=== PATIENT | female | born 1945 | race Caucasian/White ===

== ENCOUNTER → 2017-09-18 15:53 | Outpatient (REF) | payer MEDICARE, OTHER, SELFPAY ==
[2017-09-18 17:33] LABS: Basophils % 0.5 % (0.1-2.0); Eosinophils # 0.1 K/mm3 (0.0-0.4); Eosinophils % 1.6 % (0.1-12.0); Hemoglobin 15.5 g/dL (12.2-16.2); Lymphocytes # 2.8 K/mm3 (0.7-4.5); Mean Corpuscular HGB Conc 31.7 g/dL (31.8-35.4); Monocytes # 0.4 K/mm3 (0.1-1.0); Neutrophils # 4.9 K/mm3 (1.8-7.8); Neutrophils % 58.9 % (37.0-80.0); Platelet Count 177 K/mm3 (142-424); Red Cell Distribution Width 13.3 % (11.5-17.5); White Blood Count 8.2 K/mm3 (4.8-10.8)
[2017-09-18 19:52] LABS: Alanine Aminotransferase 49 U/L (12-78); Albumin Level 3.9 gm/dL (3.4-5.0); Alkaline Phosphatase 137 U/L (46-116); Aspartate Amino Transferase 52 U/L (15-37); Bilirubin,Total 0.4 mg/dL (0.2-1.0); Blood Urea Nitrogen 8 mg/dL (7-18); Calcium 10.1 mg/dL (8.5-10.1); Carbon Dioxide 30 mmol/L (21.0-32.0); Chloride 100 mmol/L (98-107); Chol/HDL Ratio 5.7 (1-3.5); Cholesterol 200 mg/dL (140-200); Creatinine,Serum 0.68 mg/dL (0.55-1.02); Estimated Glomerular Filt Rate 86 ml/min (>60); GFR (African American) 104 ML/MIN (>60); Globulin 3.8 gm/dl (1.3-3.2); Glucose 92 mg/dL (74-106); HDL Cholesterol 35 mg/dL (29-89); LDL Cholesterol 119 mg/dL (0-130); Magnesium 1.8 mg/dL (1.4-2.2); Sodium 139 mmol/L (136-145); T4 (Thyroxine) 11.5 ug/dl (4.7-13.3); Thyroid Stimulating Hormone 2.66 uIU/ml (0.358-3.740); Total Protein,Serum 7.7 gm/dL (6.4-8.2); Triglycerides 232 mg/dL (30-200); VLDL Cholesterol 46 mg/dL (0-40)
== END ==
LOC: LAB 15:53
PROVIDERS: Visit Provider Physician Assistant
DX: R53.83 Other fatigue (principal); I10 Essential (primary) hypertension; I49.8 Other specified cardiac arrhythmias
CPT/HCPCS: 80053; 80061; 83735; 84436; 84443; 85025

== ENCOUNTER → 2018-04-02 10:27 | Outpatient (POV) | payer MEDICARE, OTHER, SELFPAY | PROVIDERS: Visit Provider Dermatology | DX: Z00.00 Encounter for general adult medical examination without abnormal findings (principal) ==

== ENCOUNTER → 2019-02-19 18:10 | Outpatient (CLI) | payer MEDICARE, OTHER, SELFPAY ==
[2019-02-19 20:13] LABS: Amphetamine/Metha Screen,Urine Negative ng/mL (<1000); Barbiturates Screen,Urine Negative ng/mL (<200); Benzodiazepines Screen,Urine Positive ng/mL (<200); Cannabinoid Screen,Urine Negative ng/mL (<50); Cocaine Screen,Urine Negative ng/mL (<300); Methadone Screen,Urine Negative ng/mL (<300); Opiate Screen,Urine Negative ng/mL (<300); Phencyclidine Screen,Urine Negative ng/mL (<25)
== END ==
PROVIDERS: Visit Provider Nurse Practitioner Family
DX: Z79.899 Other long term (current) drug therapy (principal)
CPT/HCPCS: 80305

== ENCOUNTER → 2019-02-25 17:14 | Outpatient (CLI) | payer MEDICARE, OTHER, SELFPAY ==
[2019-02-25 17:30] LABS: Basophils # 0.1 K/mm3 (0-0.2); Basophils % 0.7 % (0.1-2.0); Eosinophils # 0.1 K/mm3 (0.0-0.4); Eosinophils % 1.3 % (0.1-12.0); Hematocrit 44.6 % (37.0-47.0); Hemoglobin 14.6 g/dL (12.2-16.2); Lymphocytes # 2.9 K/mm3 (0.7-4.5); Lymphocytes % 34.2 % (10-50); Mean Corpuscular HGB Conc 32.8 g/dL (31.8-35.4); Mean Corpuscular Hemoglobin 32.9 pg (27.0-31.2); Mean Corpuscular Volume 100.3 fl (81-99); Mean Platelet Volume 10.1 fl (7.4-10.4); Monocytes # 0.4 K/mm3 (0.1-1.0); Monocytes % 4.5 % (1.7-9.3); Neutrophils % 59.3 % (37.0-80.0); Platelet Count 168 K/mm3 (142-424); Red Blood Count 4.44 M/mm3 (4.20-5.40); Red Cell Distribution Width 13.4 % (11.5-17.5); White Blood Count 8.4 K/mm3 (4.8-10.8)
[2019-02-25 18:16] LABS: Anion Gap 15.5 mEq/L (5-15); Blood Urea Nitrogen 10 mg/dL (7-18); Calcium 9.8 mg/dL (8.5-10.1); Carbon Dioxide 26 mmol/L (21.0-32.0); Chloride 100 mmol/L (98-107); Creatinine,Serum 0.63 mg/dL (0.55-1.02); Estimated Glomerular Filt Rate 93 ml/min (>60); GFR (African American) 112 ML/MIN (>60); Glucose 94 mg/dL (74-106); Potassium 4.5 mmoL/L (3.5-5.1); Sodium 137 mmol/L (136-145)
[2019-02-27 13:20] LABS: Vitamin B12 662 pg/mL (232-1245)
[2019-02-27 13:21] LABS: Folate >20.0 ng/mL (>3.0)
== END ==
PROVIDERS: Visit Provider Physician Assistant
DX: H35.342 Macular cyst, hole, or pseudohole, left eye (principal); M10.9 Gout, unspecified; D64.9 Anemia, unspecified
CPT/HCPCS: 80048; 82607; 82746; 85025

== ENCOUNTER → 2019-06-13 10:53 | Outpatient (CLI) | payer MEDICARE, OTHER, SELFPAY ==
--- NOTE | 2019-06-13 10:55 | XR_ITS ---
PROCEDURE: XR CHEST 2V CLINICAL HISTORY: Cough COMPARISON: CXR CHEST(2 VIEWS-NOT PORTABLE) from 01/16/2014 FINDINGS: The cardiomediastinal silhouette and pulmonary vascularity are within normal limits. Patchy infiltrate is present in the right lower lung zone. There is COPD changes No acute bony abnormalities. IMPRESSION: COPD with patchy right lower lobe infiltrate Dictated by: Gibson Yang MD 06/13/2019 11:19 Electronically signed by Gibson Yang MD in [facility] 06/13/2019 11:19
== END ==
PROVIDERS: PCP Physician Assistant; Visit Provider Physician Assistant
DX: R05 Cough (principal)
CPT/HCPCS: 71046

== ENCOUNTER → 2019-06-18 07:48 | Outpatient (CLI) | payer MEDICARE, OTHER, SELFPAY ==
--- NOTE | 2019-06-18 07:48 | MR_ITS ---
PROCEDURE: MR HEAD/BRAIN WO CON CLINICAL INDICATION: TIAs Severe headache with dizziness, TIAs the COMPARISON: No exams were available for comparison TECHNIQUE: Routine multiplanar multi echo sequences are performed without gadolinium enhancement. FINDINGS: No midline shift, mass effect, intracranial hemorrhage, or hydrocephalus. There are scattered periventricular and subcortical T2 white matter hyperintensities which do not demonstrate restricted diffusion consistent with ischemic gliotic change from microvascular disease. A small T2 hyperintensity is present in the left posterior basal ganglia and could be due to an old small lacunar infarction. No acute infarction is evident. The cerebellopontine angles, cerebellum, and brainstem are unremarkable. There is partial empty sella as a normal variant. No pituitary mass. The optic chiasm corpus callosum and craniocervical junction have an unremarkable appearance. No mastoid effusion or sinus air-fluid level. IMPRESSION: 1. No acute intracranial findings. 2. Scattered periventricular and subcortical T2 white matter hyperintensities which may be due to ischemic gliotic change from microvascular disease. Differential diagnosis includes migraine headache and demyelinating process. There appears to be an old small lacunar infarction in the left basal ganglia posteriorly Dictated by: Gibson Yang MD 06/19/2019 09:59 Electronically signed by Gibson Yang MD in [facility] 06/19/2019 09:59
--- NOTE | 2019-06-18 07:48 | US_ITS ---
PROCEDURE: US ABDOMEN COMPLETE CLINICAL INDICATION: AAA noted on CT of ABD 12/2018 COMPARISON: ABD US ABD(COMPLETE-MULTI ORGANS from 12/29/2015 CT ABDOMEN PELVIS WO CON from 01/03/2019 FINDINGS: PANCREAS: Unremarkable. No obvious mass or abnormal fluid collection. No ductal dilatation LIVER: No focal liver lesions demonstrated. Homogeneous echogenicity. No intrahepatic biliary ductal dilatation evident. There is appropriate direction of blood flow within a non dilated portal vein RIGHT KIDNEY: Unremarkable. Normal size and echogenicity. No hydronephrosis LEFT KIDNEY: There are 2 small cyst along the lower pole the left kidney at 2 and 1 cm GALLBLADDER: Status post cholecystectomy. Normal common bile duct at 3 mm. AORTA: There is a lower abdominal aortic aneurysm lobular in contour with the superior aspect measuring 3 cm in AP tapering to 2 cm and then again dilating to 3 cm. Maximum transverse dimension is 3.6 cm. SPLEEN: Unremarkable. Normal size and echogenicity ASCITES: None demonstrated. IMPRESSION: 1. Status post cholecystectomy. 2. 3.6 cm infrarenal abdominal aortic aneurysm Dictated by: Gibson Yang MD 06/18/2019 19:32 Electronically signed by Gibson Yang MD in [facility] 06/18/2019 19:32
== END ==
PROVIDERS: PCP Internal Medicine; Visit Provider Internal Medicine Cardiovascular Disease
DX: Q21.1 Atrial septal defect (principal); R00.2 Palpitations; R06.00 Dyspnea, unspecified; I71.4 Abdominal aortic aneurysm, without rupture; G45.9 Transient cerebral ischemic attack, unspecified
CPT/HCPCS: 70551; 76700; 93306

== ENCOUNTER → 2019-08-05 14:23 | Outpatient (CLI) | payer MEDICARE, OTHER, SELFPAY ==
--- NOTE | 2019-08-05 14:26 | XR_ITS ---
PROCEDURE: XR CHEST 2V CLINICAL HISTORY: PNEUMONIA FU Smoker COMPARISON: CXR CHEST(2 VIEWS-NOT PORTABLE) from 01/16/2014 XR CHEST 2V from 06/13/2019 FINDINGS: The cardiomediastinal silhouette and pulmonary vascularity are within normal limits. Coronary artery calcifications Changes of COPD. There are persistent increased markings in the right lower lobe. This is not significantly changed and could represent residual infiltrate or atelectatic or fibrotic changes. There is evidence of old granulomatous disease. Left lung is clear. No acute bony anomalies.. There are is also some increased density in the right middle lobe IMPRESSION: Persistent patchy density in the right lower lobe and also some increased markings in the right middle lobe which may be due to underlying residual infiltrate, atelectatic change, or fibrotic change. Chest CT may provide further evaluation in this patient with history of smoking Dictated by: Gibson Yang MD 08/05/2019 14:51 Electronically signed by Gibson Yang MD in [facility] 08/05/2019 14:51
== END ==
PROVIDERS: PCP Internal Medicine; Visit Provider Internal Medicine
DX: J18.9 Pneumonia, unspecified organism (principal)
CPT/HCPCS: 71046

== ENCOUNTER → 2019-08-13 14:45 | Outpatient (CLI) | payer MEDICARE, OTHER, SELFPAY ==
--- NOTE | 2019-08-13 14:51 | CT_ITS ---
PROCEDURE: CT CHEST WO CON CLINICAL INDICATION: PERSISTENT RT LL INFILTRATE Follow-up persistent pneumonia, cough, abnormal chest x-ray, smoker COMPARISON: CT ABDOMEN PELVIS WO CON from 01/03/2019 XR CHEST 2V from 08/05/2019 TECHNIQUE: Axial images obtained with sagittal and coronal reformats. All CT scans at the facility use one or more dose reduction, viz: automated exposure control, ma/kV adjustment per patient size (including targeted exams where dose is matched to indication, i.e. head), or iterative reconstruction technique. FINDINGS: HEART AND MEDIASTINAL STRUCTURES: Scattered small nodes are present in the mediastinum measuring up to 1.6 x 1.3 cm in the pretracheal region. A precarinal node is present measuring up to 1.4 by 0.9 cm. That no does contain some calcium. There are calcified hilar lymph nodes on the right. Coronary artery calcifications are present. There is normal heart size. LUNGS AND PLEURAL SPACES: There is faint mosaic mostly peripheral ground-glass attenuation in both upper lobes and in the lower lobes posteriorly with some mild interlobular septal thickening in the lung bases posteriorly. There is a calcified granuloma in the superior segment of the right lower lobe. A noncalcified 4 mm nodules present in the left upper lobe posteriorly the BONY STRUCTURES: No acute bony abnormalities apparent. UPPER ABDOMEN: There are scattered small nodes in the celiac and portal region which are nonspecific. ADDITIONAL FINDINGS: No other significant abnormalities. IMPRESSION: 1. Mosaic mostly peripheral ground-glass attenuation in both upper lobes and lower lobes associated with some interlobular septal thickening. This is nonspecific but may be seen with interstitial lung disease. Resolving edema or pneumonitis is also considered. 2. 4 mm noncalcified nodule left upper lobe posteriorly. Consider six-month follow-up. 3. Mild mediastinal adenopathy Dictated by: Gibson Yang MD 08/14/2019 08:33 Electronically signed by Gibson Yang MD in [facility] 08/14/2019 08:33
== END ==
PROVIDERS: PCP Internal Medicine; Visit Provider Internal Medicine
DX: R91.8 Other nonspecific abnormal finding of lung field (principal)
CPT/HCPCS: 71250

== ENCOUNTER → 2019-08-25 08:35 | Outpatient (CLI) | payer MEDICARE, OTHER, SELFPAY ==
--- NOTE | 2019-08-25 08:40 | CA_ITS ---
APPROVED REPORT Post Form Remover: CT Laterality: Bilateral Study Quality: Adequate Indications: HTN, AAA, HLD, CAD, PAD Doppler Spectral Velocity Analysis ECA (R) 106.20/12.00 cm/s ECA (L) 299.40/19.20 cm/s dICA (R) 102.00/35.10 cm/s dICA (L) 99.40/38.50 cm/s Ivy (R) 123.40/40.30 cm/s Ivy (L) 102.70/31.00 cm/s pICA (R) 90.80/29.10 cm/s pICA (L) 105.80/22.30 cm/s dCCA (R) 60.40/19.90 cm/s dCCA (L) 51.30/17.10 cm/s pCCA (R) 56.50/12.80 cm/s pCCA (L) 61.00/17.30 cm/s Vert (R) 45.60/15.40 cm/s Vert (L) 49.20/11.80 cm/s ICA/CCA 2.00 ICA/CCA 2.10 Conclusion Duplex evaluation demonstrates stenosis of the right proximal internal carotid artery <20%. Duplex evaluation demonstrates stenosis of the left proximal internal carotid artery <20%, plaque noted in the bulb. Duplex evaluation demonstrates antegrade flow of the bilateral Vertebral Arteries. Electronically signed by : Gibson Yang MD 08/25/2019 18:20:47
== END ==
PROVIDERS: PCP Internal Medicine; Visit Provider Internal Medicine
DX: R09.89 Other specified symptoms and signs involving the circulatory and respiratory systems (principal); Z86.73 Personal history of transient ischemic attack (TIA), and cerebral infarction without residual deficits
CPT/HCPCS: 93880

== ENCOUNTER → 2019-11-26 07:57 | Outpatient (CLI) | payer MEDICARE, OTHER, SELFPAY ==
--- NOTE | 2019-11-26 08:09 | US_ITS ---
PROCEDURE: US ABDOMEN COMPLETE CLINICAL INDICATION: KIDNEY CYST,ABD PAIN COMPARISON: US US ABDOMEN COMPLETE from 06/18/2019 FINDINGS: PANCREAS: Unremarkable. No obvious mass or abnormal fluid collection. No ductal dilatation LIVER: No focal liver lesions demonstrated. Homogeneous echogenicity. No intrahepatic biliary ductal dilatation evident. There is appropriate direction of blood flow within a non dilated portal vein RIGHT KIDNEY: Unremarkable. Normal size and echogenicity. No hydronephrosis LEFT KIDNEY: There is a small septated cyst along the lower pole of the left kidney at 2.3 x 1.9 cm not significantly changed GALLBLADDER: Status post cholecystectomy. Common bile duct is normal at 4 mm. AORTA: There is an abdominal aortic aneurysm fusiform in nature measuring 3.1 x 3.4 cm AP and transverse. The abdominal aorta has a somewhat our glass shape at 3.3 cm AP them be coming 2.3 cm AP then becoming 3.2 cm AP. SPLEEN: Unremarkable. Normal size and echogenicity ASCITES: None demonstrated. IMPRESSION: 1. No change 3 cm abdominal aortic aneurysm 2. No change septated left renal cyst Dictated b Gibson Yang MD 11/26/2019 16:02 Gibson Yang MD in [facility] 11/26/2019 16:02
== END ==
PROVIDERS: PCP Internal Medicine; Visit Provider Internal Medicine
DX: N28.1 Cyst of kidney, acquired (principal); R10.84 Generalized abdominal pain
CPT/HCPCS: 76700

== ENCOUNTER → 2020-03-16 08:28 | Outpatient (CLI) | payer MEDICARE, OTHER, SELFPAY ==
--- NOTE | 2020-03-16 08:31 | CT_ITS ---
PROCEDURE: CT CHEST WO CON CLINICAL INDICATION: F/U LUNG NODULE Follow-up lung nodule COMPARISON: CT CT CHEST WO CON from 08/13/2019 TECHNIQUE: Axial images obtained with sagittal and coronal reformats. All CT scans at the facility use one or more dose reduction, viz: automated exposure control, ma/kV adjustment per patient size (including targeted exams where dose is matched to indication, i.e. head), or iterative reconstruction technique. FINDINGS: HEART AND MEDIASTINAL STRUCTURES: There is mild mediastinal adenopathy. Pretracheal node measures up to 1.5 by 1.2 cm not significantly changed. Calcified node is present in the right hilum. Coronary artery calcifications are present. There is mild dilatation of the descending thoracic aorta at 2.6 cm. LUNGS AND PLEURAL SPACES: Changes of COPD the there is mild diffuse ground-glass attenuation of the lungs similar to the previous exam. Calcified nodule is present in the superior segment of the right lower lobe. There are mild atelectatic changes in the lower lobes. There is a 4 mm noncalcified nodule in the left upper lobe posteriorly not significantly changed. No new nodules are evident. BONY STRUCTURES: No acute bony abnormalities apparent. UPPER ABDOMEN: Unremarkable. ADDITIONAL FINDINGS: No other significant abnormalities. IMPRESSION: Overall stable CT appearance of the chest. No change in the 4 mm left upper lobe pulmonary nodule. Annual follow-up suggested. No change mild mediastinal adenopathy. Persistent mosaic ground-glass attenuation in both upper and lower lobes associated with some mild interlobular septal thickening consistent with interstitial lung disease. Dictated by: Gibson Yang MD 03/17/2020 11:23 Gibson Yang MD in [facility] 03/17/2020 11:23
== END ==
PROVIDERS: PCP Internal Medicine; Visit Provider Internal Medicine
DX: R91.8 Other nonspecific abnormal finding of lung field (principal)
CPT/HCPCS: 71250

== ENCOUNTER → 2020-03-16 08:32 | Outpatient (CLI) | payer SELFPAY ==
--- NOTE | 2020-03-16 08:39 | CT_ITS ---
PROCEDURE: CT HEART W CALCIUM SCORE CLINICAL HISTORY: SCREENING COMPARISON: No exams were available for comparison TECHNIQUE: Axial images obtained with sagittal and coronal reformats. All CT scans at the facility use one or more dose reduction, viz: automated exposure control, ma/kV adjustment per patient size (including targeted exams where dose is matched to indication, i.e. head), or iterative reconstruction technique. FINDINGS: Coronary artery calcium score is 200 indicating moderate plaque burden with high cardiovascular disease risk. Incidental note is made old granulomatous disease with partially calcified mediastinal lymph nodes. COPD with interstitial thickening also noted with some mild peripheral pulmonary fibrosis with crazy paving peripherally as seen with interstitial lung disease. IMPRESSION: Moderate calcific plaque burden with high cardiovascular disease risk Interstitial lung disease Dictated by: Gibson Yang MD 03/16/2020 09:33 Gibson Yang MD in [facility] 03/16/2020 09:33
== END ==
PROVIDERS: PCP Internal Medicine; Visit Provider Internal Medicine
DX: Z13.6 Encounter for screening for cardiovascular disorders (principal)
CPT/HCPCS: 75571

== ENCOUNTER → 2020-06-16 08:27 | Outpatient (CLI) | payer MEDICARE, OTHER, SELFPAY ==
--- NOTE | 2020-06-16 08:32 | US_ITS ---
PROCEDURE: US AORTA CLINICAL INDICATION: AAA Follow-up aortic aneurysm COMPARISON: US US ABDOMEN COMPLETE from 11/26/2019 FINDINGS: There is fusiform dilatation of the abdominal aorta. Along the superior aspect of the aneurysm the AP dimension is 3.5 cm then becoming 2.4 cm and in the timing 3 cm. Previously the largest AP dimension was 3.4 cm. Common iliacs are not dilated. IMPRESSION: Fusiform abdominal aortic aneurysm overall not significantly changed Dictated by: Gibson Yang MD 06/16/2020 17:16 Gibson Yang MD in [facility] 06/16/2020 17:16
== END ==
PROVIDERS: PCP Internal Medicine; Visit Provider Internal Medicine Cardiovascular Disease
DX: I71.4 Abdominal aortic aneurysm, without rupture (principal)
CPT/HCPCS: 76770

== ENCOUNTER → 2020-07-07 11:09 | Outpatient (CLI) | payer MEDICARE, OTHER, SELFPAY ==
--- NOTE | 2020-07-07 11:10 | NM_ITS ---
APPROVED REPORT Exam: Nuclear Stress Test Indication: H/O VT, DYSRHYTNMIA, HTN, TOB USE, FM HX, PALPITATIONS, FATIGUE Patient Location: Outpatient Ht: 5 ft 1 in Wt: 151 lbs Bra Size: 34B BSA: 1.68 m2 BMI: 28.5 History: H/O VT, DYSRHYTNMIA, HTN, TOB USE, FM HX, PALPITATIONS, FATIGUE PT REFUSED TO STAY AND FINISH THE STRESS PORTION OF THE TEST, BECAUSE OF TIME SCHEDULE.incomplete stress test due to pts refusal. Cardiac Stress and Resting SPECT Images: Cardiac Stress and Resting SPECT images were obtained using technetium 99m Myoview mCi stress and 10.52 mCi at rest. Conclusion: 1.incomplete stres test as described above. Electronically signed by : Renny Gutierrez, 07/30/2020 13:25:21
== END ==
PROVIDERS: PCP Internal Medicine; Visit Provider Internal Medicine Cardiovascular Disease
DX: R06.00 Dyspnea, unspecified (principal); I25.10 Atherosclerotic heart disease of native coronary artery without angina pectoris; I25.84 Coronary atherosclerosis due to calcified coronary lesion; I48.91 Unspecified atrial fibrillation
CPT/HCPCS: 78451; A9502

== ENCOUNTER → 2020-10-08 14:21 | Outpatient (CLI) | payer MEDICARE, OTHER, SELFPAY ==
--- NOTE | 2020-10-08 14:32 | CT_ITS ---
PROCEDURE: CT HEAD/BRAIN WO CON CLINICAL INDICATION: CONFUSION, LT ARM NUMBNESS COMPARISON: CT CT HEAD/BRAIN WO CON from 01/03/2019 TECHNIQUE: Axial images obtained. All CT scans at the facility use one or more dose reduction, viz: automated exposure control, ma/kV adjustment per patient size (including targeted exams where dose is matched to indication, i.e. head), or iterative reconstruction technique. FINDINGS: No midline shift, mass effect, intracranial hemorrhage, hydrocephalus, or extra-axial fluid collection is evident. The calvarium has an unremarkable appearance. No mastoid effusion. No sinus air-fluid level. IMPRESSION: No acute intracranial finding Dictated by: Gibson Yang MD 10/08/2020 15:44 Gibson Yang MD in [facility] 10/08/2020 15:44
[2020-10-08 14:48] LABS: Blood Urea Nitrogen 8 mg/dl (7-17); Estimated Glomerular Filt Rate 98 ml/min (>60); GFR (African American) 119 ML/MIN (>60)
== END ==
PROVIDERS: Visit Provider Internal Medicine
DX: R41.0 Disorientation, unspecified (principal); R20.0 Anesthesia of skin
CPT/HCPCS: 36415; 70450; 82565; 84520

== ENCOUNTER → 2020-11-18 11:29 | Outpatient (CLI) | payer MEDICARE, OTHER, SELFPAY ==
--- NOTE | 2020-11-18 11:32 | CA_ITS ---
APPROVED REPORT Bartender Helper: Tiny Weaver RVT Laterality: Bilateral Study Quality: Good Indications: LT BRUIT,TIA Risk Factors Hypertension: TIA/CVA History Smoking Doppler Spectral Velocity Analysis ECA (R) 106.90/8.60 cm/s ECA (L) 66.30/11.80 cm/s dICA (R) 93.00/28.90 cm/s dICA (L) 78.10/28.90 cm/s Ivy (R) 103.70/40.60 cm/s Ivy (L) 95.20/26.70 cm/s pICA (R) 77.00/24.60 cm/s pICA (L) 113.30/25.70 cm/s dCCA (R) 39.60/15.00 cm/s dCCA (L) 39.60/15.00 cm/s pCCA (R) 46.00/11.80 cm/s pCCA (L) 38.50/13.90 cm/s Vert (R) 58.80/12.80 cm/s Vert (L) 48.80/8.60 cm/s ICA/CCA 2.62 ICA/CCA 2.86 Findings Study suggests less than 20% stenosis of the right internal cartoid artery. Study suggests 20-49% stenosis (lower end of scale) of the left internal cartoid artery. Antegrade flow seen bilateral vertebral arteries. Conclusion Study suggests less than 20% stenosis of the right internal cartoid artery. Study suggests 20-49% stenosis (lower end of scale) of the left internal cartoid artery. Antegrade flow seen bilateral vertebral arteries. Electronically signed by : Gibson Yang MD 11/18/2020 16:18:18
== END ==
PROVIDERS: PCP Internal Medicine; Visit Provider Internal Medicine
DX: I65.22 Occlusion and stenosis of left carotid artery (principal)
CPT/HCPCS: 93880

== ENCOUNTER → 2021-03-01 09:41 | Outpatient (CLI) | payer MEDICARE, OTHER, SELFPAY ==
--- NOTE | 2021-03-01 09:44 | US_ITS ---
PROCEDURE: US AORTA CLINICAL INDICATION: AORTIC ANEURYSM FU COMPARISON: CT CT ABDOMEN PELVIS WO CON from 01/03/2019 US US AORTA from 06/16/2020 FINDINGS: There is mild fusiform dilatation the mid abdominal aorta at 3.6 cm proximally narrowing to 2.7 cm and then becoming dilated again at 3.6 cm. The aortic bifurcation measures 2 cm. Proximal common iliacs are unremarkable. IMPRESSION: No change abdominal aortic aneurysm measuring up to 3.6 cm Dictated by: Gibson Yang MD 03/02/2021 08:53 Gibson Yang MD in [facility] 03/02/2021 08:53
== END ==
PROVIDERS: PCP Internal Medicine; Visit Provider Internal Medicine
DX: I71.4 Abdominal aortic aneurysm, without rupture (principal)
CPT/HCPCS: 76770

== ENCOUNTER → 2021-04-11 11:36 | Outpatient (CLI) | payer MEDICARE, OTHER, SELFPAY ==
--- NOTE | 2021-04-11 11:49 | XR_ITS ---
PROCEDURE: XR ACUTE ABDOMEN SERIES CLINICAL INDICATION: EPIGASTRIC PAIN, NAUSEA COMPARISON: CR CXR CHEST(2 VIEWS-NOT PORTABLE) from 01/16/[address] ABDOMEN PELVIS WO CON from 01/03/[address] CHEST WO CON from 03/16/2020 FINDINGS: Frontal view of the chest shows COPD changes with some prominence of the interstitium in the lung bases. Increased markings are present in the lower lobes right greater than left and may be due to chronic interstitial changes. Cannot exclude patchy infiltrate in the right lung base. Upright and supine views of the abdomen show nonspecific bowel gas pattern. No intestinal obstruction or free air. Diffuse vascular calcifications. The numerous calcifications overlie the mid aspect of the left kidney medially suggesting nephrolithiasis. Some of these could be vascular as well. Other findings:None. IMPRESSION: COPD with chronic changes of the chest with possible right basilar infiltrate Calcifications overlie the left renal hilum and mid aspect of the left kidney and may be vascular or due to nephrolithiasis. Dictated by: Gibson Yang MD 04/11/2021 13:35 Gibson Yang MD in [facility] 04/11/2021 13:35
[2021-04-11 12:03] LABS: Basophils # 0.2 K/mm3 (0-0.2); Basophils % 1.8 % (0.1-2.0); Eosinophils # 0.2 K/mm3 (0.0-0.4); Eosinophils % 2.2 % (0.1-12.0); Hematocrit 44.8 % (37.0-47.0); Hemoglobin 14.5 g/dL (12.2-16.2); Lymphocytes # 2.6 K/mm3 (0.7-4.5); Lymphocytes % 27.2 % (10-50); Mean Corpuscular HGB Conc 32.4 g/dL (31.8-35.4); Mean Corpuscular Hemoglobin 32.7 pg (27.0-31.2); Mean Corpuscular Volume 100.7 fl (81-99); Mean Platelet Volume 9.2 fl (7.4-10.4); Monocytes # 0.4 K/mm3 (0.1-1.0); Monocytes % 4.6 % (1.7-9.3); Neutrophils # 6.1 K/mm3 (1.8-7.8); Neutrophils % 64.1 % (37.0-80.0); Platelet Count 194 K/mm3 (142-424); Red Blood Count 4.45 M/mm3 (4.20-5.40); Red Cell Distribution Width 13.6 % (11.5-17.5); White Blood Count 9.5 K/mm3 (4.8-10.8)
[2021-04-11 12:12] LABS: Alanine Aminotransferase 37 U/L (12-78); Albumin Level 4.4 g/dl (3.5-5.0); Albumin/Globulin Ratio 1.3 (1.1-1.8); Alkaline Phosphatase 124 U/L (38-126); Amylase 64 U/L (30-110); Anion Gap 11.7 mEq/L (5-15); Aspartate Amino Transferase 67 U/L (14-36); Bilirubin,Total 0.7 mg/dl (0.2-1.3); Blood Urea Nitrogen 7 mg/dl (7-17); Calcium 10.3 mg/dl (8.4-10.2); Carbon Dioxide 29 mmol/L (22.0-30.0); Chloride 100 mmol/L (98-107); Estimated Glomerular Filt Rate 98 ml/min (>60); GFR (African American) 118 ML/MIN (>60); Globulin 3.4 g/dL (1.3-3.2); Glucose 115 mg/dl (74-100); Potassium 4.7 mmoL/L (3.5-5.1); Sodium 136 mmol/L (136-145); Total Protein,Serum 7.8 g/dl (6.3-8.2)
== END ==
PROVIDERS: Visit Provider Internal Medicine
DX: R10.13 Epigastric pain (principal); R11.0 Nausea
CPT/HCPCS: 36415; 74021; 80053; 82150; 85025

== ENCOUNTER → 2021-04-20 12:32 | Outpatient (CLI) | payer MEDICARE, OTHER, SELFPAY ==
--- NOTE | 2021-04-20 12:38 | US_ITS ---
FINAL REPORT CLINICAL HISTORY: poss upper abd mass FINDINGS: ABDOMINAL ULTRASOUND COMPLETE: TECHNIQUE: Ultrasound images of the abdomen were obtained. FINDINGS: The liver is fatty infiltrated. The gallbladder is surgically absent. The common duct is normal. The right kidney measures 8.8 cm in length and is normal in echogenicity without hydronephrosis. The left kidney measures 9.5 cm in length and is normal in echogenicity without hydronephrosis. There is a 2.4 cm septated cyst in the left kidney. The spleen is unremarkable. There is a bilobed abdominal aortic aneurysm measuring up to 3.4 cm. The vena cava is unremarkable. IMPRESSION: Bilobed abdominal aortic aneurysm up to 3.4 cm. Fatty infiltration of the liver. Septated left renal cyst. Reviewed, Interpreted and Dictated by Tanvir Gasca MD Transcribed by Yoni Gaspar Authenticated by Tanvir Gasca MD on 04/20/2021 03:14:[address] [facility]
== END ==
PROVIDERS: PCP Family Medicine; Visit Provider Family Medicine
DX: R19.09 Other intra-abdominal and pelvic swelling, mass and lump (principal)
CPT/HCPCS: 76700

== ENCOUNTER → 2021-05-02 09:25 | Outpatient (CLI) | payer MEDICARE, OTHER, SELFPAY ==
--- NOTE | 2021-05-02 09:30 | FL_ITS ---
FINAL REPORT CLINICAL HISTORY: . abd pain, bloating, questionable mass fluoro time-1.50 FINDINGS: On the band splicer image, a normal bowel gas pattern is identified. Postoperative changes are seen in the right upper quadrant. The patient ingested barium without difficulty. The esophagus has an unremarkable appearance. Mild gastroesophageal reflux was demonstrated. The stomach has an unremarkable appearance. The duodenum is normal. The contrast is seen to the colon by 60 minutes. No focal abnormality is seen of the small bowel. A total of 1.5 minutes of fluoroscopy time was utilized. IMPRESSION: Mild gastroesophageal reflux. Unremarkable small bowel. Authenticated by Jed Khoury III, MD on 05/02/2021 03:29:10 PM [facility]
== END ==
PROVIDERS: PCP Family Medicine; Visit Provider Family Medicine
DX: R10.10 Upper abdominal pain, unspecified (principal); R19.09 Other intra-abdominal and pelvic swelling, mass and lump
CPT/HCPCS: 74246; 74248

== ENCOUNTER → 2021-07-13 12:50 | Outpatient (CLI) | payer MEDICARE, OTHER, SELFPAY ==
[2021-07-13 13:49] LABS: Alanine Aminotransferase 26 U/L (12-78); Albumin Level 4.4 g/dl (3.5-5.0); Albumin/Globulin Ratio 1.4 (1.1-1.8); Alkaline Phosphatase 99 U/L (38-126); Anion Gap 12.3 mEq/L (5-15); Aspartate Amino Transferase 44 U/L (14-36); Bilirubin,Total 0.8 mg/dl (0.2-1.3); Blood Urea Nitrogen 8 mg/dl (7-17); Calcium 9.5 mg/dl (8.4-10.2); Carbon Dioxide 27 mmol/L (22.0-30.0); Chloride 104 mmol/L (98-107); Estimated Glomerular Filt Rate 98 ml/min (>60); GFR (African American) 118 ML/MIN (>60); Globulin 3.1 g/dL (1.3-3.2); Glucose 114 mg/dl (74-100); Potassium 4.3 mmoL/L (3.5-5.1); Sodium 139 mmol/L (136-145); Total Protein,Serum 7.5 g/dl (6.3-8.2)
== END ==
PROVIDERS: PCP Family Medicine; Visit Provider Family Medicine
DX: R10.10 Upper abdominal pain, unspecified (principal)
CPT/HCPCS: 36415; 80053

== ENCOUNTER → 2021-07-14 08:40 | Outpatient (CLI) | payer MEDICARE, OTHER, SELFPAY ==
--- NOTE | 2021-07-14 08:46 | CT_ITS ---
FINAL REPORT TECHNIQUE: Pre- and postcontrast images of the abdomen were performed by computed tomography. This study was performed with techniques to keep radiation doses as low as reasonably achievable (ALARA). Individualized dose reduction techniques using automated exposure control or adjustment of mA and/or kV according to the patient's size were employed. CLINICAL HISTORY: UPPER ABD. PAIN COMPARISON: January 08, 2019 FINDINGS: There is mild to moderate scarring/fibrosis in the lung bases. The liver has a mildly irregular contour of uncertain significance but could represent cirrhosis. There are postoperative changes from cholecystectomy. Splenomegaly is again noted measuring 13.3 cm in length. The adrenals are normal. The pancreas is unremarkable. There is infrarenal abdominal aneurysm measuring up to 3.9 cm in previously measured up to 3.5 cm. There is a small amount of mural thrombosis. There are several left renal cysts measuring up to 1.9 cm. IMPRESSION: Mildly irregular liver contour of uncertain significance, could represent cirrhosis. Splenomegaly again noted. Infrarenal abdominal aneurysm measuring up to 3.9 cm. Several left renal cysts measuring up to 1.9 cm. Reviewed, Interpreted and Dictated by Jed Khoury III, MD Transcribed by Sheri Mcguire Authenticated by Jed Khoury III, MD on 07/14/2021 10:59:04 AM [facility]
== END ==
PROVIDERS: PCP Family Medicine; Visit Provider Family Medicine
DX: R10.10 Upper abdominal pain, unspecified (principal)
CPT/HCPCS: 74170; Q9967

== ENCOUNTER 2022-01-28 23:10 | Emergency (ER) | payer MEDICARE, OTHER, SELFPAY ==
[2022-01-28 23:11] VITALS: BP 145/64; PULSE 72; RESP 18; TEMP 36.7; O2SAT 95; BMI 24.1
[2022-01-28 23:57] LABS: Basophils # 0.1 K/mm3 (0-0.2); Basophils % 0.9 % (0.1-2.0); Eosinophils # 0.2 K/mm3 (0.0-0.4); Eosinophils % 2.1 % (0.1-12.0); Hematocrit 44.6 % (37.0-47.0); Hemoglobin 14.4 g/dL (12.2-16.2); Lymphocytes # 3.1 K/mm3 (0.7-4.5); Mean Corpuscular HGB Conc 32.2 g/dL (31.8-35.4); Mean Corpuscular Volume 99.5 fl (81-99); Mean Platelet Volume 9.1 fl (7.4-10.4); Monocytes # 0.4 K/mm3 (0.1-1.0); Monocytes % 4.2 % (1.7-9.3); Neutrophils # 5.2 K/mm3 (1.8-7.8); Neutrophils % 57.8 % (37.0-80.0); Platelet Count 176 K/mm3 (142-424); Red Blood Count 4.48 M/mm3 (4.20-5.40); Red Cell Distribution Width 12.9 % (11.5-17.5)
--- NOTE | 2022-01-29 | CT_ITS ---
PROCEDURE INFORMATION: Exam: CT Abdomen And Pelvis With Contrast Exam date and time: 01/29/2022 12:25 AM Age: 76 years old Clinical indication: Abdominal pain; Acute TECHNIQUE: Imaging protocol: Computed tomography of the abdomen and pelvis with contrast. Radiation optimization: All CT scans at this facility use at least one of these dose optimization techniques: automated exposure control; mA and/or kV adjustment per patient size (includes targeted exams where dose is matched to clinical indication); or iterative reconstruction. Contrast material: ISOVUE; Contrast volume: 75 ml; Contrast route: IV; COMPARISON: CT ABDOMEN WO/W CON 07/14/2021 8:58 AM FINDINGS: Lungs: Subpleural reticular opacities are noted at both lung bases suggesting interstitial lung disease. No superimposed airspace disease. Heart: Normal heart size. Liver: Large fatty liver. Prominent left lobe compared to the right. Liver measures 18.3 cm in length. Gallbladder and bile ducts: Prior cholecystectomy. No biliary tree dilation. Pancreas: Mild pancreatic atrophy without inflammation or mass. Spleen: Spleen measures 13.0 cm in length. Adrenal glands: Normal configuration. Kidneys and ureters: Kidneys are symmetric without evidence of obstruction. Tiny low-attenuation foci are too small to fully characterize but likely cysts. Stomach and bowel: Cecum is in the low midline pelvis. Surgical clips at the base of the cecum suggest prior appendectomy. Decompressed distal colon. Patent rectosigmoid suture line. Nonspecific prominence the gastric folds appears similar to prior. Appendix: See Stomach and bowel finding. Intraperitoneal space: No free air. No significant fluid collection. Vasculature: Infrarenal abdominal aortic aneurysm measures 4.1 x 3.7 cm maximal dimension. No perianeurysmal fibrosis or hemorrhage. Lymph nodes: No enlarged lymph nodes. Urinary bladder: Unremarkable as visualized. Reproductive: Features of prior hysterectomy noted. No evidence of vaginal cuff or adnexal mass. Bones/joints: No fracture or destructive lesion. Soft tissues: Unremarkable. IMPRESSION: 1. Decompressed distal colon is nonspecific but can be seen in early colitis. Otherwise, no acute abnormality to explain patient's abdomen pain. No evidence of urolithiasis. New line unchanged bilobed infrarenal abdominal aortic aneurysm. No features of fibrosis or leak. 2. Fatty liver with configuration concerning for early cirrhosis. 3. Lung bases demonstrate features of interstitial lung disease.
--- NOTE | 2022-01-29 | XR_ITS ---
PROCEDURE INFORMATION: Exam: XR Chest Exam date and time: 01/29/2022 12:17 AM Age: 76 years old Clinical indication: Pain; Right-sided; Additional info: Right scapular pain TECHNIQUE: Imaging protocol: Radiologic exam of the chest. Views: 2 views. COMPARISON: 1. CT CHEST WO CON 03/16/2020 8:[address] CHEST WO CON 08/13/2019 3:05 PM FINDINGS: Lungs: Lungs are hyperinflated. Fine reticular opacities appear similar to prior exam. Pleural spaces: Unremarkable. No pleural effusion. No pneumothorax. Heart/Mediastinum: Unremarkable. No cardiomegaly. Bones/joints: Unremarkable. IMPRESSION: Hyperinflated with stable reticular opacities compatible with previously demonstrated interstitial lung disease. No superimposed acute cardiopulmonary abnormality.
[2022-01-29 00:10] LABS: Alanine Aminotransferase 22 U/L (12-78); Albumin Level 4.4 g/dl (3.5-5.0); Albumin/Globulin Ratio 1.2 (1.1-1.8); Alkaline Phosphatase 165 U/L (38-126); Anion Gap 16.2 mEq/L (5-15); Aspartate Amino Transferase 43 U/L (14-36); Bilirubin,Total 0.6 mg/dl (0.2-1.3); Blood Urea Nitrogen 13 mg/dl (7-17); Calcium 9.4 mg/dl (8.4-10.2); Carbon Dioxide 27 mmol/L (22.0-30.0); Chloride 97 mmol/L (98-107); Creatinine Clearance Estimated 45 mL/min (50-200); Estimated Glomerular Filt Rate 97 ml/min (>60); GFR (African American) 118 ML/MIN (>60); Globulin 3.8 g/dL (1.3-3.2); Glucose 99 mg/dl (74-100); Potassium 4.2 mmoL/L (3.5-5.1); Sodium 136 mmol/L (136-145); Total Protein,Serum 8.2 g/dl (6.3-8.2)
[2022-01-29 00:25] LABS: Troponin I < 0.01 ng/ml (0.00-0.034)
--- NOTE | 2022-01-29 01:41 | HMH.EDGENADL ---
Discharge Plan Disposition Patient Disposition: Home, Self-Care Chief Complaint: PAIN Prescriptions Prescriptions: No Action Ubrelvy 50 mg tablet PO ONCE PRN famotidine [Pepcid] 20 mg tablet 20 mg PO BID fexofenadine [Kyung Allergy] 180 mg tablet 180 mg PO DAILY cetirizine [Zyrtec] 10 mg tablet 10 mg PO DAILY PRN metoprolol succinate 100 mg tablet extended release 24 hr 50 mg PO BID folic acid 800 mcg tablet 0.8 mg PO DAILY cholecalciferol (vitamin D3) 50 mcg (2,000 unit) capsule 2,000 unit PO DAILY omega-3 fatty acids [Fish Oil Concentrate] 1,000 mg capsule 1,000 mg PO BID clopidogrel [Plavix] 75 mg tablet 75 mg PO DAILY Qty: 90 1RF Referrals Follow up/Referrals: Santosh Villalta MD [Primary Care Provider] - See instructions Clinical Impressions Clinical Impression: Thoracic back pain, AAA (abdominal aortic aneurysm) without rupture, Acute shoulder pain Instructions Patient Instructions: DI for Acute Pain -- Adult Discharge ED Provider: Tyler Escobar General Adult HPI General Chief complaint: PAIN Stated complaint: Right arm pain, upper back pain Time Seen by Provider: 01/29/22 01:41 Mode of Arrival: Ambulatory Source of Information: Patient, Relative and Medical Record Limitations: No Limitations Description of Symptoms (Recalled from ER Triage Doc. by RN): Pt reports pain thats started this AM under her right shoulder blade that radiates down to her mid back now. She denies injury. Pain is reproducable. No visable rash present. History of Present Illness HPI narrative: atraumatic pain rt shoulder area and thoracic area this am - no fever/cough or rash Onset (ago): hour(s) Location: back and upper extremity Severity: moderate Quality: sharp Consistency: intermittent Associated symptoms: denies other symptoms Treatments prior to arrival: none Related Data Home Medications Medication Instructions Recorded Confirmed cholecalciferol (vitamin D3) 50 2,000 unit PO DAILY 06/06/19 06/06/19 mcg (2,000 unit) capsule folic acid 800 mcg tablet 0.8 mg PO DAILY 06/06/19 06/06/19 metoprolol succinate 100 mg 50 mg PO BID AFIB 06/06/19 06/06/19 tablet,extended release 24 hr omega-3 fatty acids 1,000 mg 1,000 mg PO BID 09/11/19 capsule (Fish Oil Concentrate) cetirizine 10 mg tablet (Zyrtec) 10 mg PO DAILY PRN 06/10/20 06/10/20 famotidine 20 mg tablet (Pepcid) 20 mg PO BID 06/10/20 06/10/20 fexofenadine 180 mg tablet 180 mg PO DAILY 06/10/20 06/10/20 (Kyung Allergy) ubrogepant 50 mg tablet (Ubrelvy) mg PO ONCE PRN 06/10/20 Previous Rx's Medication Instructions Recorded Plavix 75 mg tablet (clopidogrel) 75 mg PO DAILY #90 tabs 05/10/21 Allergies Allergy/AdvReac Type Severity Reaction Status Date / Time amoxicillin [AMOXICILLIN] Allergy Unknown NA-NAUSEA/V Verified 06/10/20 13:26 OMITING aspirin [ASPIRIN] Allergy Unknown HEART Verified 06/10/20 13:26 PAL/HEADACHES varenicline [From CHANTIX] Allergy Unknown NA-NAUSEA/V Verified 06/10/20 13:26 OMITING/HEA DACHES rosuvastatin [From Crestor] AdvReac Intermediate headache, Verified 06/10/20 13:26 all over body feeling bad RED DYE IN FLUID PILLS Allergy Intermediate I-HIVES Uncoded 06/10/20 13:26 GENERIC DRUGS AdvReac Unknown NA-NAUSEA/VOMITING, Uncoded 01/29/22 01:16 HEADACHE. HAS TO TAKE NAME BRAND DRUGS [facility] Medical History (Updated 01/29/22 @ 01:55 by Tyler Escobar MD) Anxiety Arrhythmia GERD (gastroesophageal reflux disease) Hypertension Knee pain Migraine Nausea & vomiting Social History Smoking Status: Current every day smoker tobacco type: cigarettes packs per day: 1 second hand exposure: Yes alcohol intake: never substance use type: denies use current occupational status: retired Travel in the last 8 weeks: Inside the [place] caffeine: No ROS Obtained: Yes All syste
[2022-01-29 02:01] VITALS: BP 117/75; PULSE 70; RESP 16; TEMP 36.7; O2SAT 98
== END 2022-01-29 02:03 | disposition home or self-care (01) ==
PROVIDERS: Emergency Provider Emergency Medicine; PCP Family Medicine
DX: I71.40 Abdominal aortic aneurysm, without rupture, unspecified (principal); M25.511 Pain in right shoulder; M54.6 Pain in thoracic spine; E78.5 Hyperlipidemia, unspecified; I25.10 Atherosclerotic heart disease of native coronary artery without angina pectoris; I65.29 Occlusion and stenosis of unspecified carotid artery; M10.9 Gout, unspecified; I48.91 Unspecified atrial fibrillation; G43.909 Migraine, unspecified, not intractable, without status migrainosus; K21.9 Gastro-esophageal reflux disease without esophagitis; I49.9 Cardiac arrhythmia, unspecified; I10 Essential (primary) hypertension
CPT/HCPCS: 71046; 74177; 80053; 84484; 85025; 96374; 99284; Q9967

== ENCOUNTER 2022-02-01 19:25 | Emergency (ER) | payer MEDICARE, OTHER, SELFPAY ==
[2022-02-01 19:37] VITALS: BP 117/75; PULSE 73; RESP 19; TEMP 36.6; O2SAT 98; BMI 22.6
--- NOTE | 2022-02-01 19:43 | EXP.UTC ---
Discharge Plan Disposition Patient Disposition: Home, Self-Care Condition: Good Prescriptions Prescriptions: No Action Ubrelvy 50 mg tablet PO ONCE PRN famotidine [Pepcid] 20 mg tablet 20 mg PO BID fexofenadine [Kyung Allergy] 180 mg tablet 180 mg PO DAILY cetirizine [Zyrtec] 10 mg tablet 10 mg PO DAILY PRN metoprolol succinate 100 mg tablet extended release 24 hr 50 mg PO BID folic acid 800 mcg tablet 0.8 mg PO DAILY cholecalciferol (vitamin D3) 50 mcg (2,000 unit) capsule 2,000 unit PO DAILY omega-3 fatty acids [Fish Oil Concentrate] 1,000 mg capsule 1,000 mg PO BID clopidogrel [Plavix] 75 mg tablet 75 mg PO DAILY Qty: 90 1RF Referrals Follow up/Referrals: Santosh Villalta MD [Primary Care Provider] - See instructions Activity Restrictions/Add. Instructions Additional Instructions/Restrictions: Follow up with Dr Villalta to discuss your pain medication Return if needed Heating pads may help There is over the counter patches like tiger balm that may help with pain Straight to ER if any life threatening symptoms Clinical Impressions Clinical Impression: Thoracic back pain Instructions Patient Instructions: DI for Chronic Pain -- Adult Discharge ED Provider: Rowena Gonzalez [facility] General Stated complaint: back pain Mode of Arrival: Ambulatory Time Seen by Provider: 02/01/22 19:43 Description of Symptoms (Recalled from Triage Doc. by RN): NECK, BACK AND SHOULDER PAIN HEENT Symptoms (Recalled from RN notes): No Resp Symptoms (Recalled from RN notes): No Skin Symptoms (Recalled from RN notes): No MS Symptoms (Recalled from RN notes): Yes Functional Status (Recalled from RN notes): NA History of Present Illness Provider Complaint: Patient states that she has been having neck, back and right shoulder pain States that she was seen in the ED a couple days ago States that they wanted to give her a steriod shot and she refused it States that she went to see her PCP today and they give her Loratab and was going to give her a steriod shot and they dc'd her and forgot to give it to her States that tonight she wanted to come in and get the shot to see if it would help her with her pain Related Data Home Medications Medication Instructions Recorded Confirmed cholecalciferol (vitamin D3) 50 2,000 unit PO DAILY 06/06/19 06/06/19 mcg (2,000 unit) capsule folic acid 800 mcg tablet 0.8 mg PO DAILY 06/06/19 06/06/19 metoprolol succinate 100 mg 50 mg PO BID AFIB 06/06/19 06/06/19 tablet,extended release 24 hr omega-3 fatty acids 1,000 mg 1,000 mg PO BID 09/11/19 capsule (Fish Oil Concentrate) cetirizine 10 mg tablet (Zyrtec) 10 mg PO DAILY PRN 06/10/20 06/10/20 famotidine 20 mg tablet (Pepcid) 20 mg PO BID 06/10/20 06/10/20 fexofenadine 180 mg tablet 180 mg PO DAILY 06/10/20 06/10/20 (Kyung Allergy) ubrogepant 50 mg tablet (Ubrelvy) mg PO ONCE PRN 06/10/20 Previous Rx's Medication Instructions Recorded Plavix 75 mg tablet (clopidogrel) 75 mg PO DAILY #90 tabs 05/10/21 Allergies Allergy/AdvReac Type Severity Reaction Status Date / Time amoxicillin [AMOXICILLIN] Allergy Unknown NA-NAUSEA/V Verified 06/10/20 13:26 OMITING aspirin [ASPIRIN] Allergy Unknown HEART Verified 06/10/20 13:26 PAL/HEADACHES varenicline [From CHANTIX] Allergy Unknown NA-NAUSEA/V Verified 06/10/20 13:26 OMITING/HEA DACHES rosuvastatin [From Crestor] AdvReac Intermediate headache, Verified 06/10/20 13:26 all over body feeling bad RED DYE IN FLUID PILLS Allergy Intermediate I-HIVES Uncoded 06/10/20 13:26 GENERIC DRUGS AdvReac Unknown NA-NAUSEA/VOMITING, Uncoded 01/29/22 01:16 HEADACHE. HAS TO TAKE NAME BRAND DRUGS Worker's Comp Is this a Worker's Comp case?: No [facility] Medical History (Updated 02/01/22 @ 20:04 by Rowena Gonzalez APRN) Anxiety Arrhythmia GERD (gastroesophageal reflux disease) Hypert
[2022-02-01 20:33] VITALS: BP 117/75; PULSE 73; RESP 19; TEMP 36.6; O2SAT 98
== END 2022-02-01 20:35 | disposition home or self-care (01) ==
PROVIDERS: Emergency Provider Nurse Practitioner; PCP Family Medicine
DX: M54.6 Pain in thoracic spine (principal)
CPT/HCPCS: 96372; 99212; G0463

== ENCOUNTER → 2022-04-11 10:44 | Outpatient (CLI) | payer MEDICARE, OTHER, SELFPAY ==
--- NOTE | 2022-04-11 11:11 | US_ITS ---
FINAL REPORT CLINICAL HISTORY: RUQ ABD PAIN,ABDOMINAL AORTIC ANEURYSM WITHOUT RUPTURE FINDINGS: Limited sonographic images were obtained of the abdomen to evaluate the abdominal aorta and iliac arteries. The abdominal aorta measures up to 4.0 cm in greatest dimension. The iliac arteries are within normal limits. IMPRESSION: 4 cm abdominal aortic aneurysm. This could be further evaluated with a CTA abdomen. Reviewed, Interpreted and Dictated by Jed Khoury III, MD Transcribed by Sheri Mcguire Authenticated and [facility]
== END ==
PROVIDERS: PCP Family Medicine; Visit Provider Nurse Practitioner Family
DX: R10.10 Upper abdominal pain, unspecified (principal); I71.40 Abdominal aortic aneurysm, without rupture, unspecified
CPT/HCPCS: 76770

== ENCOUNTER 2022-06-28 16:07 | Observation (INO) | payer MEDICARE, OTHER, SELFPAY ==
--- NOTE | 2022-06-28 | CA_ITS ---
APPROVED REPORT EXAM: Comprehensive 2D, Doppler, and color-flow Echocardiogram Coping Machine Assembler: Yudy Carlin RT(R) Ht: 5 ft 1 in Wt: 120lbs BSA: 1.52 BP: 117/75 mmHg Indications: unstable angina, CP, COPD, smoker, HTN, SOB, GERD, hx of TIA. 2D Dimensions Aortic Root 1.79 cm F: 2.7 - 3.3 LVEF (Martinez's) 60.00 % F: 54 - 74 LV Volume 49.70 mL F: 46 - 106 LV Volume Index 32.70 mL/m2 F: 29 - 61 LA Volume 14.20 mL LA Volume Index 9.34 mL/m2 (M/F) 16-34 M-Mode Dimensions RVDd 3.01 cm (0.9-2.6) LA Diam 3.03 cm (1.9-4.0) LVDd 4.02 cm (3.5-5.7) Ao Diam 2.39 cm (2.0-3.7) LVDs 3.15 cm (3.5-5.7) IVSd 1.07 cm (0.6-1.1) PWd 0.67 cm (0.6-1.1) EF (Teich) 44.40% FS 21.60% EDV (Teich) 70.80 mL ESV (Teich) 39.40 mL LV Diastology E Decel Time 197.00 (160-240 msec) E/A Ratio 1.0 MED E' 6.20 (< 7 cm/sec) E'/MED E' Ratio 13.92 (>14) LAT E' 11.00 (<10 cm/sec) E/LAT E' Ratio 7.85 (>14) Mitral Valve MV E Max Jeffeyr. 86.00 (40-130 cm/s) MV A Velocity 83.00 (40-130 cm/s) E/A Ratio 1.04 MV Decel. Time 197.00 (160-240 ms) MV PHT 58.00 ms Tricuspid Valve TR P. Velocity 247.00 cm/s RAP Estimate 10.00 mmHg RVSP 34.40 mmHg Left Ventricle Left atrium is mildly enlarged, left ventricle is normal size mild concentric left ventricular hypertrophy, estimated ejection fraction 55% with no regional wall motion abnormality, grade 2 diastolic dysfunction seen without tissue Doppler evidence of late left atrial pressure. Right Ventricle Right atrium and right ventricle are mildly enlarged with normal contractility. Aortic Valve Aortic valve is thickened and calcified without aortic stenosis or aortic insufficiency. Mitral Valve Mitral valve leaflets are minimally thickened, there is trace mitral regurgitation. Tricuspid Valve Tricuspid grossly normal, there is trace tricuspid regurgitation, tricuspid regurgitation jet velocity is inadequate for calculation of the right ventricular systolic pressure. Pulmonic Valve Pulmonic valve is poorly visualized. Great Vessels Aortic root is normal size. Inferior vena cava is normal size with normal inspiratory collapse. Pericardium No significant pericardial effusion noted. Conclusion 1. Mild biatrial enlargement, normal left ventricular size, mild concentric left ventricular hypertrophy, estimated ejection fraction 55% with no regional wall motion abnormality, grade 2 diastolic dysfunction seen without tissue Doppler evidence of late left atrial pressure. 2. Mildly enlarged right ventricle with normal contractility. 3. Trace mitral and tricuspid regurgitation. 4. No significant pericardial effusion noted. 5. Inferior vena cava is normal size with normal inspiratory collapse. Electronically signed by : Renny Gutierrez MD 06/29/2022 06:22:50
--- NOTE | 2022-06-28 | CA_ITS ---
FINAL REPORT TECHNIQUE: Color Doppler, duplex Doppler and eagle scale sonography of the bilateral neck arterial vasculature was performed. Velocities were measured in the carotid arteries. Stenosis evaluation based on the validated velocity criteria. CLINICAL HISTORY: angina, left carotid bruit, history of TIA's, smoker, HTN, hyperlipidemia. COMPARISON: none FINDINGS: The peak systolic velocity of the right common carotid artery is 46 cm/s. The peak systolic velocity of the right internal carotid artery is 109 cm/s and end diastolic velocity 25 cm/s. The ICA/CCA ratio is 2.35. A mild amount of plaque is present. The right external carotid artery is patent. The right vertebral artery is patent with antegrade flow. The peak systolic velocity of the left common carotid artery is 58 cm/s. The peak systolic velocity of the left internal carotid artery is 148 cm/s and end diastolic velocity 33 cm/s. The ICA/CCA ratio is 3.68. A mild amount of plaque is present. The left external carotid artery is patent.The left vertebral artery is patent with antegrade flow. IMPRESSION: Less than 50% bilateral carotid stenoses. Bilateral patent vertebral arteries with antegrade flow. If indicated, CTA or MRA could further evaluate. Reviewed, Interpreted and Dictated by Jed Khoury III, MD Transcribed by Naa Hernandez Authenticated and [facility]
--- NOTE | 2022-06-28 16:20 | PC.NURSE ---
arrived to floor by w/c from ED admissions
[2022-06-28 16:24] VITALS: BP 136/55; PULSE 67; RESP 18; TEMP 36.7; O2SAT 94; BMI 22.7
--- NOTE | 2022-06-28 16:48 | PC.NURSE ---
per angela, order 12 lead ekg stat. pt refused covid/flu swab
--- NOTE | 2022-06-28 16:51 | ECG_ITS ---
APPROVED REPORT Exam: Resting ECG HR:60 bpm ECG Measurements Heart Rate 60 AXES [place] 142 P 49 QRSd 89 QRS 26 QT 415 T 44 QTc 416 Conclusion SINUS RHYTHM SEPTAL MYOCARDIAL INFARCTION , OF INDETERMINATE AGE [40+ ms Q WAVE IN V1/V2] ABNORMAL ECG UNCONFIRMED REPORT Electronically signed by : Wilton Ramirez MD 06/28/2022 20:23:40
[2022-06-28 17:30] LABS: Basophils # 0.1 K/mm3 (0-0.2); Basophils % 0.8 % (0.1-2.0); Eosinophils # 0.1 K/mm3 (0.0-0.4); Eosinophils % 1.3 % (0.1-12.0); Hematocrit 40.2 % (37.0-47.0); Hemoglobin 13.1 g/dL (12.2-16.2); Lymphocytes # 2.7 K/mm3 (0.7-4.5); Lymphocytes % 30.4 % (10-50); Mean Corpuscular HGB Conc 32.5 g/dL (31.8-35.4); Mean Corpuscular Hemoglobin 31.3 pg (27.0-31.2); Mean Corpuscular Volume 96.2 fl (81-99); Mean Platelet Volume 9.2 fl (7.4-10.4); Monocytes # 0.4 K/mm3 (0.1-1.0); Monocytes % 5.1 % (1.7-9.3); Neutrophils # 5.4 K/mm3 (1.8-7.8); Neutrophils % 62.5 % (37.0-80.0); Platelet Count 156 K/mm3 (142-424); Red Blood Count 4.18 M/mm3 (4.20-5.40); Red Cell Distribution Width 12.9 % (11.5-17.5); White Blood Count 8.7 K/mm3 (4.8-10.8)
[2022-06-28 17:31] LABS: Chloride 102 mmol/L (98-107); Sodium 136 mmol/L (136-145)
[2022-06-28 17:32] LABS: Potassium 4.1 mmoL/L (3.5-5.1)
[2022-06-28 17:34] LABS: Alanine Aminotransferase 20 U/L (12-78); Albumin Level 4.3 g/dl (3.5-5.0); Albumin/Globulin Ratio 1.3 (1.1-1.8); Alkaline Phosphatase 99 U/L (38-126); Anion Gap 9.1 mEq/L (5-15); Aspartate Amino Transferase 41 U/L (14-36); Bilirubin,Total 0.8 mg/dl (0.2-1.3); Blood Urea Nitrogen 9 mg/dl (7-17); Carbon Dioxide 29 mmol/L (22.0-30.0); Creatinine Clearance Estimated 42 mL/min (50-200); Estimated Glomerular Filt Rate 97 ml/min (>60); GFR (African American) 118 ML/MIN (>60); Globulin 3.3 g/dL (1.3-3.2); Glucose 76 mg/dl (74-100); Total Protein,Serum 7.6 g/dl (6.3-8.2)
[2022-06-28 17:44] LABS: NT Pro Brain Natriuretic Pep. 111 pg/mL (0-450)
[2022-06-28 17:48] LABS: Troponin I < 0.01 ng/ml (0.00-0.034)
--- NOTE | 2022-06-28 18:23 | PC.NURSE ---
pt does not know any of home meds, she only knows shes on plavix, stomach pill, heart pill pt does not have a list, pharm will verify in the am. pt alert x4, no skin issues noted. pt has been c/o lt chest pain that radiates down her arm, pt has no pain or discomfort at this time. pt is a 1ppd smoker for 60 years. pt states she has home o2 that she uses as need, 2l nc. states she does not use it too often . per antonina, order metoprolol 50mg BID, pepcid 20mg daily, apply SCUDS. lungs coa, NSR on tele. pt has a lt carotid bruit. dr miller rounded on pt, npo after midnight, ice chips only, for heart cath 06/29.
[2022-06-28 18:31] VITALS: PULSE 65
[2022-06-28 19:44] VITALS: BP 107/60; PULSE 68; RESP 17; TEMP 36.9; O2SAT 91
--- NOTE | 2022-06-28 20:18 | EXP.HP ---
History of Present Illness *Admission Date: 06/28/22 *Reason for visit:: Weakness and chest pressure *History of present illness: 76-year-old female with history of atrial dysrhythmias, coronary atherosclerosis and cerebrovascular disease. I have a record deficit and patient is not a quality historian but presented to the office today with a chief complaint of weakness when my pulse rate goes up and I have palpitations. On further questioning she noted that when she feels bad she thinks her heart rate is going up and it makes her weak, but also reported that over the past couple of days she had increasing chest pressure along with shortness of air and she points to an area underneath her left breast that she feels pressure in. She also notes the pressure radiates down the left arm into her elbow. It resolves after heart rate slows down. In the office she was found to have sinus rhythm on EKG but did have poor R wave progression and some J-point elevation in the septal leads and was admitted to hospital for cardiac consultation given her clinical picture of accelerating angina. [facility] Disclaimer: The information contained in this section may have been updated after the patient was seen, as this information can be updated by other users. Medical History (Updated 06/28/22 @ 20:20 by Wilton Ramirez MD) Anxiety Arrhythmia GERD (gastroesophageal reflux disease) Hypertension Knee pain Migraine Nausea & vomiting Family History (Updated 06/28/22 @ 17:34 by Susu Montes RN) Family history of cancer Family history of myocardial infarction Social History Smoking Status: Current every day smoker tobacco type: cigarettes packs per day: 1 second hand exposure: Yes alcohol intake: never substance use type: denies use current occupational status: retired Travel in the last 8 weeks: Inside the [place] caffeine: No Review of Systems Review of Systems Review of systems:: pertinent systems reviewed and negative unless documented below Meds Home Medications and Allergies Home Medications Medication Instructions Recorded Confirmed Type cholecalciferol (vitamin D3) 50 2,000 unit PO DAILY 06/06/19 06/06/19 History mcg (2,000 unit) capsule folic acid 800 mcg tablet 0.8 mg PO DAILY 06/06/19 06/06/19 History metoprolol succinate 100 mg 50 mg PO BID AFIB 06/06/19 06/06/19 History tablet,extended release 24 hr omega-3 fatty acids 1,000 mg 1,000 mg PO BID 09/11/19 History capsule (Fish Oil Concentrate) cetirizine 10 mg tablet (Zyrtec) 10 mg PO DAILY PRN 06/10/20 06/10/20 History famotidine 20 mg tablet (Pepcid) 20 mg PO BID 06/10/20 06/10/20 History fexofenadine 180 mg tablet 180 mg PO DAILY 06/10/20 06/10/20 History (Kyung Allergy) ubrogepant 50 mg tablet (Ubrelvy) mg PO ONCE PRN 06/10/20 History Plavix 75 mg tablet (clopidogrel) 75 mg PO DAILY #90 tabs 05/10/21 Rx New Prescriptions to Start Prescriptions: Allergies Allergy/AdvReac Type Severity Reaction Status Date / Time amoxicillin [AMOXICILLIN] Allergy Unknown NA-NAUSEA/V Verified 06/10/20 13:26 OMITING aspirin [ASPIRIN] Allergy Unknown HEART Verified 06/10/20 13:26 PAL/HEADACHES varenicline [From CHANTIX] Allergy Unknown NA-NAUSEA/V Verified 06/10/20 13:26 OMITING/HEA DACHES rosuvastatin [From Crestor] AdvReac Intermediate headache, Verified 06/10/20 13:26 all over body feeling bad RED DYE IN FLUID PILLS Allergy Intermediate I-HIVES Uncoded 06/10/20 13:26 GENERIC DRUGS AdvReac Unknown NA-NAUSEA/VOMITING, Uncoded 01/29/22 01:16 HEADACHE. HAS TO TAKE NAME BRAND DRUGS Exam Data for Last 24 hours Vital signs and Labs for Last 24 Hours: Temp Pulse Resp BP Pulse Ox 98.4 F 68 17 107/60 L 91 L 06/28/22 19:44 06/28/22 19:44 06/28/22 19:44 06/28/22 19:44 06/28/22 19:44 Laboratory Results - last 24 hr 06/28/22 17:06: WBC 8.7, RBC 4.18 L, Hgb 13.1, Hct
--- NOTE | 2022-06-28 22:23 | PC.NURSE ---
1999 PATIENT STATES SHE IS LEAVING TO GO HOME. DOES NOT WANT CARDIAC CATH. SAYS SHE HAS HER SETTLEMENT AGENT IN [place] AND WILL FOLLOW UP WITH HIM. AT 2004 DR PATEL NOTIFIED OF PATIENT WANTING TO SIGN OUT AMA. REVIEWED WITH PATIENT THE POSSIBLE OUTCOMES OF HER REFUSING TREATMENT INCLUDING , MS ETC... AMA SIGNED AT 2029, AT 2141 IV DISCONTINUED AND PATIENT DISCHARGED HOME AMA VIA W/C ACCOMPANIED BY DAUGHTER AND 3 OTHER FAMILY MEMBERS TO PERSONAL VEHICLE WITH ALL PERSONAL BELONGINGS.
--- NOTE | 2022-06-30 08:42 | EXP.DC.SUM ---
General Admission date:: 06/28/22 Discharge date: 06/28/22 HPI HPI HPI: 76-year-old female with history of atrial dysrhythmias, coronary atherosclerosis and cerebrovascular disease. I have a record deficit and patient is not a quality historian but presented to the office today with a chief complaint of weakness when my pulse rate goes up and I have palpitations. On further questioning she noted that when she feels bad she thinks her heart rate is going up and it makes her weak, but also reported that over the past couple of days she had increasing chest pressure along with shortness of air and she points to an area underneath her left breast that she feels pressure in. She also notes the pressure radiates down the left arm into her elbow. It resolves after heart rate slows down. In the office she was found to have sinus rhythm on EKG but did have poor R wave progression and some J-point elevation in the septal leads and was admitted to hospital for cardiac consultation given her clinical picture of accelerating angina. Hospital Course Hospital Course Hospital Course: Patient was admitted with unstable angina, placed on telemetry. Cardiology was consulted, appreciate input, they saw patient immediately after admission, recommended monitoring throughout the night given high likelihood of unstable angina and recommended left heart cath the following morning. About 3 hours after admission patient told nursing staff that she did not want to stay because I have my own cardiology people she was advised of the risk of leaving but decided to do so anyway and left AGAINST MEDICAL ADVICE. As a result no prescriptions or follow-up appointments were able to be made. Exam Data for Last 24 hours Vital signs and Labs for Last 24 Hours: Temp Pulse Resp BP Pulse Ox 98.4 F 68 17 107/60 L 91 L 06/28/22 19:44 06/28/22 19:44 06/28/22 19:44 06/28/22 19:44 06/28/22 19:44 I & O for Last 24 hours: Intake & Output 06/27/22 06/28/22 06/29/22 06/30/22 11:59 11:59 11:59 11:59 Intake Total 0 / 0 Balance 0 / 0 Weight 120 lb 6 oz Constitutional Constitutional: no acute distress *Routine HEENT Exam Head: Present normocephalic Eye: Present EOMI and PERRL ENT: Present mucous membranes moist *Routine Neck Exam Neck: Present supple; Absent lymphadenopathy *Routine Respiratory Exam Respiratory: Present CTA bilaterally *Routine Cardiovascular Exam Cardiovascular: Present RRR *Routine Abdominal Exam Abdominal: Present soft and normoactive bowel sounds; Absent tenderness *Routine Extremities Exam Extremities: Absent cyanosis, clubbing or edema *Routine Skin Exam Skin: Present warm; Absent rash *Routine Neurological Exam Neurological: Present alert and oriented X3 DS: Diagnosis Discharge Diagnosis (1) Angina of effort: Status: Acute Meds Home Medications and Allergies Home Medications Medication Instructions Recorded Confirmed Type cholecalciferol (vitamin D3) 50 2,000 unit PO DAILY 06/06/19 06/06/19 History mcg (2,000 unit) capsule folic acid 800 mcg tablet 0.8 mg PO DAILY 06/06/19 06/06/19 History metoprolol succinate 100 mg 50 mg PO BID AFIB 06/06/19 06/06/19 History tablet,extended release 24 hr omega-3 fatty acids 1,000 mg 1,000 mg PO BID 09/11/19 History capsule (Fish Oil Concentrate) cetirizine 10 mg tablet (Zyrtec) 10 mg PO DAILY PRN 06/10/20 06/10/20 History famotidine 20 mg tablet (Pepcid) 20 mg PO BID 06/10/20 06/10/20 History fexofenadine 180 mg tablet 180 mg PO DAILY 06/10/20 06/10/20 History (Kyung Allergy) ubrogepant 50 mg tablet (Ubrelvy) mg PO ONCE PRN 06/10/20 History Plavix 75 mg tablet (clopidogrel) 75 mg PO DAILY #90 tabs 05/10/21 Rx New Prescriptions to Start Prescriptions: Allergies Allergy/AdvReac Type Severity Reaction Status Date / Time amoxicillin [AMOXICILLIN] Allergy Unknown NA-NAUSEA/V Verified 06/10/20 13:26 OMITING aspirin [ASPIRIN] A
== END 2022-06-28 21:36 | disposition left against medical advice (07) ==
PROVIDERS: Admitting Provider Internal Medicine Adolescent Medicine; PCP Internal Medicine Adolescent Medicine; Visit Provider Internal Medicine Adolescent Medicine
DX: I25.110 Atherosclerotic heart disease of native coronary artery with unstable angina pectoris (principal); I65.23 Occlusion and stenosis of bilateral carotid arteries; Z79.899 Other long term (current) drug therapy; F17.210 Nicotine dependence, cigarettes, uncomplicated; I10 Essential (primary) hypertension
CPT/HCPCS: G0378; G0379; 80053; 83880; 84484; 85025; 93005; 93306; 93880

== ENCOUNTER → 2022-09-19 16:59 | Outpatient (CLI) | payer MEDICARE, OTHER, SELFPAY ==
[2022-09-19 17:28] LABS: Basophils # 0.1 K/mm3 (0-0.2); Basophils % 0.6 % (0.1-2.0); Eosinophils # 0.2 K/mm3 (0.0-0.4); Eosinophils % 1.8 % (0.1-12.0); Hematocrit 42.7 % (37.0-47.0); Hemoglobin 13.8 g/dL (12.2-16.2); Lymphocytes # 3.1 K/mm3 (0.7-4.5); Lymphocytes % 34.6 % (10-50); Mean Corpuscular HGB Conc 32.3 g/dL (31.8-35.4); Mean Corpuscular Hemoglobin 31.4 pg (27.0-31.2); Mean Corpuscular Volume 97.2 fl (81-99); Mean Platelet Volume 7.6 fl (7.4-10.4); Monocytes # 0.5 K/mm3 (0.1-1.0); Monocytes % 5.2 % (1.7-9.3); Neutrophils # 5.2 K/mm3 (1.8-7.8); Neutrophils % 57.8 % (37.0-80.0); Platelet Count 182 K/mm3 (142-424); Red Blood Count 4.39 M/mm3 (4.20-5.40); Red Cell Distribution Width 12.6 % (11.5-17.5)
[2022-09-19 18:49] LABS: Alanine Aminotransferase 27 U/L (12-78); Albumin Level 4.5 g/dl (3.5-5.0); Albumin/Globulin Ratio 1.4 (1.1-1.8); Alkaline Phosphatase 135 U/L (38-126); Anion Gap 14.6 mEq/L (5-15); Aspartate Amino Transferase 46 U/L (14-36); Bilirubin,Total 0.6 mg/dl (0.2-1.3); Blood Urea Nitrogen 12 mg/dl (7-17); Calcium 9.8 mg/dl (8.4-10.2); Carbon Dioxide 31 mmol/L (22.0-30.0); Chloride 99 mmol/L (98-107); Chol/HDL Ratio 3.2 (1-3.5); Cholesterol 181 mg/dl (140-200); Estimated Glomerular Filt Rate 97 ml/min (>60); GFR (African American) 118 ML/MIN (>60); Globulin 3.3 g/dL (1.3-3.2); Glucose 92 mg/dl (74-100); HDL Cholesterol 57 mg/dl (40-60); Potassium 4.6 mmoL/L (3.5-5.1); Sodium 140 mmol/L (136-145); Total Protein,Serum 7.8 g/dl (6.3-8.2); Triglycerides 253 mg/dl (30-150); VLDL Cholesterol 51 mg/dL (0-40)
[2022-09-19 18:59] LABS: Direct LDL Cholesterol 74.64 mg/dL (100-129)
[2022-09-19 19:20] LABS: Thyroid Stimulating Hormone 2.21 uIU/mL (0.465-4.68)
[2022-09-19 20:03] LABS: Hemoglobin A1C 5.4 % (4.0-6.0)
== END ==
PROVIDERS: PCP Internal Medicine Adolescent Medicine; Visit Provider Internal Medicine Adolescent Medicine
DX: I67.9 Cerebrovascular disease, unspecified (principal); R73.9 Hyperglycemia, unspecified; I10 Essential (primary) hypertension; Z79.899 Other long term (current) drug therapy
CPT/HCPCS: 36415; 80053; 80061; 83036; 84443; 85025

== ENCOUNTER 2023-06-15 14:21 | Emergency (ER) | payer MEDICARE, OTHER, SELFPAY ==
[2023-06-15 14:22] VITALS: BP 137/74; PULSE 94; RESP 18; TEMP 36.5; O2SAT 96; BMI 23.0
[2023-06-15 14:30] VITALS: BP 131/66; BP 152/64; PULSE 84; PULSE 98; RESP 21; O2SAT 22; O2SAT 95
--- NOTE | 2023-06-15 14:33 | ECG_ITS ---
APPROVED REPORT Exam: Resting ECG HR:89 bpm ECG Measurements Heart Rate 89 AXES [place] 122 P 69 QRSd 75 QRS 46 QT 329 T 70 QTc 376 Conclusion SINUS RHYTHM NORMAL ECG UNCONFIRMED REPORT Electronically signed by : KELSEA GALLARDO, 06/15/2023 17:08:44
--- NOTE | 2023-06-15 14:48 | XR_ITS ---
FINAL REPORT CLINICAL HISTORY: hyponatremia, weakness COMPARISON: 06/13/2019 FINDINGS: PA and lateral views of the chest were obtained. The cardiac and mediastinal silhouettes are within normal limits. There are new bilateral mixed interstitial and alveolar opacities which are slightly worse at the lung bases, could represent mild edema versus pneumonia. There is no pleural effusion or pneumothorax. No acute osseous abnormality is identified. IMPRESSION: Mild edema versus pneumonia. Recommend continued follow-up. Reviewed, Interpreted and Dictated by Claire Messina MD Transcribed by Luda Oglesby Authenticated and [facility]
--- NOTE | 2023-06-15 14:51 | PC.NURSE ---
DR DENSON AT BEDSIDE
[2023-06-15 14:57] LABS: Basophils # 0.1 K/mm3 (0-0.2); Basophils % 0.8 % (0.1-2.0); Eosinophils # 0.1 K/mm3 (0.0-0.4); Eosinophils % 0.5 % (0.1-12.0); Hematocrit 44.4 % (37.0-47.0); Hemoglobin 14.6 g/dL (12.2-16.2); Lymphocytes # 1.3 K/mm3 (0.7-4.5); Lymphocytes % 14.4 % (10-50); Mean Corpuscular HGB Conc 32.9 g/dL (31.8-35.4); Mean Corpuscular Hemoglobin 32.7 pg (27.0-31.2); Mean Corpuscular Volume 99.5 fl (81-99); Mean Platelet Volume 8.5 fl (7.4-10.4); Monocytes # 0.4 K/mm3 (0.1-1.0); Monocytes % 4.2 % (1.7-9.3); Neutrophils # 7.2 K/mm3 (1.8-7.8); Neutrophils % 80.2 % (37.0-80.0); Platelet Count 197 K/mm3 (142-424); Red Blood Count 4.46 M/mm3 (4.20-5.40); Red Cell Distribution Width 12.8 % (11.5-17.5); White Blood Count 8.9 K/mm3 (4.8-10.8)
--- NOTE | 2023-06-15 15:00 | PC.NURSE ---
PT TO XR
[2023-06-15 15:02] LABS: Alanine Aminotransferase 28 U/L (12-78); Albumin Level 4.4 g/dl (3.5-5.0); Albumin/Globulin Ratio 1.2 (1.1-1.8); Alkaline Phosphatase 125 U/L (38-126); Anion Gap 11.2 mEq/L (5-15); Aspartate Amino Transferase 42 U/L (14-36); Bilirubin,Total 0.8 mg/dl (0.2-1.3); Blood Urea Nitrogen 9 mg/dl (7-17); Calcium 9.6 mg/dl (8.4-10.2); Carbon Dioxide 26 mmol/L (22.0-30.0); Chloride 102 mmol/L (98-107); Creatinine Clearance Estimated 42 mL/min (50-200); Estimated Glomerular Filt Rate 97 ml/min (>60); GFR (African American) 118 ML/MIN (>60); Globulin 3.6 g/dL (1.3-3.2); Glucose 123 mg/dl (74-100); Potassium 4.2 mmoL/L (3.5-5.1); Sodium 135 mmol/L (136-145)
[2023-06-15 15:15] LABS: NT Pro Brain Natriuretic Pep. 24.6 pg/mL (0-450)
[2023-06-15 15:16] LABS: Troponin I < 0.01 ng/ml (0.00-0.034)
[2023-06-15 15:19] LABS: T4 (Thyroxine) 11.7 ug/dl (5.53-11.0)
--- NOTE | 2023-06-15 15:21 | ED_ITS ---
Discharge Plan Disposition Patient Disposition: Home, Self-Care Prescriptions Prescriptions: New cefdinir 300 mg capsule 300 mg PO BID 7 Days Qty: 14 0RF No Action Ubrelvy 50 mg tablet PO ONCE PRN fexofenadine [Kyung Allergy] 180 mg tablet 180 mg PO DAILY cetirizine [Zyrtec] 10 mg tablet 10 mg PO DAILY PRN folic acid 800 mcg tablet 0.8 mg PO DAILY cholecalciferol (vitamin D3) 50 mcg (2,000 unit) capsule 2,000 unit PO DAILY omega-3 fatty acids [Fish Oil Concentrate] 1,000 mg capsule 1,000 mg PO BID diazepam 5 mg tablet 5 mg PO HS PRN esomeprazole magnesium 40 mg capsule,delayed release(DR/EC) 40 mg PO DAILY clopidogrel [Plavix] 75 mg tablet 75 mg PO DAILY Qty: 90 1RF Referrals Follow up/Referrals: Santosh Villalta MD [Primary Care Provider] - See instructions Activity Restrictions/Add. Instructions Additional Instructions/Restrictions: Call your family doctor to establish care for this visit to the emergency department and schedule follow-up within 48 hours to ensure improvement. If you have any worsening of your condition or any other concerning signs or symptoms, return to the emergency department or your primary care doctor for further evaluation. Clinical Impressions Clinical Impression: Pneumonia, Acute dehydration Discharge ED Provider: Jerome Light General Adult HPI General Chief complaint: Recheck/Abnormal Lab/Rx Stated complaint: sodium levels low Time Seen by Provider: 06/15/23 14:47 Mode of Arrival: Ambulatory Source of Information: Patient Limitations: No Limitations Description of Symptoms (Recalled from ER Triage Doc. by RN): Patient ambulatory to ED. She was sent to the ED per Dr. Silver office for abnormal lab work. Patient was seen at Dr. Silver office yesterday for lightheadedness, nausea, and confusion. Labwork was drawn, and patient was noted to have Na+ of 115. She was contacter by PCP office and instructed to come to ED to be seen History of Present Illness HPI narrative: 77-year-old female history of hypertension, hyperlipidemia, paroxysmal A-fib on Plavix, AAA 4 cm, COPD with current smoking 1 pack/day presenting intermittent confusion, fatigue, reported sodium of 115 at patient's primary care physician's office. Patient states that these been going on for couple of weeks. She saw her doctor and stretcher leveler operator helper within the last week. States that she had labs drawn and her sodium was low at 113 or 115. States that she has not had s eizures, vomiting, hallucinations, syncopal episodes, diarrhea or constipation, or any other abnormal findings. Denies unilateral weakness, chest pain, shortness of breath. She states that intermittently she feels lightheaded, has nausea without vomiting. She states that she had 1 episode about a week ago where she was driving, felt confused and had to cable puller. She states that she cried until she realized what she was doing and was able to drive home without issue. Has not had any episodes of confusion since. Related Data Home Medications Medication Instructions Recorded Confirmed cholecalciferol (vitamin D3) 50 2,000 unit PO DAILY 06/06/19 06/05/23 mcg (2,000 unit) capsule folic acid 800 mcg tablet 0.8 mg PO DAILY 06/06/19 06/05/23 omega-3 fatty acids 1,000 mg 1,000 mg PO BID 09/11/19 06/05/23 capsule (Fish Oil Concentrate) cetirizine 10 mg tablet (Zyrtec) 10 mg PO DAILY PRN 06/10/20 06/05/23 fexofenadine 180 mg tablet 180 mg PO DAILY 06/10/20 06/05/23 (Kyung Allergy) ubrogepant 50 mg tablet (Ubrelvy) mg PO ONCE PRN 06/10/20 06/05/23 diazepam 5 mg tablet 5 mg PO HS PRN 06/05/23 06/05/23 esomeprazole magnesium 40 mg 40 mg PO DAILY 06/05/23 06/05/23 capsule,delayed release Previous Rx's Medication Instructions Recorded Plavix 75 mg tablet (clopidogrel) 75 mg PO DAILY #90 tabs 05/10/21 cefdinir 300 mg capsule 300 mg PO BID 7 days #14 caps 06/15/23 Allergies Allergy/AdvReac Type Severity Reaction Status Date / Time amoxicillin [AMOXICILLIN] Allergy Unknown NA-NAUSEA/V Verified 06/10/20 13:26 OMITING aspirin [ASPIRIN] Allergy Unknown HEART Verified 06/10/20 13:26 PAL/HEADACHES varenicline [From CHANTIX] Allergy Unknown NA-NAUSEA/V Verified 06/10/20 13:26 OMITING/HEA DACHES red dye Allergy Unknown Verified 09/27/22 14:21 allergy reaction rosuvastatin [From Crestor] AdvReac Intermediate headache, Verified 06/10/20 13:26 all over body feeling bad [facility] Disclaimer: The information contained in this section may have been updated after the patient was seen, as this information can be updated by other users. Medical History Anxiety Arrhythmia GERD (gastroesophageal reflux disease) Hypertension Knee pain Migraine Nausea & vomiting Family History Other Family history of cancer Family history of myocardial infarction Social History Smoking Status: Current every day smoker tobacco type: cigarettes packs per day: 1 second hand exposure: Yes alcohol intake: never substance use type: denies use current occupational status: retired Travel in the last 8 weeks: Inside the [place] caffeine: No ROS Obtained: Yes All systems reviewed & no additional complaints except as documented Physical Exam General General appearance: alert and in no apparent distress Head Head exam: atraumatic and normocephalic Eye Eye exam: Present normal appearance, PERRL and EOMI ENT ENT exam: Present mucous membranes moist Neck Neck exam: Present normal inspection, full ROM and trachea midline Respiratory Respiratory exam: Present normal lung sounds bilaterally; Absent respiratory distress, wheezes, stridor, accessory muscle use or prolonged expiratory phase Cardiovascular Cardiovascular exam: Present regular rate, normal rhythm and normal heart sounds Abdominal Exam Abdominal exam: Present soft; Absent distention, tenderness, guarding, rebound or rigidity Extremities Exam Extremities exam: Absent edema Neurological Exam Neurological exam: Present alert, oriented X3, CN II-XII intact and normal gait; Absent motor sensory deficit Skin Skin exam: Present warm and dry; Absent diaphoresis or erythema Medical Decision Making Medical Records Medical records reviewed: Yes I reviewed the patient's medical records. Lai Inquiry Pt receiving controlled substance: No Lai was queried for this patient: No Vital Signs: 06/15/23 14:22 06/15/23 14:30 06/15/23 15:33 Temperature 97.7 F Temperature Source Oral Pulse Rate 98 H 88 Pulse Rate [Right] 94 H Respiratory Rate 18 18 Blood Pressure 152/64 H 118/99 H Blood Pressure [Right Arm] 137/74 Blood Pressure Mean [Right Arm] 95 Blood Pressure Source [Right Arm] Automatic Cuff 02 Sat by Pulse Oximetry 96 95 94 L Oxygen Delivery Method Room Air Room Air Room Air 06/15/23 16:00 Temperature Temperature Source Pulse Rate 86 Pulse Rate [Right] Respiratory Rate 20 Blood Pressure 131/66 Blood Pressure [Right Arm] Blood Pressure Mean [Right Arm] Blood Pressure Source [Right Arm] 02 Sat by Pulse Oximetry 94 L Oxygen Delivery Method Room Air Lab Data Lab Results 06/15/23 14:40: WBC 8.9, RBC 4.46, Hgb 14.6, Hct 44.4, MCV 99.5 H, MCH 32.7 H, MCHC 32.9, RDW 12.8, Plt Count 197, MPV 8.5, Neut % (Auto) 80.2 H, Lymph % (Auto) 14.4, [place] % (Auto) 4.2, Eos % (Auto) 0.5, Baso % (Auto) 0.8, Neut # (Auto) 7.2, Lymph # (Auto) 1.3, [place] # (Auto) 0.4, Eos # (Auto) 0.1, Baso # (Auto) 0.1, Sodium 135 L, Potassium 4.2, Chloride 102, Carbon Dioxide 26, Anion Gap 11.2, BUN 9, Creatinine 0.60, Estimated Creat Clear 42, Estimated GFR 97, Est GFR ( Amer) 118, Glucose 123 H, Calcium 9.6, Total Bilirubin 0.8, AST 42 H, ALT 28, Alkaline Phosphatase 125, Troponin I < 0.01, NT-Pro-B Natriuret Pep 24.6, Total Protein 8.0, Albumin 4.4, Globulin 3.6 H, Albumin/Globulin Ratio 1.2, Thyroxine (T4) 11.7 H 06/15/23 15:20: Urine Color Yellow, Urine Appearance Clear, Urine pH 7.0, Ur Specific [place] 1.010, Urine Protein Negative, Urine Glucose (UA) Negative, Urine Ketones Negative, Urine Blood Negative, Urine Nitrate Negative, Urine Bilirubin Negative, Urine Urobilinogen 1.0, Ur Leukocyte Esterase Negative, Urine RBC None, Urine WBC None, Ur Squamous Epith Cells 3-5, Urine Bacteria None 06/15/23 15:32: VBG pH 7.42 H, VBG pCO2 37.7, VBG pO2 81.3 H, VBG HCO3 24.1, VBG Total CO2 25.3, VBG O2 Saturation 96.5 H, VBG Base Excess -0.3, VBG Lactic Acid 2.6 H 06/15/23 14:40 06/15/23 14:40 Orders (Tests/Meds): ORDERS Category Date Time Status CXR 2 view (NOT portable) [XR chest 2V] Stat Exams 06/15/23 14:48 Completed Brain Natriuretic Peptide Stat Lab 06/15/23 14:40 Results Complete Blood Count Auto Diff Stat Lab 06/15/23 14:40 Completed Comprehensive Metabolic Panel Stat Lab 06/15/23 14:40 Results Lactate Venous Stat Lab 06/15/23 15:32 Completed Osmolality Stat Lab 06/15/23 14:40 Received T4 (Thyroxine) Stat Lab 06/15/23 14:40 Results TSH [Thyroid Stimulating Hormone] Stat Lab 06/15/23 14:40 Results Troponin I Q3H Lab 06/15/23 18:00 Ordered Troponin I Q3H Lab 06/15/23 21:00 Ordered Troponin I Stat Lab 06/15/23 14:40 Results Urinalysis and Microscopic Stat Lab 06/15/23 15:20 Completed VBG [Venous Blood Gas] Stat RT 06/15/23 15:32 Completed Medical Decision Narrative: 77-year-old female history of hypertension, hyperlipidemia, paroxysmal A-fib on Plavix, AAA 4 cm, COPD with current smoking 1 pack/day presenting intermittent confusion, fatigue, reported sodium of 115 at patient's primary care physician's office. Patient states that these been going on for couple of weeks. She saw her doctor and stretcher leveler operator helper within the last week. States that she had labs drawn and her sodium was low at 113 or 115. States that she has not had seizures, vomiting, hallucinations, syncopal episodes, diarrhea or constipation, or any other abnormal findings. Denies unilateral weakness, chest pain, shortness of breath. She states that intermittently she feels lightheaded, has nausea without vomiting. She states that she had 1 episode about a week ago wh ere she was driving, felt confused and had to cable puller. She states that she cried until she realized what she was doing and was able to drive home without issue. Has not had any episodes of confusion since. istory was obtained via conversation with patient. On arrival, patient hemodynamically stable, alert, oriented x4, appropriate, GCS 15, moving all extremities spontaneously, pupils equal and reactive to light. Full physical exam performed and significant for well-appearing woman in no a cute distress. Neurologically intact and NIHSS 0. Cardiac exam within normal limits, lungs clear to auscultation bilaterally without focal findings. Overall very well-appearing woman. Differential includes metabolic abnormality, lab draw error, arrhythmia, dehydration, malignancy, pneumothorax, ACS, IL, medication side effect, among others Patient was given fluid bolus for symptomatic management and correction of underlying abnormalities. Workup independently interpreted and significant for Normal white count. Nonactionable CBC overall. VBG with mild alkalosis, VBG lactate mildly elevated at 2.6. Kidney function normal, sodium 135, LFTs normal, troponin normal, BNP negative. T4 mildly elevated at 11.7, but nonactionable overall. Urinalysis negative. Chest x-ray with haziness in right lower lobe concerning for developing pneumonia. See radiology read for full review of final results. Independent interpretation of EKG shows sinus rhythm 89 beats a minute with no ST or T wave changes concerning for acute ischemia. MN, QRS, QT intervals within normal limits. [place] normal. On reevaluation, Patient resting comfortably in bed opting to leave, I feel this is appropriate. Given patient presentation, workup, history, this most likely represents mild dehydration in the setting of early pneumonia. Because patient at baseline without signs or symptoms of clinical decompensation, deemed appropriate for discharge. Results were relayed to patient who voiced understanding and were agreeable to outpatient management and follow up. At the time of discharge the patient was hemodynamically stable, tolerating PO, and mobilizing appropriately. Critical Care Critical Care Time Critical Care Time: No
[2023-06-15 15:30] LABS: Microscopic, Urine URINE MICROSCOPIC (MICROSCOPIC)
[2023-06-15 15:33] VITALS: BP 118/99; PULSE 88; RESP 18; O2SAT 94
[2023-06-15 15:33] LABS: Thyroid Stimulating Hormone 0.96 uIU/mL (0.465-4.68)
[2023-06-15 15:36] LABS: VBG Base Excess -0.3 mmol/L (-2.4-2.3); VBG HCO3 24.1 mmol/L (23-30); VBG Oxygen Saturation 96.5 % (50-70); VBG PCO2 37.7 mmol/L (35-51); VBG PH 7.42 mmol/L (7.31-7.41); VBG PO2 81.3 mmol/L (28-40); VBG Total CO2 25.3 mmol/L (23-27)
[2023-06-15 15:39] LABS: Lactate Venous 2.6 mmol/L (0.4-2.0)
[2023-06-15 15:48] LABS: Appearance,Urine CLEAR (Clear); Bilirubin,Urine Negative (Negative); Blood, Urine Negative (Negative); Color,Urine YELLOW (Yellow); Glucose,Urine (UA) Negative (Negative); Ketones,Urine Negative (Negative); Leukocyte Esterase,Urine Negative (Negative); Nitrate,Urine Negative (Negative); Protein,Urine Negative (Negative)
[2023-06-15 16:00] VITALS: BP 131/66; PULSE 86; RESP 20; O2SAT 94
--- NOTE | 2023-06-15 16:09 | PC.NURSE ---
PT AMBULATING IN [place]
--- NOTE | 2023-06-15 16:20 | PC.NURSE ---
Dr Light at BS
[2023-06-15 16:38] VITALS: BP 132/61; PULSE 80; RESP 18; TEMP 36.7; O2SAT 92
== END 2023-06-15 16:39 | disposition home or self-care (01) ==
PROVIDERS: Emergency Provider Emergency Medicine; PCP Family Medicine
DX: J18.9 Pneumonia, unspecified organism (principal); E86.0 Dehydration; I10 Essential (primary) hypertension; E78.5 Hyperlipidemia, unspecified; I48.0 Paroxysmal atrial fibrillation; I71.40 Abdominal aortic aneurysm, without rupture, unspecified; J44.9 Chronic obstructive pulmonary disease, unspecified; F17.210 Nicotine dependence, cigarettes, uncomplicated
CPT/HCPCS: 71046; 80053; 81001; 82803; 83605; 83880; 83930; 84436; 84443; 84484; 85025; 93005; 99285

== ENCOUNTER 2023-06-21 11:42 | Outpatient (CLI) | payer MEDICARE, OTHER, SELFPAY ==
--- NOTE | 2023-06-21 11:48 | XR_ITS ---
FINAL REPORT CLINICAL HISTORY: neck pain, head tremor, N/T COMPARISON: None FINDINGS: CERVICAL SPINE 5 views of the cervical spine were obtained including flexion and extension. There is no acute fracture. There is moderate degenerative change with multilevel osteophytes and facet arthropathy. There is 3 mm of anterolisthesis of C5 on C6. There is mild anterolisthesis of C4 on C5. There is no significant abnormal movement with flexion or extension. IMPRESSION: Moderate degenerative changes without acute bony abnormality. No evidence of instability on flexion or extension. Reviewed, Interpreted and Dictated by Jed Khoury III, MD Transcribed by Naa Hernandez Authenticated and . [facility]
--- NOTE | 2023-06-21 11:48 | XR_ITS ---
FINAL REPORT CLINICAL HISTORY: tobacco use (smoker x 60+ yrs) , cough, shortness of breath FINDINGS: Two views of the chest were obtained. The heart size and pulmonary vascularity are within normal limits. The mediastinum is normal. No acute pulmonary abnormality is identified. There is no pneumothorax. The bony thorax is intact. IMPRESSION: No active cardiopulmonary disease. Reviewed, Interpreted and Dictated by Jed Khoury III, MD Transcribed by Luda Oglesby Authenticated and [facility]
[2023-06-21 12:06] LABS: MANUAL DIFFERENTIAL MANUAL DIFFERENTIAL (MANUAL DIFF)
[2023-06-21 13:03] LABS: Basophils # 0.1 K/mm3 (0-0.2); Basophils % 0.9 % (0.1-2.0); Eosinophils # 0.1 K/mm3 (0.0-0.4); Eosinophils % 0.9 % (0.1-12.0); Hematocrit 44.8 % (37.0-47.0); Hemoglobin 14.5 g/dL (12.2-16.2); Lymphocytes # 1.8 K/mm3 (0.7-4.5); Lymphocytes % 24.9 % (10-50); Mean Corpuscular HGB Conc 32.5 g/dL (31.8-35.4); Mean Corpuscular Hemoglobin 32.7 pg (27.0-31.2); Mean Corpuscular Volume 100.5 fl (81-99); Mean Platelet Volume 8.7 fl (7.4-10.4); Monocytes # 0.3 K/mm3 (0.1-1.0); Monocytes % 4.8 % (1.7-9.3); Neutrophils % 68.4 % (37.0-80.0); Platelet Count 155 K/mm3 (142-424); Red Blood Count 4.45 M/mm3 (4.20-5.40); Red Cell Distribution Width 12.7 % (11.5-17.5); White Blood Count 7.2 K/mm3 (4.8-10.8)
[2023-06-21 13:35] LABS: Alanine Aminotransferase 25 U/L (12-78); Albumin Level 4.4 g/dl (3.5-5.0); Albumin/Globulin Ratio 1.5 (1.1-1.8); Alkaline Phosphatase 112 U/L (38-126); Anion Gap 10.1 mEq/L (5-15); Aspartate Amino Transferase 37 U/L (14-36); Bilirubin,Direct 0.2 mg/dl (0.0-0.4); Bilirubin,Indirect 0.6 mg/dL (0.0-0.9); Bilirubin,Total 0.8 mg/dl (0.2-1.3); Bilirubin,Unconjugated 0.6 mg/dL (0.0-1.1); Blood Urea Nitrogen 10 mg/dl (7-17); Calcium 9.7 mg/dl (8.4-10.2); Carbon Dioxide 28 mmol/L (22.0-30.0); Chloride 103 mmol/L (98-107); Estimated Glomerular Filt Rate 81 ml/min (>60); GFR (African American) 98 ML/MIN (>60); Glucose 93 mg/dl (74-100); Potassium 4.1 mmoL/L (3.5-5.1); Sodium 137 mmol/L (136-145); Total Protein,Serum 7.4 g/dl (6.3-8.2)
[2023-06-21 14:06] LABS: Thyroid Stimulating Hormone 1.99 uIU/mL (0.465-4.68)
[2023-06-21 14:22] LABS: Eosinophils % 1 % (0-3); Lymphocytes % 21 % (10-50); Monocytes % 7 % (2-9); Neutrophils % 71 % (42-76); Platelet Estimate Slight Decrease; RBC Morphology Normal; Total Cells Counted 100
[2023-06-21 14:42] LABS: Vitamin B12 958 pg/mL (239-931)
== END 2023-06-21 23:59 ==
LOC: LAB 11:45
PROVIDERS: PCP Family Medicine; Visit Provider Nurse Practitioner Family
DX: M54.2 Cervicalgia; R20.0 Anesthesia of skin; R20.2 Paresthesia of skin; R47.89 Other speech disturbances; G89.29 Other chronic pain; R26.89 Other abnormalities of gait and mobility; G25.9 Extrapyramidal and movement disorder, unspecified; G47.34 Idiopathic sleep related nonobstructive alveolar hypoventilation; Z72.0 Tobacco use; Z86.73 Personal history of transient ischemic attack (TIA), and cerebral infarction without residual deficits; Z99.81 Dependence on supplemental oxygen
CPT/HCPCS: 36415; 71046; 72052; 80053; 80076; 82607; 82746; 84443; 85007; 85014; 85018; 85048; 85049

== ENCOUNTER 2023-06-26 15:36 | Outpatient (CLI) | payer MEDICARE, OTHER, SELFPAY ==
--- NOTE | 2023-06-26 15:36 | MR_ITS ---
FINAL REPORT CLINICAL HISTORY: imbalance, word finding diff, hx cva FINDINGS: Multiplanar MR imaging of the brain was performed without and with contrast. There is mild age-appropriate atrophy. Scattered foci of increased T2 signal are seen in the cerebral white matter that have a nonspecific appearance but likely represent mild chronic ischemic/gliotic changes. There is no evidence of intracranial hemorrhage or mass. No abnormal ventricular dilatation is identified. There is no evidence of shift of the midline structures. No abnormal extra-axial fluid collection is seen. No area of abnormal restricted diffusion is identified. The posterior fossa and brainstem have an unremarkable appearance. No abnormal contrast enhancement is seen. Normal major vessel vascular flow voids are seen. IMPRESSION: Mild atrophy and chronic ischemic/gliotic changes. No acute intracranial abnormality. Reviewed, Interpreted and Dictated by Jed Khoury III, MD Transcribed by Kalee Hoyos Authenticated and [facility]
[2023-06-26] MEDS: GADOTERIDOL INJ 17ML SYRINGE 10 ML IV (16:48)
[2023-06-26] MEDS: SODIUM CHLORIDE 0.9% 10ML SYR (RAD ONLY) 10 ML IV (16:48)
== END 2023-06-26 23:59 ==
LOC: RAD 15:36
PROVIDERS: PCP Family Medicine; Visit Provider Nurse Practitioner Family
DX: G25.9 Extrapyramidal and movement disorder, unspecified (principal); Z86.73 Personal history of transient ischemic attack (TIA), and cerebral infarction without residual deficits; R20.0 Anesthesia of skin; R20.2 Paresthesia of skin; M54.2 Cervicalgia; G89.29 Other chronic pain; G47.9 Sleep disorder, unspecified; G47.34 Idiopathic sleep related nonobstructive alveolar hypoventilation; R13.10 Dysphagia, unspecified; R47.89 Other speech disturbances; R26.89 Other abnormalities of gait and mobility; F17.210 Nicotine dependence, cigarettes, uncomplicated; Z99.81 Dependence on supplemental oxygen
CPT/HCPCS: 70553; A9576

== ENCOUNTER 2023-09-26 10:59 | Outpatient (CLI) | payer MEDICARE, OTHER, SELFPAY ==
--- NOTE | 2023-09-26 11:09 | US_ITS ---
FINAL REPORT CLINICAL HISTORY: AAA W/O RUPTURE COMPARISON: 03/01/2021 FINDINGS: Limited images of the abdominal aorta were obtained. The abdominal aorta measures 3.9 cm, previously measured 3.6 cm. IMPRESSION: Abdominal aorta measures 3.9 cm. If indicated, CT could further evaluate. Reviewed, Interpreted and Dictated by Jed Khoury III, MD Transcribed by Luda Oglesby Authenticated and . [facility]
== END 2023-09-26 23:59 | disposition home or self-care (01) ==
LOC: RAD 11:00
PROVIDERS: PCP Family Medicine; Visit Provider Thoracic Surgery (Cardiothoracic Vascular Surgery)
DX: I71.40 Abdominal aortic aneurysm, without rupture, unspecified (principal)
CPT/HCPCS: 76770

== ENCOUNTER 2024-07-24 13:27 | Outpatient (CLI) | payer MEDICARE, OTHER, SELFPAY ==
--- NOTE | 2024-07-24 13:30 | CT_ITS ---
FINAL REPORT CLINICAL HISTORY: lung cancer screening SMOKER 1 PPD X 63 YEARS COMPARISON: CT chest 03/16/2020 FINDINGS: CT CHEST LOW DOSE SCREENING 76-year-old female, 13-vdil-cqlb history, current smoker HISTORY: Screening exam for lung cancer. DOSE: CTDI vol: 2.90 mGy, DLP: 96.38 mGy*cm TECHNIQUE: Axial CT without IV contrast administration using low dose protocol. This study was performed with techniques to keep radiation doses as low as reasonably achievable, (ALARA). Individualized dose reduction techniques using automated exposure control or adjustment of mA and/or kV according to the patient's size were employed. No acute lung disease is present. There is a 4 mm left upper lobe nodule seen on image #32 of series 3, stable. There are extensive chronic interstitial changes, slightly worse than seen on the prior CT of 2019. No new nodules or masses are identified. No pleural or pericardial effusion is seen. There is right paratracheal and AP window adenopathy, stable, likely reactive. IMPRESSION: No suspicious nodules are identified. Extensive chronic interstitial changes, slightly worse when compared to the prior exam. Stable benign appearing mediastinal adenopathy. LUNG RADS CATEGORY 2 RECOMMENDATION: 12 month LDCT follow up Reviewed, Interpreted and Dictated by Guilherme Sun MD Transcribed by Kelley Bethea Authenticated and [facility]
--- OUTSIDE RECORDS SUMMARY | 2024-07-24 23:27 | XMS_ITS ---
Author Organization Unknown TREATMENT PLAN [facility] Start Date Provider Encounter for Check-up [id number] STAR Villalta
--- OUTSIDE RECORDS SUMMARY | 2024-07-24 23:28 | XMS_ITS | Data Portability ---
Author Organization [place] - [facility] & HERNAN Li ADMIN Address [address] [place] [phone] Assessment No assessment recorded. Plan of Treatment Reminders Order Date Submit Date Provider Last Modified By Organization Details Last Modified Time Details Appointments None record ed. Lab None record ed. Referral None record ed. Procedures None record ed. Surgeries None record ed. Imaging None record ed. Medication Orders None record ed. Patient TargetsNo targets recorded. Patient Instructions Encounter Date Encounter Id Patient Instructions Last Modified By Organization Details Last Modified Time 01/10/2022 [id number] 1-Fit with Unitron Moxi B1 RODRICK hearnig aids bilaterally. 2-F/u prn. Not available 01/10/2022 16:37:57 Reason for Referral None Reported. Medical Equipment None Reported. Medications Name Sig Start Date Stop Date Status Note LastModified by Organization Details LastModified Time metoprolol succinate ER 100 mg tablet,exten ded release 24 hr active Not Available Not Available Not Available Nexium 40 mg capsule,arturo yed release active Not Available Not Available Not Available amlodipine 5 mg tablet active Not Available Not Available No t Available Plavix 75 mg tablet active Not Available Not Available Not Available lisinopril 5 mg tablet active Not Available Not Available No t Available Ubrelvy 100 mg tablet active Not Available Not Available No t Available Ubrelvy 50 mg tablet TAKE ONE TABLET BY MOUTH AT ONSET OF MIGRAINE.. REPEAT IN 2 HOURS IF NEEDED DIRECTED active Not Available Not Available No t Available Vitals None Recorded Social History None recorded. Functional Status None recorded. Mental Status None recorded. Family History Nothing Reported. Medical History No medical history recorded. Gynecological HistoryNo gynecological history recorded. Obstetrics History GPAL:G 0 P 0 0 0 0 Past Encounters Encounter ID Performer Location Encounter Start Date Encounter Closed Date Diagnosis/Indication Diagnosis SNOMED-CT Code Diagnosis ICD10 Code Diagnosis Note [id number] [facility] - [id number], [place] [address] 01/10/2022 16:14:49 01/10/2022 16:38:54 Sensorineural hearing loss 43689369 H90.3 Health Concerns Section Related Observation LastModified by Organization Detai ls LastModified Time None Recorded Concern Status LastModified by Organization Details LastModified Time None Recorded Advance Directives Directive None Recorded Payers Encounter Date Sequence Insurance Name Policy Number Policy Juarez Covered Member ID Juarez Member ID Guarantor Name 01/10/2022 1 [place] OF [facility] MEDIBLUE PLUS (MEDICARE REPLACEMENT HMO) [id number] Melvina Rangel [id number] Melvina Rangel Notes Date Note Type Note Provider Name and Address Organization Details Recorded Time 01/10/2022 text/html Ms. Rangel was seen today for a hearing aid fitting via [facility]. ANIBAL MARIE, PAU [address] [facility], [place], [address], [facility] & [place] 01/10/2022 16:38:07 OBGyn Episode No OBEpisode recorded.
== END 2024-07-24 23:59 | disposition home or self-care (01) ==
LOC: RAD 13:27
PROVIDERS: PCP Internal Medicine; Visit Provider Internal Medicine
DX: F17.210 Nicotine dependence, cigarettes, uncomplicated (principal)
CPT/HCPCS: 71271

== ENCOUNTER 2024-07-30 11:04 | Outpatient (CLI) | payer MEDICARE, OTHER, SELFPAY ==
[2024-07-30 14:19] LABS: Blood Urea Nitrogen 9 mg/dl (7-17); Calcium 9.5 mg/dl (8.4-10.2); Carbon Dioxide 28 mmol/L (22.0-30.0); Chloride 100 mmol/L (98-107); Estimated Glomerular Filt Rate 97 ml/min (>60); GFR (African American) 117 ML/MIN (>60); Glucose 82 mg/dl (74-100); Sodium 136 mmol/L (136-145)
== END 2024-07-30 23:59 | disposition home or self-care (01) ==
LOC: LAB.DROPOF 07-31 09:11
PROVIDERS: PCP Internal Medicine; Visit Provider Internal Medicine
DX: E87.1 Hypo-osmolality and hyponatremia (principal)
CPT/HCPCS: 80048

== ENCOUNTER 2024-08-06 18:10 | Emergency (ER) | payer MEDICARE, OTHER, SELFPAY ==
[2024-08-06 18:21] VITALS: BP 110/60; PULSE 70; RESP 18; TEMP 36.8; O2SAT 98; BMI 22.6
--- OUTSIDE RECORDS SUMMARY | 2024-08-06 18:33 | XMS_ITS | Data Portability ---
Author Organization [place] - [facility] & HERNAN Li ADMIN Address [address] [place] [phone] Assessment No assessment recorded. Plan of Treatment [...] By Organization Details Last Modified Time 01/10/2022 [id number] 1-Fit with Unitron Moxi B1 RODRICK hearnig aids bilaterally. 2-F/u prn. [email or web address] Not available 01/10/2022 16:37:57 Reason for Referral [...] SNOMED-CT Code Diagnosis ICD10 Code Diagnosis Note [id number] [facility] - [id number] [facility], [place] [address] 01/10/2022 16:14:49 01/10/2022 16:38:54 Sensorineural hearing loss [id number] H90.3 Health Concerns Section Related Observation LastModified by Organization Detai ls LastModified Time None Recorded Concern Status LastModified by Organization Details LastModified Time None Recorded Advance Directives Directive None Recorded Payers Encounter Date Sequence Insurance Name Policy Number Policy Juarez Covered Member ID Juarez Member ID Guarantor Name 01/10/2022 1 [place] OF [facility] MEDIBLUE PLUS (MEDICARE REPLACEMENT HMO) [id number] Melvina Rangel [id number] Melvina Rangel Notes Date Note Type Note Provider Name and Address Organization Details Recorded Time 01/10/2022 text/html Ms. Rangel was seen today for a hearing aid fitting via [facility]. ANIBAL MARIE, PAU [address] [facility], [place], [address], [facility] & [place] 01/10/2022 16:38:07 OBGyn Episode No OBEpisode recorded.
--- NOTE | 2024-08-06 18:41 | XR_ITS ---
PROCEDURE INFORMATION: Exam: XR Right Knee Exam date and time: 08/06/2024 6:43 PM Age: 78 years old Clinical indication: Pain; Knee; Right; Additional info: Fall, knee and elbow pain TECHNIQUE: Imaging protocol: Radiologic exam of the right knee. Views: 3 views. COMPARISON: CR ANKCMRT XR ankle RT min 3V 01/21/2018 3:28 PM FINDINGS: Bones/joints: No acute fracture or malalignment. Soft tissues: Anterior knee soft tissue swelling. Vasculature: Vascular calcifications. IMPRESSION: Anterior knee soft tissue swelling. No acute osseous findings.
--- NOTE | 2024-08-06 18:41 | XR_ITS ---
PROCEDURE INFORMATION: Exam: XR Left Elbow Exam date and time: 08/06/2024 6:43 PM Age: 78 years old Clinical indication: Pain; Elbow; Left; Additional info: Fall, L elbow pain TECHNIQUE: Imaging protocol: Radiologic exam of the left elbow. Views: 3 or more views. COMPARISON: No relevant prior studies available. FINDINGS: Bones/joints: No acute fracture or malalignment. No joint effusion. Soft tissues: Unremarkable. IMPRESSION: No acute osseous findings.
--- NOTE | 2024-08-06 18:49 | ED_ITS ---
Discharge Plan Disposition Patient Disposition: Home, Self-Care Prescriptions Prescriptions: No Action Ubrelvy 50 mg tablet PO ONCE PRN cetirizine [Zyrtec] 10 mg tablet 10 mg PO DAILY vitamin E (dl, acetate) 45 mg (100 unit) capsule 45 mg PO DAILY folic acid 800 mcg tablet 0.8 mg PO DAILY cholecalciferol (vitamin D3) 50 mcg (2,000 unit) capsule 2,000 unit PO DAILY omega-3 fatty acids [Fish Oil Concentrate] 1,000 mg capsule 1,000 mg PO BID metoprolol tartrate 25 mg tablet 25 mg PO DAILY PRN Patient Comments: TAKE 1 TABLET BY MOUTH ONCE DAILY NEEDED metoprolol succinate 25 mg tablet extended release 24 hr 25 mg PO DAILY Patient Comments: TAKE 1 TABLET BY MOUTH ONCE DAILY nitroglycerin 0.4 mg tablet, sublingual 0.4 mg sublingual Q5-15M PRN Rx Instructions: do not exceed 3 doses per episode hydroxyzine HCl 25 mg tablet 25 mg PO TID PRN (Reason: Anxiety/sleep) Qty: 30 0RF clopidogrel [Plavix] 75 mg tablet 75 mg PO DAILY Qty: 90 1RF Referrals Follow up/Referrals: Mandeep Barajas DO [Primary Care Provider] - See instructions Activity Restrictions/Add. Instructions Additional Instructions/Restrictions: Follow-up with your primary care doctor. Please return the emerged part with any new, concerning, worsening symptoms. Clinical Impressions Clinical Impression: Fall Qualifiers: Encounter type: initial encounter Qualified Code(s): W19.XXXA - Unspecified fall, initial encounter Acute knee pain Qualifiers: Laterality: right Qualified Code(s): M25.561 - Pain in right knee Elbow pain Qualifiers: Laterality: left Qualified Code(s): M25.522 - Pain in left elbow Print Language Print Language: Lao Discharge ED Provider: Boyd Sage General Adult [facility] General Chief complaint: PAIN Stated complaint: AO 08-06 fell and hurt right knee Time Seen by Provider: 08/06/24 18:13 Mode of Arrival: Ambulatory Source of Information: Patient Limitations: No Limitations Description of Symptoms (Recalled from ER Triage Doc. by RN): Pt presents for evaluation of left elbow pain and right knee pain. Pt states she missed a step while walking and fell. Pt did not hit her head and did not have LOC. Pt is on plavix. Pt has a skin tear to her left elbow and abrasion to right knee History of Present Illness HPI narrative: This is a 78-year-old female with a history of carotid artery stenosis on Plavix, atrial fibrillation, hypertension, hyperlipidemia, fatty liver disease presenting after a fall. States that she fell from standing after tripping and landed with all of her weight on her right knee. States that she also scraped her left elbow. Denies hitting her head or loss of consciousness. Denies any other injuries Related Data Home Medications ?Medication ?Instructions ?Recorded ?Confirmed cholecalciferol (vitamin D3) 50 2,000 unit PO DAILY 06/06/19 07/30/24 mcg (2,000 unit) capsule folic acid 800 mcg tablet 0.8 mg PO DAILY 06/06/19 07/30/24 omega-3 fatty acids 1,000 mg 1,000 mg PO BID 09/11/19 07/30/24 capsule (Fish Oil Concentrate) ubrogepant 50 mg tablet (Ubrelvy) mg PO ONCE PRN 06/10/20 07/30/24 vitamin E (dl, acetate) 45 mg (100 45 mg PO DAILY 07/30/23 07/30/24 unit) capsule cetirizine 10 mg tablet (Zyrtec) 10 mg PO DAILY 07/04/24 07/30/24 metoprolol succinate 25 mg 25 mg PO DAILY 07/04/24 07/30/24 tablet,extended release 24 hr metoprolol tartrate 25 mg tablet 25 mg PO DAILY PRN 07/04/24 07/30/24 nitroglycerin 0.4 mg sublingual 0.4 mg sublingual Q5-15M PRN 07/04/24 07/30/24 tablet Previous Rx's ?Medication ?Instructions ?Recorded Plavix 75 mg tablet (clopidogrel) 75 mg PO DAILY #90 tabs 05/10/21 hydroxyzine HCl 25 mg tablet 25 mg PO TID PRN Anxiety/sleep #30 07/04/24 tabs Allergies Allergy/AdvReac Type Severity Reaction Status Date / Time amoxicillin (AMOXICILLIN) Allergy Unknown NA-NAUSEA/V Verified 07/30/24 11:10 OMITING aspirin (ASPIRIN) Allergy Unknown HEART Verified 07/30/24 11:10 PAL/HEADACHES varenicline (From CHANTIX) Allergy Unknown NA-NAUSEA/V Verified 07/30/24 11:10 OMITING/HEA DACHES Iodinated Contrast Media Allergy Verified 07/30/24 11:10 red dye Allergy Unknown Verified 07/30/24 11:10 allergy reaction rosuvastatin (From Crestor) AdvReac Intermediate headache, Verified 07/30/24 11:10 all over body feeling bad fluoxetine (From Prozac) AdvReac suicidal Verified 07/30/24 11:10 thoughts PFSH [facility] Disclaimer: The information contained in this section may have been updated after the patient was seen, as this information can be updated by other users. Medical History (Updated 08/06/24 @ 18:56 by Boyd Sage MD) COPD (chronic obstructive pulmonary disease) Low sodium levels Osteoarthritis Rheumatoid arthritis Anesthesia of skin Knee pain Migraine Arrhythmia GERD (gastroesophageal reflux disease) Nausea & vomiting Anxiety Hypertension Surgical History (Updated 07/04/24 @ 11:41 by Joyce Lewis CMA) History of appendectomy H/O dilation and curettage H/O eye surgery History of hysterectomy Hx of cholecystectomy Family History Other Family history of cancer Family history of myocardial infarction Social History (Updated 07/04/24 @ 11:41 by Joyce Lewis CMA) Smoking Status: Current every day smoker tobacco type: cigarettes packs per day: 1 second hand exposure: Yes alcohol intake: never substance use type: denies use current occupational status: disabled Travel in the last 8 weeks: None caffeine: No Have you lived/traveled outside [place] in past 30 days?: No Contact w/someone who lives/traveled outside US past 30 days?: No Exposure to someone with infectious disease in past 14 days?: No Do you have a fever (greater than 100.4 F or 38 C)?: No Have you tested positive for COVID-19: No Exposed to someone with COVID-19 in past 14 days?: No Do you have a sore throat?: No Do you have a cough?: No Do you have any weakness?: No Do you have any diarrhea?: No Are you experiencing any unusual bleeding?: No Do you have any muscle aches/pain?: No Do you have any abdominal pain?: No Are you experiencing loss of taste or smell?: No Other Medical History Have you received the Flu Vaccine for this season: No Have you received the Pneumonia Vaccine: No ROS Obtained: Yes All systems reviewed & no additional complaints except as documented Physical Exam General General appearance: alert and in no apparent distress Head Head exam: atraumatic Eye Eye exam: Present normal appearance, PERRL and EOMI Neck Neck exam: Present normal inspection and full ROM Chest Chest inspection: Present symmetric chest wall rise Respiratory Respiratory exam: Present normal lung sounds bilaterally; Absent respiratory distress Cardiovascular Cardiovascular exam: Present regular rate and normal rhythm Abdominal Exam Abdominal exam: Present soft; Absent distention Extremities Exam Extremities exam: Present other (RLE: Abrasion and tenderness overlying the patella. No deformity. No effusion. Range of motion intact. LUE: Abrasion o verlying olecranon. No deformity. No significant tenderness.) Neurological Exam Neurological exam: Present alert and oriented X3 Psychiatric Psychiatric exam: Present normal affect and normal mood Skin Skin exam: Present warm and dry Medical Decision Making Medical Records Medical records reviewed: Yes I reviewed the patient's medical records. Screening: Per USPSTF and CDC recommendations, given the prevalence of disease in our region, it is our hospital?s policy to screen for HIV and viral Hepatitis for all patients aged 18 and over and those with ongoing risk factors. MR Comment: Family practice clinic visit note from 07/04/2024 notable for patient's past medical history as noted above. Lai Inquiry Pt receiving controlled substance: No Vital Signs: 08/06/24 18:21 Temperature 98.3 F Temperature Source Oral Pulse Rate [Right] 70 Respiratory Rate 18 Blood Pressure [Right Arm] 110/60 Blood Pressure Mean [Right Arm] 76 Blood Pressure Source [Right Arm] Automatic Cuff Blood Pressure Position [Right Arm] Sitting 02 Sat by Pulse Oximetry 98 Oxygen Delivery Method Room Air Orders (Tests/Meds): ORDERS Category Date Time Status Elbow XR left mininum 3 views [XR elbow LT min 3V] Stat Exams 08/06/24 18:41 Taken Knee XR right 3 views [XR knee RT 3V] Stat Exams 08/06/24 18:41 Taken Medical Decision Narrative: In summary, this 78-year-old female with a history of carotid artery stenosis on Plavix, atrial fibrillation, hypertension, hyperlipidemia, fatty liver presents to the emergency department today with knee and elbow pain after a fall. On initial evaluation patient is afebrile, hemodynamically stable, nontoxic-a ppearing. Differential diagnosis includes but is not limited to fracture, dislocation, soft tissue injury. Based on these concerns, I ordered x-ray imaging of the left elbow and the right knee. XR personally interpreted demonstrates no acute osseous pathology. Patient was ambulatory and in no acute distress. Appropriate for discharge with outpatient follow-up at this time. Discharged in stable condition. Critical Care Critical Care Time Critical Care Time: No
[2024-08-06 19:18] VITALS: BP 117/57; PULSE 73; RESP 20; TEMP 36.7; O2SAT 98
== END 2024-08-06 19:26 | disposition home or self-care (01) ==
PROVIDERS: Emergency Provider Student in an Organized Health Care Education/Training Program; PCP Internal Medicine
DX: M25.561 Pain in right knee (principal); M25.522 Pain in left elbow; W01.10XA Fall on same level from slipping, tripping and stumbling with subsequent striking against unspecified object, initial encounter
CPT/HCPCS: 73080; 73562; 99284

== ENCOUNTER 2024-08-08 07:31 | Outpatient (CLI) | payer MEDICARE, OTHER, SELFPAY ==
[2024-08-08 13:40] LABS: Alanine Aminotransferase 13 U/L (12-78); Albumin Level 4.2 g/dl (3.5-5.0); Albumin/Globulin Ratio 1.3 (1.1-1.8); Alkaline Phosphatase 83 U/L (38-126); Anion Gap 10.5 mEq/L (5-15); Aspartate Amino Transferase 29 U/L (14-36); Bilirubin,Total 0.7 mg/dl (0.2-1.3); Blood Urea Nitrogen 12 mg/dl (7-17); Calcium 9.5 mg/dl (8.4-10.2); Carbon Dioxide 26 mmol/L (22.0-30.0); Chloride 106 mmol/L (98-107); Estimated Glomerular Filt Rate 120 ml/min (>60); GFR (African American) 145 ML/MIN (>60); Globulin 3.2 g/dL (1.3-3.2); Glucose 93 mg/dl (74-100); Potassium 4.5 mmoL/L (3.5-5.1); Sodium 138 mmol/L (136-145); Total Protein,Serum 7.4 g/dl (6.3-8.2)
[2024-08-08 14:18] LABS: HIV Combo NEGATIVE (Negative)
[2024-08-08 14:27] LABS: Hepatitis C Ab Qual. W/ RFX NEGATIVE (Negative)
== END 2024-08-08 23:59 | disposition home or self-care (01) ==
LOC: LAB.DROPOF 08-09 07:31
PROVIDERS: PCP Internal Medicine; Visit Provider Internal Medicine
DX: Z00.00 Encounter for general adult medical examination without abnormal findings (principal); Z11.4 Encounter for screening for human immunodeficiency virus [HIV]; Z11.59 Encounter for screening for other viral diseases
CPT/HCPCS: 80053; 86803; 87389

== ENCOUNTER 2024-10-09 16:11 | Outpatient (CLI) | payer MEDICARE, OTHER, SELFPAY ==
[2024-10-09 16:51] LABS: Coronavirus 19, PCR Not Detected (NotDetected); Human Rhinovirus Not Detected (NotDetected); Influenza A, PCR Not Detected (NotDetected); Influenza B, PCR Not Detected (NotDetected); Respiratory Syncytial Virus Not Detected (NotDetected)
--- OUTSIDE RECORDS SUMMARY | 2024-10-10 10:16 | XMS_ITS | Encounter Summary ---
Author Organization [place] [address] Care Team Providers Care Airplane Fueler Name Role Phone Moshe Yuan MD Primary Care Provider [phone] Reason for Visit * Reason Onset Date Comments Medication Management 10/03/2024 Entry Level Chemist Template Reproduction Technician: [facility] [phone] Encounter Details Date Type Department Care Team (Late st Contact Info) Description 10/03/2024 Patient Outreach [facility] [address] [place] [address] Guillermina Yuan CPhT Medication Management (Entry Level Chemist Template Reproduction Technician: [facility] [phone]/) Social History Tobacco Use Types Packs/Day Years Used Date Smoking Tobacco: Every Day Cigarettes 1 64.5 Started: [birth year]/16/1959 Passive Smoke Exposure: Never Smokeless Tobacco: Never Alcohol Use Standard Drinks/Week Comments Not Currently 0 (1 standard drink = 0.6 oz pur e alcohol) PHQ-2 Answer Date Recorded PHQ-2 Total Score 0 09/04/2023 Comments No Sex and Gender Information Value Date Recorded Sex Assigned at Not on file Legal Sex Female 6:48 AM EDT Gender Identity Not on file Sexual Orientation Not on file documented as of this encounter Functional Status * Is the person deaf or does he/she have serious difficulty hearing? Answer Date of Assessment Author No 08/17/2023 2:25 PM EDT Santosh Nelson MA * Is the person blind or does he/she have serious difficulty seeing even when wearing glasses? Answer Date of Assessment Author No 08/17/2023 2:25 PM EDT Santosh Nelson MA * Does this person have serious difficulty walking or climbing stairs? Answer Date of Assessment Author No 08/17/2023 2:25 PM EDT Santosh Nelson MA * Does this person have difficulty dressing or bathing? Answer Date of Assessment Author No 08/17/2023 2:25 PM EDT Santosh Nelson MA * Because of a physical, mental or emotional condition, does this person have difficulty doing errands alone such as visiting a doctor's office or shopping? Answer Date of Assessment Author No 08/17/2023 2:25 PM EDT Santosh Nelson MA documented as of this encounter Mental Status * Because of a physical, mental or emotional condition, does this person have serious difficulty concentrating, remembering or making decisions? Answer Entry Date Author No 08/17/2023 2:25 PM EDT Santosh Nelson MA documented in this encounter Progress Notes * Guillermina Yuan CPhT - 10/03/2024 2:45 PM EDT Ambulatory Pharmacy Outreach 10/03/2024 by Guillermina Yuan CPhT Patient Melvina Rangel was contacted by Clinical Template Reproduction Technician for Care of Older Adult (COA) Comprehensive Medication Review (CMR) and/or Pain/Function question(s). Clinical Ironworker Apprentice Shop outreaching to patient to attempt to schedule pharmacist appointment for medication review (CMR) ONLY No TIPS at this time This is the FIRST attempt to reach patient. bridge saw operator unable to reach patient. bridge saw operator left voice mail with call back number of [phone]. Next outreach by Clinical bridge saw operator on or around 11/02/24 if applicable. Sent MyChart letter to inform patient that they are eligible to schedule an appointment with the Clinical Pharmacist. Guillermina Yuan CPhT documented in this encounter Plan of Treatment Upcoming Encounters Date Type Department Care Team (Late st Contact Info) Description 10/27/2024 12:00 PM EDT Office Visit [facility] [address] [place] [address] Jaiden Dominique MD [address] [facility] [address] [place] [address] documented as of this encounter Goals Goal Patient Goal Type Associated Problems Recent Progress Patient-Stated? Author Blood Pressure < 140/90 Blood Pressure 120/70(2024 9:48 AM EDT) No Moshe Yuan MD Maintain a healthy diet, exercise regularly and maintain an ideal body weight General No Moshe Yuan MD Stay Tobacco Free Lifestyle No Thang Nelson MA documented as of this encounter Visit Diagnoses Not on filedocumented in this encounter Additional Health Concerns Assessment Noted Time A fall risk assessment has been complete d for the patient 08/17/2023 2:26 PM EDT documented as of this encounter Care Teams Airplane Fueler Relationship Specialty Start Date End Date Moshe Yuan MD [address] [place] [address] PCP - General Family Medicine 08/17/23 documented as of this encounter
--- OUTSIDE RECORDS SUMMARY | 2024-10-10 10:16 | XMS_ITS | Clinical Summary ---
Author Organization Healthcare Address [address] [id number] Care Team Providers Care Senior Storage Engineer Name Role Phone Jayla Bowie Primary Care Provider [phone] Social History Tobacco Use Types Packs/Day Years Used Date Smoking Tobacco: Every Day Alcohol Use Standard Drinks/Week Comments No 0 (1 standard drink = 0.6 oz pur e alcohol) Comments Unknown Sex and Gender Information Value Date Recorded Sex Assigned at Not on file Legal Sex Female 8:31 PM EDT Gender Identity Not on file Sexual Orientation Not on file Last Filed Vital Signs Vital Sign Reading Time Taken Comments Blood Pressure - - Pulse - - Temperature - - Respiratory Rate - - Oxygen Saturation - - Inhaled Oxygen Concentration - - Weight 58.8 kg (129 lb 11.9 oz) 02/11/2016 9:58 AM EDT Height 154.9 cm (5' 1 ) 02/11/2016 9:58 AM EDT Body Mass Index 24.51 02/11/2016 9:58 AM EDT Plan of Treatment Not on file Care Teams Senior Storage Engineer Relationship Specialty Start Date End Date Jayla Bowie PA [address] [place] [address] PCP - General 08/27/20
--- OUTSIDE RECORDS SUMMARY | 2024-10-10 10:16 | XMS_ITS | Clinical Summary ---
Author Organization [facility] Address [address] [place] [address] Phone Care Team Providers Care Managing Editor Name Role Phone Moshe Yuan MD Primary Care Provider [phone] Allergies Active Allergy Reactions Criticality Noted Date Comments Aspirin Palpitations Low 01/27/2016 Headache and insomnia Codeine Nausea Only Low 06/26/2019 Iodinated Contrast Media Other (See Comments) Medium 01/27/2016 Hypotension Peanut Photosensitivity Low 09/19/2021 Fluoxetine Other (See Comments) 07/01/2024 Suicidal thoughts due to prozac Tomato Shortness Of Breath High 08/17/2023 Medications cholecalciferol, vitamin D3, 25 mcg (1,000 unit) Oral Tablet Take 2,000 Units by mouth 2 times daily. Active cyanocobalamin 1,000 mcg Oral Tablet Take 1,000 mcg by mouth daily. Active folic acid (FOLVITE) 1 mg Oral Tablet Take 1 mg by mouth daily. Active VITAMIN E ACETATE ORAL Take 1 Each by mouth daily. Active nitroGLYCERIN (NITROSTAT) 0.4 mg SL Tablet, Sublingual DISSOLVE 1 TABLET UNDER THE TONGUE EVERY 5 MINUTES NEEDED FOR CHEST PAIN. 25 Tablet 2 10/19/19 24 Active clopidogreL (PLAVIX) 75 mg Oral TabletIndications: Carotid stenosis, bilateral,Hx of arterial ischemic stroke Take 1 Tablet by mouth daily. 90 Tablet 1 02/25/20 24 Active diclofenac (VOLTAREN) 1 % Top GelIndications:Mignon odessa osteoarthritis of shoulders, bilateral,DDD (degenerative disc disease), cervical,Degenerat ion of intervertebral disc of lumbar region with discogenic back pain and lower extremity pain Apply 4 g topically 4 times daily. 450 g 3 02/25/20 24 Active metoprolol (LOPRESSOR) 25 mg Oral TabletIndications: Paroxysmal A-fib (HCC) Take 1 Tablet by mouth daily as needed. 90 Tablet 1 02/25/20 24 Active metoprolol succinate (TOPROL-XL) 25 mg Oral Tablet Sustained Release 24 hrIndications:Paro xysmal A-fib (HCC),Essential hypertension,Essen tial tremor Take 1 Tablet by mouth daily. 90 Each 1 02/25/20 24 Active ubrogepant (UBRELVY) 100 mg Oral TabletIndications: Episodic migraine Take 1 Tablet by mouth as needed for Migraine. May repeat dose in 2 hours one time up to a maximum of 200mg per 24 hours 9 Tablet 2 02/25/20 24 Active pantoprazole (PROTONIX) 40 mg Oral Tablet, Delayed Release (E.C.)Indications: Gastroesophageal reflux disease without esophagitis Take 1 Tablet by mouth daily. 90 Tablet 3 03/29/20 24 Active methylPREDNISolone (MEDROL) 4 mg Oral TabletIndications: Contrast media allergy Take 32 mg (8 pills) [address] and repeat again [address] 16 Tablet 05/16/19 25 Active cetirizine (ZYRTEC) 10 mg Oral TabletIndications: Contrast media allergy Take 1 [address] then repeat [address] 05/16/19 25 Active famotidine (PEPCID) 20 mg Oral TabletIndications: Gastroesophageal reflux disease without esophagitis Take 1 Tablet by mouth 2 times daily. 180 Tablet 1 05/16/19 25 Active cetirizine (ZYRTEC) 10 mg Oral TabletIndications: Chronic seasonal allergic rhinitis Take 1 Tablet by mouth daily. As needed for allergies 90 Tablet 1 05/16/19 25 Active busPIRone (BUSPAR) 5 mg Oral TabletIndications: Generalized anxiety disorder Take 1 Tablet by mouth 2 times daily. As needed for anxiety 60 Tablet 5 05/16/19 25 Active Additional Information Patient not taking.Reason: Pt electing to not take the medication, Reported on 07/01/2024 dicyclomine (BENTYL) 10 mg Oral CapsuleIndications :Irritable bowel syndrome with constipation and diarrhea Take 1 Capsule by mouth 4 times daily (before meals and nightly). 120 Capsule 5 05/16/19 25 Active Additional Information Patient not taking.Reason: Pt electing to not take the medication, Reported on 07/01/2024 Active Problems Problem Noted Date Diagnosed Date Chronic seasonal allergic rhinitis 05/16/2024 Assessment & Plan (05/16/2024 11:08 AM EST): Orders: cetirizine (ZYRTEC) 10 mg Oral Tablet; Take 1 Tablet by mouth daily. As needed for allergies Epigastric abdominal pain 05/16/2024 Assessment & Plan (05/16/2024 11:08 AM EST): Orders: CT ABDOMEN PELVIS W CONTRAST; Future Abdominal pain, LUQ (left upper quadrant) 2024 Assessment & Plan (05/16/2024 11:08 AM EST): Orders: CT ABDOMEN PELVIS W CONTRAST; Future Abdominal bloating 05/16/2024 Assessment & Plan (05/16/2024 11:08 AM EST): Orders: CT ABDOMEN PELVIS W CONTRAST; Future ILD (interstitial lung disease) 02/25/2024 Overview (02/25/2024): Dr Dominique -- [facility] Assessment & Plan (02/25/2024 2:13 PM EST): Dr Dominique following Appears currently stable No recent flares Centrilobular emphysema 02/25/2024 Overview (02/25/2024): Noted on CT chest 11/2023 -- mild Seeing Dr Dominique -- [facility] Assessment & Plan (02/25/2024 2:13 PM EST): No flares Mild Stable Pulmonology following Hx of arterial ischemic stroke 02/25/2024 Assessment & Plan (02/25/2024 2:13 PM EST): Orders: clopidogreL (PLAVIX) 75 mg Oral Tablet; Take 1 Tablet by mouth daily. AMB REFERRAL TO NEUROLOGY Brain atrophy 12/06/2023 Overview (12/06/2023): Noted on CT Head from [facility] (scanned in [facility]) - 07/2023 Also noted chronic small vessel changes Assessment & Plan (12/06/2023 2:56 PM EDT): Appears to be age related No suspicion of dementia Will follow Contrast media allergy 11/09/2023 Assessment & Plan (05/16/2024 11:08 AM EST): Orders: methylPREDNISolone (MEDROL) 4 mg Oral Tablet; Take 32 mg (8 pills) [address] and repeat again [address] cetirizine (ZYRTEC) 10 mg Oral Tablet; Take [address] then repeat [address] Primary osteoarthritis of shoulders, bilateral 0 10/22/2023 Assessment & Plan (02/25/2024 2:13 PM EST): Orders: diclofenac (VOLTAREN) 1 % Top Gel; Apply 4 g topically 4 times daily. DDD (degenerative disc disease), cervical 2023 Assessment & Plan (02/25/2024 2:13 PM EST): Orders: diclofenac (VOLTAREN) 1 % Top Gel; Apply 4 g topically 4 times daily. DDD (degenerative disc disease), lumbar 10/22/19 Assessment & Plan (02/25/2024 2:13 PM EST): Orders: diclofenac (VOLTAREN) 1 % Top Gel; Apply 4 g topically 4 times daily. Atherosclerosis of aorta 10/10/2023 Overview (10/10/2023): Per US 09/15/22 Essential hypertension 08/17/2023 Assessment & Plan (02/25/2024 2:13 PM EST): stable Orders: metoprolol succinate (TOPROL-XL) 25 mg Oral Tablet Sustained Release 24 hr; Take 1 Tablet by mouth daily. Mixed hyperlipidemia 08/17/2023 Gastroesophageal reflux disease without esophagi tis 08/17/2023 Assessment & Plan (05/16/2024 11:08 AM EST): Orders: famotidine (PEPCID) 20 mg Oral Tablet; Take 1 Tablet by mouth 2 times daily. Assessment & Plan (03/29/2024 11:06 AM EST): Prevacid no longer effective Try protonix 40 daily Orders: pantoprazole (PROTONIX) 40 mg Oral Tablet, Delayed Release (E.C.); Take 1 Tablet by mouth daily. Assessment & Plan (02/25/2024 2:13 PM EST): Orders: lansoprazole (PREVACID) 30 mg Oral Capsule, Delayed Release(E.C.); Take 1 Capsule by mouth daily. Episodic migraine 08/17/2023 Assessment & Plan (02/25/2024 2:13 PM EST): Orders: ubrogepant (UBRELVY) 100 mg Oral Tablet; Take 1 Tablet by mouth as needed for Migraine. May repeat dose in 2 hours one time up to a maximum of 200mg per 24 hours Generalized anxiety disorder 08/17/2023 Assessment & Plan (05/16/2024 11:08 AM EST): Took valium in past I certainly prefer she not be on this due to potential SE Try buspar low dose to start, push to effective dose if need be Orders: busPIRone (BUSPAR) 5 mg Oral Tablet; Take 1 Tablet by mouth 2 times daily. As needed for anxiety Assessment & Plan (03/29/2024 11:06 AM EST): Ok for prozac Orders: FLUoxetine (PROZAC) 20 mg Oral Capsule; Take 1 Capsule by mouth daily. Paroxysmal A-fib 08/17/2023 Overview (08/17/2023): Dr Shaw Bass -- Cardiology [facility], [place], [place] Assessment & Plan (02/25/2024 2:13 PM EST): Orders: metoprolol (LOPRESSOR) 25 mg Oral Tablet; Take 1 Tablet by mouth daily as needed. metoprolol succinate (TOPROL-XL) 25 mg Oral Tablet Sustained Release 24 hr; Take 1 Tablet by mouth daily. Coronary artery disease invo lving [place] coronary artery of [place] heart without angina pectoris 08/17/2023 Overview (08/17/2023): Dr Shaw Bass -- Cardiology [place], [place] Hypercoagulable state due to paroxysmal atrial f ibrillation 08/17/2023 Cigarette nicotine dependence without complicati on 08/17/2023 Assessment & Plan (08/17/2023 2:43 PM EDT): Advised to quit Essential tremor 08/17/2023 Overview (08/17/2023): Saw Neurology [place] not to be parkinsons Assessment & Plan (02/25/2024 2:13 PM EST): Has been following with Neurology at [facility] ruling out Parkinsons Refer to our group at pts request Orders: metoprolol succinate (TOPROL-XL) 25 mg Oral Tablet Sustained Release 24 hr; Take 1 Tablet by mouth daily. Infrarenal abdominal aortic aneurysm (AAA) witho ut rupture 08/17/2023 Overview (08/17/2023): Cardiothoracic surgery -- Dr Mitchell Nuñez, [place], [place] Assessment & Plan (02/25/2024 2:13 PM EST): Refer to vascular with [facility], she prefers, was seeing [facility] Orders: AMB REFERRAL TO VASCULAR SURGERY Osteoporosis 08/17/2023 Irritable bowel syndrome with constipation and d iarrhea 08/17/2023 Assessment & Plan (05/16/2024 11:08 AM EST): Hx IBS Trial bentyl Orders: dicyclomine (BENTYL) 10 mg Oral Capsule; Take 1 Capsule by mouth 4 times daily (before meals and nightly). Carotid stenosis, bilateral 08/17/2023 Overview (08/17/2023): Mild by hx 20-40% BICA Assessment & Plan (02/25/2024 2:13 PM EST): Orders: clopidogreL (PLAVIX) 75 mg Oral Tablet; Take 1 Tablet by mouth daily. AMB REFERRAL TO VASCULAR SURGERY AMB REFERRAL TO NEUROLOGY Resolved Problems Problem Noted Date Diagnosed Date Resolved Date Tremor 02/25/2024 02/25/2024 Left facial numbness 08/17/2023 024 Overview (08/17/2023): a. Rule out TIA. b. Reported patent foramen ovale by TTE and contrast bubble study (data deficit). Left arm numbness 08/17/2023 08/17/2023 Overview (08/17/2023): a. Rule out TIA. b. Reported patent foramen ovale by TTE and contrast bubble study (data deficit). History of tobacco abuse 08/17/202306/2023 Encounters Date Type Department Care Team Description 10/03/2024 Patient Outreach [facility] [address] [place] [address] Guillermina Yuan CPhT Medication Management (Strategic Sourcing Consultant Supervisor Rolling Room: [facility] [phone]/) from Last 3 Months Immunizations Immunization Administration Dates Next Due Influenza Seasonal Injectable 02/04/2010 ,01/22/2009,01/31/2008,03/21 Pneumococcal Polysaccharide 23 Valent 03/21/2007 Tdap 10/05/2022 Surgical History Surgery Date Site/Laterality Comments APPENDECTOMY TUBAL LIGATION GALLBLADDER SURGERY CATARACT REMOVAL EYE SURGERY hole in eye- repaired CERVIX SURGERY pre-cancer removal x2 Medical History Medical History Date Comments Essential hypertension 08/17/2023 Mixed hyperlipidemia 08/17/2023 Gastroesophageal reflux disease without esophagi tis 08/17/2023 Episodic migraine 08/17/2023 Paroxysmal A-fib (HCC) 08/17/2023 Hypercoagulable state due to paroxysmal atrial f ibrillation (HCC) 08/17/2023 Parkinson's disease with dys kinesia and fluctuating manifestations ([facility]) 08/17/2023 Abdominal aortic aneurysm (A AA) 3.0 cm to 5.0 cm in diameter in female 08/17/2023 Kidney cysts Social History Tobacco Use Types Packs/Day Years Used Date Smoking Tobacco: Every Day Cigarettes 1 64.5 Started: 04/16/1960 Passive Smoke Exposure: Never Smokeless Tobacco: Never Tobacco Cessation:Ready to Q uit: Not Asked; Counseling Given: Not Answered Alcohol Use Standard Drinks/Week Comments Not Currently 0 (1 standard drink = 0.6 oz pur e alcohol) PHQ-2 Answer Date Recorded PHQ-2 Total Score 0 09/04/2023 Comments No Sex and Gender Information Value Date Recorded Sex Assigned at Not on file Legal Sex Female 6:48 AM EDT Gender Identity Not on file Sexual Orientation Not on file Obstetrics History Last Filed Vital Signs Vital Sign Reading Time Taken Comments Blood Pressure 120/70 07/01/2024 9:48 AM EDT Pulse 82 05/16/2024 10:26 AM EST Temperature 36.4 C (97.5 F) 05/16/2024 10:26 AM EST Respiratory Rate 18 10/29/2023 9:16 PM EDT Oxygen Saturation 94% 05/16/2024 10:26 AM EST Inhaled Oxygen Concentration - - Weight 56 kg (123 lb 6.4 oz) 07/01/2024 9:48 AM EDT Height 154.9 cm (5' 1 ) 07/01/2024 9:48 AM EDT Body Mass Index 23.32 07/01/2024 9:48 AM EDT Plan of Treatment Upcoming Encounters Date Type Department Care Team (Late st Contact Info) Description 10/27/2024 12:00 PM EDT Office Visit [facility] [address] [place] [address] Jaiden Dominique MD [address] [facility] Building [address] [place] [phone] Health Maintenance Due Date Last Done Comments Hepatitis C Screening 1963 Zoster (1 of 2) 1996 Pneumococcal Vaccine 50+ (2 of 2 - PCV) 03/21/2008 03/21/2007 RSV or 60+ (1 - 1-dose 75+ series) 2021 COVID-19 Vaccine (1 - 2023- season) 2023 Wellness Exam Medicare 10/22/2024 10/22/2023 Influenza Vaccine (Season Ended) 2024 02/04/2010, 01/22/2009, 01/31/2008, Additional history exists Low Dose Lung Cancer Screening 05/20/2025 05/20/2024, 11/15/2023, 11/02/2023 DTaP/TDaP/Td (2 - Td or Tdap) 10/05/2032 10/05/2022 Bone Density Screening Completed 10/31/2023 Hepatitis B Vaccine Aged Out No longe r eligible based on patient's age to complete this topic Meningococcal B Vaccine Aged Out No l onger eligible based on patient's age to complete this topic Goals Goal Patient Goal Type Associated Problems Recent Progress Patient-Stated? Author Blood Pressure < 140/90 Blood Pressure 120/70(2024 9:48 AM EDT) No Moshe Yuan MD Maintain a healthy diet, exercise regularly and maintain an ideal body weight General No Moshe Yuan MD Stay Tobacco Free Lifestyle No Thang Nelson MA Procedures Procedure Name Priority Date/Time Associated Diagnosis Comments CT CHEST WO CONTRAST Routine 05/20/2024 11:59 AM EST ILD (interstitial lung disease) (HCC) DX BONE DENSITY AXIAL SKELETON Routine 10/31/2023 1:29 PM EDT Post-menopausal At risk for loss of bone density from Last 3 Months or Most Recently Relevant to Health Maintenance Results * CT CHEST WO CONTRAST (05/20/2024 11:59 AM EST) Anatomical Region Laterality Modality Chest Computed Tomogra phy 05/20/2024 11:5 9 AM EST Impressions 05/20/2024 2:37 PM EST There is no acute CT abnormality. There is stable nonspecific chronic interstitial lung disease. This is most pronounced in the lower lung zones. There is stable left paratracheal and AP window mediastinal lymphadenopathy. This is unchanged from 11/15/2023 CT and is attributed to either reactive nodes or old granulomatous disease. There are additional calcified benign lymph nodes in the mediastinum, compatible with old granulomatous disease. - Note: Radiology results need to be interpreted within a comprehensive clinical context. If you have questions about the radiology report, please contact the office of the ordering clinician. Narrative 05/20/2024 2:[address] CHEST WITHOUT CONTRAST, 05/20/2024 11:59 AM CLINICAL HISTORY: J84.9-Interstitial pulmonary disease, unspecified (HCC)-ICD-10-CM. COMPARISON: CT chest dated 11/15/2023 and 11/02/2023. PROCEDURE COMMENTS: Multi-detector CT of the chest with multiplanar reconstructions per protocol. No contrast given. Dose 1 : CT DLP Total : 143.39 mGycm DLP Spiral Max : 140.06 mGycm Maximum CTDI Vol : 3.84 mGy FINDINGS: Trachea and central airways are patent and normal caliber. There are no pleural effusions. There is no pneumothorax. There are irregular intralobular and interlobular lines in a subpleural location in both lungs. This is present throughout both lungs but more pronounced in the lower lobes. There is stable early honeycomb formation in the upper lobes. There are no suspicious pulmonary nodules or masses. There is a calcified granuloma in the superior segment of the right lower lobe. The thyroid gland is normal. The esophagus is normal. The thoracic aorta is normal caliber. There is no pericardial effusion. There is no axillary lymphadenopathy. There are multiple stable enlarged left paratracheal and AP window lymph nodes. Coronary artery calcification: Moderate. Procedure Note Sarahi Hess MD - 05/20/2024 CT CHEST WITHOUT CONTRAST, 05/20/2024 11:59 AM CLINICAL HISTORY: J84.9-Interstitial pulmonary disease, unspecified (HCC)-ICD-10-CM. COMPARISON: CT chest dated 11/15/2023 and 11/02/2023. PROCEDURE COMMENTS: Multi-detector CT of the chest with multiplanar reconstructions per protocol. No contrast given. Dose 1 : CT DLP Total : 143.39 mGycm DLP Spiral Max : 140.06 mGycm Maximum CTDI Vol : 3.84 mGy FINDINGS: Trachea and central airways are patent and normal caliber.There are no pleural effusions. There is no pneumothorax. There are irregularintralobular and interlobular lines in a subpleural location in both lungs. This ispresent throughout both lungs but more pronounced in the lower lobes. There isstable early honeycomb formation in the upper lobes. There are no suspiciouspulmonary nodules or masses. There is a calcified granuloma in the superior segment of the right lowerlobe. The thyroid gland is normal. The esophagus is normal. The thoracic aortais normal caliber. There is no pericardial effusion. There is no axillary lymphadenopathy. There are multiple stable enlarged left paratracheal andAP window lymph nodes. Coronary artery calcification: Moderate. IMPRESSION: There is no acute CT abnormality. There is stable nonspecific chronic interstitial lung disease. This is most pronounced in the lower lungzones. There is stable left paratracheal and AP window mediastinallymphadenopathy. This is unchanged from 11/15/2023 CT and is attributed to either reactivenodes or old granulomatous disease. There are additional calcified benign lymphnodes in the mediastinum, compatible with old granulomatous disease. - Note: Radiology results need to be interpreted within a comprehensiveclinical context. If you have questions about the radiology report, please contactthe office of the ordering clinician. Jaiden Dominique MD [facility] [place] Final Result * DX BONE DENSITY AXIAL SKELETON (10/31/2023 1:29 PM EDT) Anatomical Region Laterality Modality Dexa Scan 10/31/2023 Impressions 11/01/2023 3:15 PM EDT Indication: The patient is a female age 65 or older who requires a bone density assessment. Study was performed on [employer]. Bone Density: Region BMD T-score Z-score AP Spine (L1-L4) 0.989 -0.5 2.0 Femoral Neck (Left) 0.576 -2.5 -0.3 Total Hip (Left) 0.712 -1.9 0.0 Femoral Neck (Right) 0.575 -2.5 -0.3 Total Hip (Right) 0.737 -1.7 0.2 1/3 Radius (Left) 0.529 -2.7 0.0 World Health Organization criteria for BMD interpretation classify patients as: Normal (T-score at or above -1.0), Low Bone Density (T-score between -1.0 and -2.5), or Osteoporotic (T-score at or below -2.5). T Scores are reported in Postmenopausal women and in men age 50 and older. Z-scores are reported in females prior to menopause and in males younger than age 50. 10-year Fracture Risk: FRAX not reported because: Some T-score for Spine Total or Hip Total or Femoral Neck at or below -2.5 Clinical Information Provided by Patient: Smokes Has used or is currently using the following medications: Calcium, Vitamin D Has had or currently has the following medical conditions: Asthma, Emphysema or COPD, Back pain, Hip pain, Vitamin D Insufficiency, Liver disease Patient maximum height was 61.5 Menopause Age: 33 Patient is POST MENOPAUSAL Has low body mass. Interpretation: Bone mineral density is in the osteoporotic range. Medical evaluation for secondary causes of low bone density may be appropriate. A minimum of two years may be required between bone density studies due to inherent testing precision limitations. Intervals between BMD testing should be determined according to each patient's clinical status: typically one year after initiation or change of therapy is appropriate, with longer intervals once therapeutic effect is established. Reported by: Jagruti Cardona PA-C, CCD on 10/31/2023 2:03:00 PM. us Moshe Yuan MD IMG DEXA ORDERABLES Final Res ult from Last 3 Months or Most Recently Relevant to Health Maintenance Insurance [employer] MED[employer]ARE HMO MR [facility] [address] [facility] [address] [employer] MEDICARE HMO MR Care Teams Managing Editor Relationship Specialty Start Date End Date Moshe Yuan MD [address] [place] [address] PCP - General Family Medicine 08/17/23
== END 2024-10-09 23:59 | disposition home or self-care (01) ==
LOC: LAB.DROPOF 10-10 10:05
PROVIDERS: PCP Internal Medicine; Visit Provider Internal Medicine
DX: J02.9 Acute pharyngitis, unspecified (principal)
CPT/HCPCS: 87631

== ENCOUNTER 2024-10-10 11:46 | Outpatient (CLI) | payer MEDICARE, OTHER, SELFPAY ==
--- OUTSIDE RECORDS SUMMARY | 2024-10-10 11:49 | XMS_ITS | Clinical Summary ---
Author Organization [facility] Address [address] [place] [address] Phone Care Team Providers Care Assistant Women'S Rowing Coach Name Role Phone Moshe Yuan MD Primary Care Provider [phone] Allergies Active Allergy Reactions Criticality Noted Date [...] Overview (12/06/2023): Noted on CT Head from [facility] (scanned in [facility]) - 07/2023 Also noted chronic small [...] Overview (08/17/2023): Dr Shaw Bass -- Cardiology [facility], [place], [place] Assessment & Plan (02/25/2024 2:13 PM EST): Orders: metoprolol (LOPRESSOR) 25 mg Oral Tablet; Take 1 Tablet by mouth daily as needed. metoprolol succinate (TOPROL-XL) 25 mg Oral Tablet Sustained Release 24 hr; Take 1 Tablet by mouth daily. Coronary artery disease invo lving [place] coronary artery of [place] heart without angina pectoris 08/17/2023 Overview (08/17/2023): Dr Shaw Bass -- Cardiology [place], [place] Hypercoagulable state due to paroxysmal atrial f ibrillation 08/17/2023 Cigarette nicotine dependence without complicati on 08/17/2023 Assessment & Plan (08/17/2023 2:43 PM EDT): Advised to quit Essential tremor 08/17/2023 Overview (08/17/2023): Saw Neurology [place] not to be parkinsons Assessment & Plan (02/25/2024 2:13 PM EST): Has been following with Neurology at [facility] ruling out Parkinsons Refer to our group at pts request Orders: metoprolol succinate (TOPROL-XL) 25 mg Oral Tablet Sustained Release 24 hr; Take 1 Tablet by mouth daily. Infrarenal abdominal aortic aneurysm (AAA) witho ut rupture 08/17/2023 Overview (08/17/2023): Cardiothoracic surgery -- Dr Mitchell Nuñez, [place], [place] Assessment & Plan (02/25/2024 2:13 PM EST): Refer to vascular with [facility], she prefers, was seeing [facility] Orders: AMB REFERRAL TO VASCULAR SURGERY [...] Care Team Description 10/03/2024 Patient Outreach [facility] [address] [place] [address] Guillermina Yuan CPhT Medication Management (Laboratory Assistant Show Design Supervisor: [facility] [phone]/) from Last 3 Months Immunizations Immunization Administration [...] disease with dys kinesia and fluctuating manifestations ([facility]) 08/17/2023 Abdominal aortic aneurysm (A [...] EDT Office Visit [facility] [address] [place] [address] Jaiden Dominique MD [address] [facility] Building [address] [place] [phone] Health Maintenance Due Date Last Done [...] of the ordering clinician. Jaiden Dominique MD [facility] [place] ORDERABLES Final Result * DX BONE DENSITY AXIAL SKELETON (10/31/2023 1:29 PM EDT) Anatomical Region Laterality Modality Dexa Scan 10/31/2023 Impressions 11/01/2023 3:15 PM EDT Indication: The patient is a female age 65 or older who requires a bone density assessment. Study was performed on [employer]. Bone Density: Region BMD T-score Z-score AP [...] Health Maintenance Insurance [employer] MEDICARE HMO MR [facility] [address] [facility] [address] [employer] MEDICARE HMO MR Care Teams Assistant Women'S Rowing Coach Relationship Specialty Start Date End Date Moshe Yuan MD [address] [place] [address] PCP - General Family Medicine 08/17/23
--- OUTSIDE RECORDS SUMMARY | 2024-10-10 11:49 | XMS_ITS | Encounter Summary ---
Author [place] [address] Care Team Providers Care Night Custodian Name Role Phone Moshe Yuan MD Primary Care Provider [phone] Reason for Visit * Reason Onset Date Comments Medication Management 10/03/2024 Fusing Machine Feeder Associate Web Developer: [facility] [phone] Encounter Details Date Type Department Care Team (Late st Contact Info) Description 10/03/2024 Patient Outreach [facility] [address] [place] [address] Guillermina Yuan CPhT Medication Management (Fusing Machine Feeder Associate Web Developer: [facility] [phone]/) Social History Tobacco Use Types Packs/Day Years [...] Patient Melvina Rangel was contacted by Clinical Associate Web Developer for Care of Older Adult (COA) Comprehensive Medication Review (CMR) and/or Pain/Function question(s). Clinical Patient Access Representative outreaching to patient to attempt to schedule pharmacist appointment for medication review (CMR) ONLY No TIPS at this time This is the FIRST attempt to reach patient. cuff setter unable to reach patient. cuff setter left voice mail with call back number of [phone]. Next outreach by Clinical cuff setter on or around 11/02/24 if applicable. Sent MyChart letter to inform patient that they are eligible to schedule an appointment with the Clinical Pharmacist. Guillermina Yuan CPhT documented in this encounter Plan of Treatment Upcoming Encounters Date Type Department Care Team (Late st Contact Info) Description 10/27/2024 12:00 PM EDT Office Visit [facility] [address] [place] [address] Jaiden Dominique MD [address] [facility] [address] [place] [address] documented as of this encounter [...] documented as of this encounter Care Teams Night Custodian Relationship Specialty Start Date End Date Moshe Yuan MD [address] [place] [address] PCP - General Family Medicine 08/17/23 documented as of this encounter
--- OUTSIDE RECORDS SUMMARY | 2024-10-10 11:50 | XMS_ITS | Clinical Summary ---
Author Organization Healthcare Address [address] [id number] Care Team Providers Care Limousine Rental Clerk Name Role Phone Jayla Bowie Primary Care Provider [phone] Social History Tobacco Use Types Packs/Day Years [...] of Treatment Not on file Care Teams Limousine Rental Clerk Relationship Specialty Start Date End Date Jayla Bowie PA [address] [place] [address] PCP - General 08/27/20
--- NOTE | 2024-10-10 12:02 | XR_ITS ---
FINAL REPORT CLINICAL HISTORY: Abd pain pt c/o lower abd pain COMPARISON: 04/11/2021 FINDINGS: A single view of the abdomen was obtained. The visualized intestinal gas pattern appears nonspecific without evidence to suggest obstruction. Status post cholecystectomy. Pelvic calcifications are considered vascular. IMPRESSION: Nonspecific bowel gas pattern. Reviewed, Interpreted and Dictated by Guilherme Sun MD Transcribed by Naa Hernandez Authenticated and [facility]
[2024-10-10 12:10] LABS: Basophils % 0.5 % (0.1-2.0); Eosinophils # 0.1 Kmm3 (0.0-0.4); Eosinophils % 1.5 % (0.1-12.0); Hematocrit 38.9 % (37.0-47.0); Hemoglobin 13.1 g/dL (12.2-16.2); Immature Granulocytes # 0.01 10^3uL; Immature Granulocytes % 0.1 %; Lymphocytes # 1.8 K/mm3 (0.7-4.5); Lymphocytes % 24.1 % (10-50); Mean Corpuscular HGB Conc 33.7 g/dL (31.8-35.4); Mean Corpuscular Hemoglobin 30.8 pg (27.0-31.2); Mean Corpuscular Volume 91.3 fl (81-99); Monocytes # 0.5 K/mm3 (0.1-1.0); Monocytes % 6.4 % (1.7-9.3); Neutrophils % 67.4 % (37.0-80.0); Nucleated Red Blood Cells # 0 10^3/uL; Nucleated Red Blood Cells % 0 %; Platelet Count 170 K/mm3 (142-424); Red Blood Count 4.26 M/mm3 (4.20-5.40); Red Cell Distribution Width 12.8 % (11.5-17.5); Red Cell Distribution Width-SD 42.4 fL; White Blood Count 7.5 K/mm3 (4.8-10.8)
[2024-10-10 12:30] LABS: Albumin Level 4.4 g/dl (3.5-5.0); Chloride 96 mmol/L (98-107); Potassium 4.4 mmoL/L (3.5-5.1); Sodium 135 mmol/L (136-145)
[2024-10-10 12:32] LABS: Alanine Aminotransferase 17 U/L (12-78); Anion Gap 13.4 mEq/L (5-15); Aspartate Amino Transferase 30 U/L (14-36); Blood Urea Nitrogen 10 mg/dl (7-17); Carbon Dioxide 30 mmol/L (22.0-30.0); Estimated Glomerular Filt Rate 81 ml/min (>60); GFR (African American) 98 ML/MIN (>60)
[2024-10-10 12:33] LABS: Albumin/Globulin Ratio 1.3 (1.1-1.8); Alkaline Phosphatase 112 U/L (38-126); Bilirubin,Total 0.6 mg/dl (0.2-1.3); Calcium 9.6 mg/dl (8.4-10.2); Globulin 3.5 g/dL (1.3-3.2); Glucose 99 mg/dl (74-100); Lipase 66 U/L (23-300); Total Protein,Serum 7.9 g/dl (6.3-8.2)
== END 2024-10-10 23:59 | disposition home or self-care (01) ==
LOC: RAD 11:47
PROVIDERS: PCP Internal Medicine; Visit Provider Internal Medicine
DX: Z00.00 Encounter for general adult medical examination without abnormal findings (principal); R93.3 Abnormal findings on diagnostic imaging of other parts of digestive tract; R10.9 Unspecified abdominal pain
CPT/HCPCS: 36415; 74018; 80053; 83605; 83690; 85025

== ENCOUNTER 2024-10-16 08:42 | Outpatient (CLI) | payer MEDICARE, OTHER, SELFPAY ==
--- NOTE | 2024-10-16 09:00 | US_ITS ---
FINAL REPORT TECHNIQUE: Ultrasound images of the abdomen were obtained. CLINICAL HISTORY: Abd pain COMPARISON: CT of the abdomen and pelvis dated 01/29/2022 FINDINGS: The pancreas is obscured by bowel gas. Fatty infiltration of the liver is present. The gallbladder has been surgically resected. The common duct is normal, measuring 5 mm in diameter. The right kidney measures 8.9 cm in length and is normal in echogenicity without hydronephrosis. The left kidney measures 10.1 cm in length and is without hydronephrosis. There are multiple hypoechoic foci in the left kidney, consistent with renal cysts. The spleen is unremarkable. There is an abdominal aortic aneurysm which measures 4 cm in diameter, stable since the prior CT. The vena cava is unremarkable. IMPRESSION: Prior cholecystectomy, with fatty infiltration of the liver. Multiple hypoechoic foci in the left kidney consistent with cysts. Abdominal aortic aneurysm, 4 cm in diameter, stable since the prior CT. Reviewed, Interpreted and Dictated by Tanvir Gasca MD Transcribed by Kelley Bethea Authenticated and [facility]
--- OUTSIDE RECORDS SUMMARY | 2024-10-16 09:04 | XMS_ITS | Encounter Summary ---
Author Organization [place] [address] Care Team Providers Care Prospecting Driller Name Role Phone Moshe Yuan MD Primary Care Provider [phone] Reason for Visit * Reason Onset Date Comments Medication Management 10/03/2024 Pediatric Social Worker Cold Roll Packer Sheet Iron: [facility] [phone] Encounter Details Date Type Department Care Team (Late st Contact Info) Description 10/03/2024 Patient Outreach [facility] [address] [place] [address] Guillermina Yuan CPhT Medication Management (Pediatric Social Worker Cold Roll Packer Sheet Iron: [facility] [phone]/) Social History Tobacco Use Types Packs/Day Years [...] Patient Melvina Rangel was contacted by Clinical Cold Roll Packer Sheet Iron for Care of Older Adult (COA) Comprehensive Medication Review (CMR) and/or Pain/Function question(s). Clinical Sewer Line Photo Inspector outreaching to patient to attempt to schedule pharmacist appointment for medication review (CMR) ONLY No TIPS at this time This is the FIRST attempt to reach patient. blue line trimmer unable to reach patient. blue line trimmer left voice mail with call back number of [phone]. Next outreach by Clinical blue line trimmer on or around 11/02/24 if applicable. Sent MyChart letter to inform patient that they are eligible to schedule an appointment with the Clinical Pharmacist. Guillermina Yuan CPhT documented in this encounter Plan of Treatment Upcoming Encounters Date Type Department Care Team (Late st Contact Info) Description 10/27/2024 12:00 PM EDT Office Visit [facility] [address] [place] [address] Jaiden Dominique MD 651 [facility] [address] [place] [address] documented as of this encounter [...] documented as of this encounter Care Teams Prospecting Driller Relationship Specialty Start Date End Date Moshe Yuan MD [address] [place] [address] PCP - General Family Medicine 08/17/23 documented as of this encounter
--- OUTSIDE RECORDS SUMMARY | 2024-10-16 09:04 | XMS_ITS | Clinical Summary ---
Author Organization Healthcare Address [address] [id number] Care Team Providers Care Stock Buyer Name Role Phone Jayla Bowie Primary Care Provider [phone] Social History Tobacco Use Types Packs/Day Years [...] of Treatment Not on file Care Teams Stock Buyer Relationship Specialty Start Date End Date Jayla Bowie PA [address] [place] [address] PCP - General 08/27/20
--- OUTSIDE RECORDS SUMMARY | 2024-10-16 09:04 | XMS_ITS | Data Portability ---
Author Organization ID - [facility] ADMIN Address [address] [place] [address] Assessment No assessment recorded. Plan of Treatment [...] By Organization Details Last Modified Time 01/10/2022 [id number] 1-Fit with Unitron Moxi B1 RODRICK hearnig [...] SNOMED-CT Code Diagnosis ICD10 Code Diagnosis Note [id number] PAU [facility] Associate s of [facility] [id number] [facility], [facility] [place] [address] 01/10/2022 16:14:49 01/10/2022 16:38:54 Sensorineural hearing loss [id number] H90.3 Health Concerns Section Related Observation LastModified by Organization Detai ls LastModified Time None Recorded Concern Status LastModified by Organization Details LastModified Time None Recorded Advance Directives Directive None Recorded Payers Insurance Date Sequence Insurance Name Policy Number Policy Juarez Covered Member ID Juarez Member ID Guarantor Name 01/07/2022 1 [place] (MEDICARE REPLACEMENT HMO) [id number] Melvina aRngel [id number] Melvina Rangel 07/11/2022 [employer] Melvina Rangel Notes Date Note Type Note Provider Name and Address Organization Details Recorded Time 01/10/2022 text/html Ms. Rangel was seen today for a hearing aid fitting via [facility]. PAU [facility] [address] [facility], [place], [address], [facility] - [place] - [place] & [place] 01/10/2022 16:38:07 OBGyn Episode No OBEpisode recorded.
--- OUTSIDE RECORDS SUMMARY | 2024-10-16 09:04 | XMS_ITS | Clinical Summary ---
Author Organization [facility] Address [address] [place] [address] Phone Care Team Providers Care Lens Maker Name Role Phone Moshe Yuan MD Primary Care Provider [phone] Allergies Active Allergy Reactions Criticality Noted Date [...] Overview (12/06/2023): Noted on CT Head from [facility] (scanned in [facility]) - 07/2023 Also noted chronic small vessel [...] Overview (08/17/2023): Dr Shaw Bass -- Cardiology [facility], [place], [place] Assessment & Plan (02/25/2024 2:13 PM EST): Orders: metoprolol (LOPRESSOR) 25 mg Oral Tablet; Take 1 Tablet by mouth daily as needed. metoprolol succinate (TOPROL-XL) 25 mg Oral Tablet Sustained Release 24 hr; Take 1 Tablet by mouth daily. Coronary artery disease invo lving saxman coronary artery of saxman heart without angina pectoris 08/17/2023 Overview (08/17/2023): Dr Shaw Bass -- Cardiology [place], [place] Hypercoagulable state due to paroxysmal atrial f ibrillation 08/17/2023 Cigarette nicotine dependence without complicati on 08/17/2023 Assessment & Plan (08/17/2023 2:43 PM EDT): Advised to quit Essential tremor 08/17/2023 Overview (08/17/2023): Saw Neurology [place] not to be parkinsons Assessment & Plan (02/25/2024 2:13 PM EST): Has been following with Neurology at [facility] ruling out Parkinsons Refer to our group at pts request Orders: metoprolol succinate (TOPROL-XL) 25 mg Oral Tablet Sustained Release 24 hr; Take 1 Tablet by mouth daily. Infrarenal abdominal aortic aneurysm (AAA) witho ut rupture 08/17/2023 Overview (08/17/2023): Cardiothoracic surgery -- Dr Mitchell Nuñez, [place], [place] Assessment & Plan (02/25/2024 2:13 PM EST): Refer to vascular with [facility], she prefers, was seeing [facility] Orders: AMB REFERRAL TO VASCULAR [...] Care Team Description 10/03/2024 Patient Outreach [facility] [address] [place] [address] Guillermina Yuan CPhT Medication Management (Nurse Sitter Hunting And Fishing Guide: [facility] [phone]/) from Last 3 Months Immunizations Immunization Administration [...] disease with dys kinesia and fluctuating manifestations ([facility]) 08/17/2023 Abdominal aortic aneurysm (A AA) 3.0 [...] EDT Office Visit [facility] [address] [place] [address] Jaiden Dominique MD 711 [facility] Building [address] [place] [address] Health Maintenance Due Date Last Done Comments Hepatitis C Screening 1963 Zoster (1 of 2) 1996 Pneumococcal Vaccine 50+ (2 of 2 - PCV) 03/21/2008 03/21/2007 RSV or 60+ (1 - 1-dose 75+ series) 2021 COVID-19 Vaccine (1 - 2023- season) 2023 Wellness Exam Medicare 10/22/2024 10/22/2023 Influenza Vaccine (#1) 2024 0, 01/22/2009, 01/31/2008, Additional history exists Low Dose [...] please contactthe office of the ordering clinician. us Jaiden Dominique MD [facility] CT ORDERABLES Final Result * DX BONE DENSITY AXIAL SKELETON (10/31/2023 1:29 PM EDT) Anatomical Region Laterality Modality Dexa Scan 10/31/2023 Impressions 11/01/2023 3:15 PM EDT Indication: The patient is a female age 65 or older who requires a bone density assessment. Study was performed on [employer]. Bone Density: Region BMD T-score Z-score AP [...] Health Maintenance Insurance HUMANA MEDICARE HMO MR [facility] [address] [facility] [address] HUMANA MEDICARE HMO MR Care Teams Lens Maker Relationship Specialty Start Date End Date Moshe Yuan MD [address] [place] [address] PCP - General Family Medicine 08/17/23
== END 2024-10-16 23:59 | disposition home or self-care (01) ==
LOC: RAD 08:43
PROVIDERS: PCP Internal Medicine; Visit Provider Internal Medicine
DX: K76.0 Fatty (change of) liver, not elsewhere classified (principal); I71.40 Abdominal aortic aneurysm, without rupture, unspecified; R93.422 Abnormal radiologic findings on diagnostic imaging of left kidney; Z90.49 Acquired absence of other specified parts of digestive tract
CPT/HCPCS: 76700

== ENCOUNTER 2024-10-21 10:35 | Outpatient (CLI) | payer MEDICARE, OTHER, SELFPAY ==
--- OUTSIDE RECORDS SUMMARY | 2024-10-21 10:38 | XMS_ITS | Encounter Summary ---
Author Organization [place] [address] Care Team Providers Care Crown Ironer Operator Name Role Phone Moshe Yuan MD Primary Care Provider [phone] Reason for Visit * Reason Onset Date Comments Medication Management 10/03/2024 Hob Machine Operator Port Cdl A Driver: [facility] [phone] Encounter Details Date Type Department Care Team (Late st Contact Info) Description 10/03/2024 Patient Outreach [facility]P [facility] [address] [place] [address] Guillermina Yuan CPhT Medication Management (Hob Machine Operator Port Cdl A Driver: [facility] [phone]/) Social History Tobacco Use Types Packs/Day Years [...] Patient Melvina Rangel was contacted by Clinical Port Cdl A Driver for Care of Older Adult (COA) Comprehensive Medication Review (CMR) and/or Pain/Function question(s). Clinical Intelligence Research Specialist outreaching to patient to attempt to schedule pharmacist appointment for medication review (CMR) ONLY No TIPS at this time This is the FIRST attempt to reach patient. occupational therapy technician unable to reach patient. occupational therapy technician left voice mail with call back number of [phone]. Next outreach by Clinical occupational therapy technician on or around 11/02/24 if applicable. Sent MyChart letter to inform patient that they are eligible to schedule an appointment with the Clinical Pharmacist. Guillermina Yuan CPhT documented in this encounter Plan of Treatment Upcoming Encounters Date Type Department Care Team (Late st Contact Info) Description 10/27/2024 12:00 PM EDT Office Visit [facility] [address] [place] [address] Jaiden Dominique MD [address] [facility] [address] [place] [address] documented as of this encounter [...] documented as of this encounter Care Teams Crown Ironer Operator Relationship Specialty Start Date End Date Moshe Yuan MD [address] [place] [address] PCP - General Family Medicine 08/17/23 documented as of this encounter
--- OUTSIDE RECORDS SUMMARY | 2024-10-21 10:38 | XMS_ITS | Clinical Summary ---
Author Organization Healthcare Address [address] [id number] Care Team Providers Care Magnetic Doctor Name Role Phone Jayla Bowie Primary Care Provider [phone] Social History Tobacco Use Types Packs/Day Years [...] of Treatment Not on file Care Teams Magnetic Doctor Relationship Specialty Start Date End Date Jayla Bowie PA [address] [place] [address] PCP - General 08/27/20
--- OUTSIDE RECORDS SUMMARY | 2024-10-21 10:38 | XMS_ITS | Clinical Summary ---
Author Organization [facility] Address [address] [place] [address] Phone Care Team Providers Care Berry Picker Name Role Phone Moshe Yuan MD Primary Care Provider [phone] Allergies Active Allergy Reactions Criticality Noted Date [...] Overview (12/06/2023): Noted on CT Head from [facility] (scanned in [facility]) - 07/2023 Also noted chronic small [...] Overview (08/17/2023): Dr Shaw Bass -- Cardiology [facility], [place], [place] Assessment & Plan (02/25/2024 2:13 PM EST): Orders: metoprolol (LOPRESSOR) 25 mg Oral Tablet; Take 1 Tablet by mouth daily as needed. metoprolol succinate (TOPROL-XL) 25 mg Oral Tablet Sustained Release 24 hr; Take 1 Tablet by mouth daily. Coronary artery disease invo lving nenana coronary artery of nenana heart without angina pectoris 08/17/2023 Overview (08/17/2023): Dr Shaw Bass -- Cardiology [place], [place] Hypercoagulable state due to paroxysmal atrial f ibrillation 08/17/2023 Cigarette nicotine dependence without complicati on 08/17/2023 Assessment & Plan (08/17/2023 2:43 PM EDT): Advised to quit Essential tremor 08/17/2023 Overview (08/17/2023): Saw Neurology [place] not to be parkinsons Assessment & Plan (02/25/2024 2:13 PM EST): Has been following with Neurology at [facility] ruling out Parkinsons Refer to our group at pts request Orders: metoprolol succinate (TOPROL-XL) 25 mg Oral Tablet Sustained Release 24 hr; Take 1 Tablet by mouth daily. Infrarenal abdominal aortic aneurysm (AAA) witho ut rupture 08/17/2023 Overview (08/17/2023): Cardiothoracic surgery -- Dr Mitchell Nuñez, [place], [place] Assessment & Plan (02/25/2024 2:13 PM EST): Refer to vascular with [facility], she prefers, was seeing [facility] Orders: AMB REFERRAL TO VASCULAR SURGERY [...] Care Team Description 10/03/2024 Patient Outreach [facility] [address] [place] [address] Guillermina Yuan CPhT Medication Management (Practical Nursing Teacher Meat Boner: [facility] [phone]/) from Last 3 Months Immunizations Immunization Administration [...] disease with dys kinesia and fluctuating manifestations ([facility]) 08/17/2023 Abdominal aortic aneurysm (A [...] EDT Office Visit [facility] [address] [place] [address] Jaiden Dominique MD [address] [facility] Building [address] [place] [address] Health Maintenance Due Date Last Done [...] the ordering clinician. us Jaiden Dominique MD [facility] CT ORDERABLES Final Result * DX BONE DENSITY AXIAL SKELETON (10/31/2023 1:29 PM EDT) Anatomical Region Laterality Modality Dexa Scan 10/31/2023 Impressions 11/01/2023 3:15 PM EDT Indication: The patient is a female age 65 or older who requires a bone density assessment. Study was performed on BFKW. Bone Density: Region BMD T-score Z-score AP [...] Health Maintenance Insurance HUMANA MEDICARE HMO MR [facility] [address] [facility] [address] HUMANA MEDICARE HMO MR Care Teams Berry Picker Relationship Specialty Start Date End Date Moshe Yuan MD [address] [place] [address] PCP - General Family Medicine 08/17/23
--- NOTE | 2024-10-21 10:44 | XR_ITS ---
FINAL REPORT CLINICAL HISTORY: Fall, Hip pain COMPARISON: None FINDINGS: RIGHT HIP Two views of the right hip with an AP view of the pelvis demonstrate no acute fracture or dislocation. The joint spaces appear normal. The visualized bony structures are well aligned. No soft tissue abnormality is seen. IMPRESSION: No acute bony abnormality. Reviewed, Interpreted and Dictated by Tanvir Gasca MD Transcribed by Naa Hernandez Authenticated and [facility]
[2024-10-21 13:28] LABS: Microscopic, Urine URINE MICROSCOPIC (MICROSCOPIC)
[2024-10-21 14:11] LABS: Bilirubin,Urine Negative (Negative); Color,Urine YELLOW (Yellow); Glucose,Urine (UA) Negative (Negative); Ketones,Urine Negative (Negative); Leukocyte Esterase,Urine Negative (Negative); PH,Urine 7.0 (5.0-8.5); Protein,Urine Negative (Negative); Specific Gravity, Urine 1.015 (1.005-1.030); Urobilinogen,Urine 0.2 EU/dl (0.2)
[2024-10-21 14:30] LABS: RBC,Urine Occasional #/hpf (0-3); WBC,Urine Occasional #/hpf (0-3)
== END 2024-10-21 23:59 | disposition home or self-care (01) ==
LOC: RAD 10:36
PROVIDERS: PCP Internal Medicine; Visit Provider Internal Medicine
DX: M25.551 Pain in right hip (principal); R10.2 Pelvic and perineal pain; W19.XXXA Unspecified fall, initial encounter
CPT/HCPCS: 73502; 81001; 87086

== ENCOUNTER 2024-12-30 14:31 | Outpatient (CLI) | payer MEDICARE, OTHER, SELFPAY ==
[2024-12-30 17:36] LABS: Hematocrit 40.6 % (37.0-47.0); Hemoglobin 13.1 g/dL (12.2-16.2); Immature Granulocytes % 0.3 %; Mean Corpuscular HGB Conc 32.3 g/dL (31.8-35.4); Mean Corpuscular Hemoglobin 29.9 pg (27.0-31.2); Mean Corpuscular Volume 92.7 fl (81-99); Nucleated Red Blood Cells % 0 %; Platelet Count 151 K/mm3 (142-424); Red Blood Count 4.38 M/mm3 (4.20-5.40); Red Cell Distribution Width-SD 42.7 fL; White Blood Count 7.5 K/mm3 (4.8-10.8)
[2024-12-30 18:00] LABS: Alanine Aminotransferase 15 U/L (12-78); Albumin Level 4.5 g/dl (3.5-5.0); Albumin/Globulin Ratio 1.3 (1.1-1.8); Alkaline Phosphatase 97 U/L (38-126); Anion Gap 13.0 mEq/L (5-15); Aspartate Amino Transferase 31 U/L (14-36); Bilirubin,Total 0.9 mg/dl (0.2-1.3); Blood Urea Nitrogen 8 mg/dl (7-17); Calcium 9.9 mg/dl (8.4-10.2); Carbon Dioxide 29 mmol/L (22.0-30.0); Chloride 101 mmol/L (98-107); Creatinine,Serum 0.70 mg/dl (0.52-1.04); Estimated Glomerular Filt Rate 81 ml/min (>60); GFR (African American) 98 ML/MIN (>60); Globulin 3.5 g/dL (1.3-3.2); Glucose 79 mg/dl (74-100); Potassium 5.0 mmoL/L (3.5-5.1); Sodium 138 mmol/L (136-145); Total Protein,Serum 8.0 g/dl (6.3-8.2)
[2024-12-30 18:30] LABS: Thyroid Stimulating Hormone 2.19 uIU/mL (0.465-4.68)
--- OUTSIDE RECORDS SUMMARY | 2024-12-31 12:38 | XMS_ITS | Clinical Summary ---
Author Organization [facility] Address [address] [place] [address] Care Team Providers Care Pattern Changer And Repairer Name Role Phone Moshe Yuan MD Primary Care Provi cristhian Allergies Active Allergy Reactions Criticality Noted Date Comments Aspirin Palpitations Low 01/27/2016 Headache and insomnia Codeine Nausea Only Low 06/26/2019 Contrast Dye (Echo Or Unknown Ct/Mr) 01/27/2016 Hypotension Other Nausea Only 01/27/2016 Unknown Kidney Pill - headache Peanut-Containing Drug Products Headache 09/19/2021 Medications nitroglycerin (NITROSTAT) 0.[address] under the tongue. 4 Active [place]-3 Fatty Acids (FISH OIL) 1000 MG capsule capsule Take 1 capsule by mouth Daily With Breakfast. Active vitamin E 1000 UNIT capsule Take 1 capsule by mouth Every Night. Active cholecalciferol (VITAMIN D3) 1000 units tablet Take 2 tablets by mouth 2 (Two) Times a Day. Active folic acid (FOLVITE) 1 MG tablet Take 1 tablet by mouth Daily. Active esomeprazole (nexIUM) 40 MG capsule Take 1 capsule by mouth Every Morning Before Breakfast. Active ubrogepant 100 MG tablet 1 tablet As Needed. 2 Active fexofenadine (LINO) 180 MG tablet Take 1 tablet by mouth Daily. Active Diclofenac Sodium (VOLTAREN) 1 % gel gel Apply 4 g topically to the appropriate area as directed As Needed. 3 Active diazePAM (VALIUM) 5 MG tablet 3 Active vitamin B-12 (CYANOCOBALAMIN ) 1000 MCG tablet Take 1 tablet by mouth Daily. Active NON FORMULARY Liver support Ac tive Bystolic 5 MG tablet Take 1 tablet by mouth Daily. 30 tablet 5 4 Active Active Problems Problem Noted Date Diagnosed Date Abdominal aortic aneurysm (AAA) without rupture 09/19/2021 Paroxysmal atrial fibrillation Overview (01/28/2016): Controlled with Tambocor therapy. Patient intolerant to generic flecainide. Hyperlipidemia History of tobacco abuse Migraine headache Irritable bowel syndrome Osteoporosis Left facial numbness Overview (01/28/2016): a. Rule out TIA. b. Reported patent foramen ovale by TTE and contrast bubble study (data deficit). Left arm numbness Overview (01/28/2016): a. Rule out TIA. b. Reported patent foramen ovale by TTE and contrast bubble study (data deficit). Encounters Date Type Department Care Team Description 10/14/[address] [facility] [address] [facility] [address] [place] [address] Shaw Bass MD 10/06/[address] [facility] [address] [facility] [address] [place] [address] Shaw Bass MD Medication Reconciliation from Last 3 Months Immunizations Immunization Administration Dates Next Due Influenza Seasonal Injectable 02/04/2010 ,01/22/2009,01/31/2008,2006 Pneumococcal Polysaccharide (PPSV23) 03/21/2007 Tdap 10/05/2022 Family History Medical History Relation Name Comments Diabetes Brother 1 Cancer Father Heart attack Father Heart murmur Father Arrhythmia Mother Cancer Sister 1 Diabetes Sister 3 Relation Name Status Comments Brother 1 Brother 2 Alive Brother 3 Alive Brother 4 Alive Brother 5 Alive Father Mother Sister 1 Sister 2 Sister 3 Social History Tobacco Use Types Packs/Day Years Used Date Smoking Tobacco: Every Day Cigarettes 1 60 Smokeless Tobacco: Never Alcohol Use Standard Drinks/Week Comments No 0 (1 standard drink = 0.6 oz pur e alcohol) Abuse Screen Answer Date Recorded Unsafe at Home or Work/School Not on file Feels Threatened by Someone? Not on file 03/2023 Does Anyone Keep You from Co ntacting Others or Doint Things Outside the Home? Not on file 02/25/2023 Physical Sign of Abuse Present Not on file 1 04/27/2022 Housing Stability Answer Date Recorded Current Living Arrangements Not on file 01/14 Potentially Unsafe Housing Conditions Not on riddhi e 01/24/2023 Family and Community Support Answer Bimal e Recorded Help with Day-to-Day Activities Not on file 01/24/2023 Lonely or Isolated Not on file 01/24/2023 Employment Answer Date Recorded Do you want help finding or keeping work or a frandy b? Not on file 01/24/2023 Disabilities Answer Date Recorded Concentrating, Remembering, or Making Decisions Difficulty Not on file 01/24/2023 Doing Errands Independently Difficulty Not on fi le 01/24/2023 Education Answer Date Recorded Help with school or training? 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 Not on file Not on file Not on file Last Filed Vital Signs Vital Sign Reading Time Taken Comments Blood Pressure 110/60 03/07/2023 1:07 PM EST Pulse 84 03/07/2023 1:07 PM EST Temperature 36.1 C (96.9 F) 09/21/2022 1:57 PM EDT Respiratory Rate 16 02/05/2022 1:38 PM EDT Oxygen Saturation 97% 03/07/2023 1:07 PM EST Inhaled Oxygen Concentration - - Weight 56.7 kg (125 lb) 03/07/2023 1:07 PM EST Height 154.9 cm (5' 1 ) 03/07/2023 1:07 PM EST Body Mass Index 23.62 03/07/2023 1:07 PM EST Plan of Treatment Health Maintenance Due Date Last Done Comments DXA SCAN 1945 COLOGUARD 12/16/1991 COLON CANCER SCREENING 5 BROOKE Mccall SIGMOIDOSCOPY 12/16/1991 COLONOSCOPY 12/16/1991 CT COLONOGRAPHY 12/16/1991 FIT Testing (1 year) 12/16/1991 ZOSTER VACCINE (1 of 2) 1996 Pneumococcal Vaccine 50+ (2 of 2 - PCV) 03/21/2008 03/21/2007 COLORECTAL CANCER SCREENING 12/19/2014 FECAL OCCULT BLOOD TEST 12/19/2014 12/19/2013 ANNUAL WELLNESS VISIT 05/08/2017 12/19/2013 LIPID PANEL 02/22/2021 02/23/2020, 07/16, 05/01/2018, Additional history exists RSV Vaccine - Adults (1 - 1- dose 75+ series) 2021 COVID-19 Vaccine (1 - 2023-2 5 season) 2024 INFLUENZA VACCINE 01/14/2025 02/04/2010, , 01/31/2008, Additional history exists TDAP/TD VACCINES (2 - Td or Tdap) 10/05/2032 023 HEPATITIS C SCREENING Completed 07/12/2015 Insurance [facility] HUMANA MEDICARE ADVANTAGE SNP HMO Care Teams Pattern Changer And Repairer Relationship Specialty Start Date End Date Moshe Yuan MD [address] [place] [address] PCP - General Family Medicine 05/06/24
--- OUTSIDE RECORDS SUMMARY | 2024-12-31 12:39 | XMS_ITS | Clinical Summary ---
Author Organization [facility] Address [address] [place] [address] Phone Care Team Providers Care Health Promotion Manager Name Role Phone Moshe Yuan MD Primary Care Provider [phone] Allergies Active Allergy Reactions Criticality Noted Date [...] PAIN. 25 Tablet 2 10/19/19 24 Active diclofenac (VOLTAREN) 1 % Top GelIndications:Mignon saxena osteoarthritis of shoulders, bilateral,DDD (degenerative disc disease), cervical,Degenerat ion of intervertebral disc of lumbar region with discogenic back pain and lower extremity pain Apply 4 g topically 4 times daily. 450 g 3 02/25/20 24 Active ubrogepant (UBRELVY) 100 mg [...] not take the medication, Reported on 07/01/2024 metoprolol (LOPRESSOR) 25 mg Oral TabletIndications: Paroxysmal A-fib (HCC) TAKE 1 TABLET BY MOUTH ONCE DAILY NEEDED 30 Tablet 10/25/19 25 Active metoprolol succinate (TOPROL-XL) 25 mg Oral Tablet Sustained Release 24 hrIndications:Paro xysmal A-fib (HCC),Essential hypertension,Essen tial tremor Take 1 tablet by mouth once daily 30 Tablet 10/25/19 25 Active clopidogreL (PLAVIX) 75 mg Oral TabletIndications: Carotid stenosis, bilateral,Hx of arterial ischemic stroke Take 1 tablet by mouth once daily 30 Tablet 11/06/19 25 Active Active Problems Problem Noted Date Diagnosed [...] Overview (12/06/2023): Noted on CT Head from [facility] (scanned in [facility]) - 07/2023 Also noted chronic small [...] Overview (08/17/2023): Dr Shaw Bass -- Cardiology [facility], [place], [place] Assessment & Plan (02/25/2024 2:13 PM EST): Orders: metoprolol (LOPRESSOR) 25 mg Oral Tablet; Take 1 Tablet by mouth daily as needed. metoprolol succinate (TOPROL-XL) 25 mg Oral Tablet Sustained Release 24 hr; Take 1 Tablet by mouth daily. Coronary artery disease invo lving [place] coronary artery of [place] heart without angina pectoris 08/17/2023 Overview (08/17/2023): Dr Shaw Bass -- Cardiology [place], [place] Hypercoagulable state due to paroxysmal atrial f ibrillation 08/17/2023 Cigarette nicotine dependence without complicati on 08/17/2023 Assessment & Plan (08/17/2023 2:43 PM EDT): Advised to quit Essential tremor 08/17/2023 Overview (08/17/2023): Saw Neurology [place] not to be parkinsons Assessment & Plan (02/25/2024 2:13 PM EST): Has been following with Neurology at [facility] ruling out Parkinsons Refer to our group at pts request Orders: metoprolol succinate (TOPROL-XL) 25 mg Oral Tablet Sustained Release 24 hr; Take 1 Tablet by mouth daily. Infrarenal abdominal aortic aneurysm (AAA) witho ut rupture 08/17/2023 Overview (08/17/2023): Cardiothoracic surgery -- Dr Mitchell Nuñez, [place], [place] Assessment & Plan (02/25/2024 2:13 PM EST): Refer to vascular with [facility], she prefers, was seeing [facility] Orders: AMB REFERRAL TO VASCULAR SURGERY [...] Encounters Date Type Department Care Team Description 12/25/2024 Telephone [facility] Pulmonology [facility] [address] [address] Jaiden Dominique MD Other; Paperwork/forms 11/03/2024 Refill [facility] [address] [place] [address] Moshe Yuan MD Medication Refill 11/03/2024 Orders Only [facility] [address] [place] [address] Moshe Yuan MD 10/22/2024 Refill [facility] [address] [place] [address] Moshe Yuan MD Medication Refill 10/03/2024 Patient Outreach [facility] [address] [place] [address] Guillermina Yuan, Rex Medication Management (Forging Machine Operator Glueline Worker: [facility] [phone]/) from Last 3 Months Immunizations Immunization Administration [...] state due to paroxysmal atrial f ibrillation ([facility]) 08/17/2023 Parkinson's disease with dys kinesia and fluctuating manifestations ([facility]) 08/17/2023 Abdominal aortic aneurysm (A AA) 3.0 cm to 5.0 cm in diameter in female 08/17/2023 Kidney cysts Social History Tobacco Use Types Packs/Day Years Used Date Smoking Tobacco: Every Day Cigarettes 1 64.7 Started: [birth year]/16/1960 Passive Smoke Exposure: Never Smokeless [...] 07/01/2024 9:48 AM EDT Plan of Treatment Health Maintenance Due Date Last Done Comments Hepatitis C Screening 1963 Zoster (1 of 2) 1996 Pneumococcal Vaccine 50+ (2 of 2 - PCV) 03/21/2008 03/21/2007 RSV or 60+ (1 - 1-dose 75+ series) 2021 Wellness Exam Medicare 10/22/2024 10/22/2023 COVID-19 Vaccine ( season) 2024 Influenza Vaccine (#1) 2024 0, 01/22/2009, 01/31/2008, [...] of the ordering clinician. Jaiden Dominique MD [facility] CT ORDERABLES Final Result * DX BONE DENSITY AXIAL SKELETON (10/31/2023 1:29 PM EDT) Anatomical Region Laterality Modality Dexa Scan 10/31/2023 Impressions 11/01/2023 3:15 PM EDT Indication: The patient is a female age 65 or older who requires a bone density assessment. Study was performed on [employer] 5. Bone Density: Region BMD T-score Z-score AP [...] 10/31/2023 2:03:00 PM. us Moshe Yuan MD IMRocael DEXA ORDERABLES Final Res ult from Last 3 Months or Most Recently Relevant to Health Maintenance Insurance HUMANA MEDICARE HMO MR [facility] [address] [facility] [address] HUMANA MEDICARE HMO MR Care Teams Health Promotion Manager Relationship Specialty Start Date End Date Moshe Yuan MD [address] [facility] [place] [address] PCP - General Family Medicine 08/17/23
--- OUTSIDE RECORDS SUMMARY | 2024-12-31 12:39 | XMS_ITS | Encounter Summary ---
Author Organization [facility] [place] [address] Care Team Providers Care Cryptographic Machine Operator Name Role Phone Moshe Yuan MD Primary Care Provider [phone] Encounter Details Date Type Department Care Team (Late st Contact Info) Description 11/03/2024 Orders Only [facility] [address] [facility] [place] [address] Moshe Yuan MD [address] [place] [address] Social History Tobacco Use Types Packs/Day Years [...] Assessment Author No 08/17/2023 2:25 PM EDT Sanotsh Nelson MA documented as of this encounter Mental Status * Because of a physical, mental or emotional condition, does this person have serious difficulty concentrating, remembering or making decisions? Answer Entry Date Author No 08/17/2023 2:25 PM EDT Santosh Nelson MA documented in this encounter Plan of Treatment Not on file documented as of this encounter Goals Goal [...] documented as of this encounter Care Teams Cryptographic Machine Operator Relationship Specialty Start Date End Date Moshe Yuan MD [address] [place] [address] PCP - General Family Medicine 08/17/23 documented as of this encounter
--- OUTSIDE RECORDS SUMMARY | 2024-12-31 12:39 | XMS_ITS | Clinical Summary ---
Author Organization [facility] Address [address] [id number] Care Team Providers Care Chef Kitchen Manager Name Role Phone Jayla Bowie Primary Care Provider [phone] Social History Tobacco Use Types Packs/Day Years [...] of Treatment Not on file Care Teams Chef Kitchen Manager Relationship Specialty Start Date End Date Jayla Bowie PA [address] [place] [address] PCP - General 08/27/20
--- OUTSIDE RECORDS SUMMARY | 2024-12-31 12:39 | XMS_ITS | Encounter Summary ---
Author Organization [place] [address] Care Team Providers Care Pipe Threader Name Role Phone Moshe Yuan MD Primary Care Provider [phone] Reason for Visit * Reason Comments Medication Refill Encounter Details Date Type Department Care Team (Late st Contact Info) Description 11/03/2024 Refill [facility] [address] [place] [address] Moshe Yuan MD [address] [place] [address] Medication Refill Social History Tobacco Use Types Packs/Day Years [...] Santosh Nelson MA documented in this encounter Ordered Prescriptions Prescription Sig Dispense Quantity Refills Last Filled Start Date End Date clopidogreL (PLAVIX) 75 mg Oral TabletIndications:C arotid stenosis, bilateral,Hx of arterial ischemic stroke Take 1 tablet by mouth once daily 30 Tablet 11/05/2024 documented in this encounter Plan of Treatment Not on file documented as of this encounter Goals Goal Patient Goal Type Associated Problems Recent Progress Patient-Stated? Author Blood Pressure < 140/90 Blood Pressure 120/70(2024 9:48 AM EDT) Moshe Fung MD Maintain a healthy diet, exercise regularly and maintain an ideal body weight General Moshe Fung MD Stay Tobacco Free Lifestyle Thang Edmondson MA documented as of this encounter Visit Diagnoses Diagnosis Carotid stenosis, bilateral Occlusion and stenosis of multiple and bilateral precerebral arteries without mention of cerebral infarction Hx of arterial ischemic stroke Transient ischemic attack (TIA), and cerebral infarction without residual deficits documented in this encounter Discontinued Medications Medication Sig Discontinue Reason Start Date End Da te clopidogreL (PLAVIX) 75 mg Oral TabletIndications:Caroti d stenosis, bilateral,Hx of arterial ischemic stroke Take 1 Tablet by mouth daily. 02/25/2024 11/05/2024 documented as of this encounter Additional Health Concerns Assessment Noted Time A fall risk assessment has been complete d for the patient 08/17/2023 2:26 PM EDT documented as of this encounter Care Teams Pipe Threader Relationship Specialty Start Date End Date Moshe Yuan MD [address] [place] [address] PCP - General Family Medicine 08/17/23 documented as of this encounter
--- OUTSIDE RECORDS SUMMARY | 2024-12-31 12:39 | XMS_ITS | Encounter Summary ---
Author Organization [place] [address] Care Team Providers Care Testing Lead Name Role Phone Moshe Yuan MD Primary Care Provider [phone] Reason for Visit * Reason Onset Date Comments Other 12/25/2024 Paperwork/forms 12/25/2024 Encounter Details Date Type Department Care Team (Late st Contact Info) Description 12/25/2024 Telephone [facility] Pulmonology [facility] [address] [address] Jaiden Dominique MD [address] [address] Other; Paperwork/forms Social History Tobacco Use Types Packs/Day Years [...] Santosh Nelson MA documented in this encounter Miscellaneous Notes * Telephone Encounter - Dyana Gamez MA - 12/25/2024 3:12 PM EDT They said to disregard * Telephone Encounter - Dyana Gamez MA - 12/25/2024 3:11 PM EDT We did not do any kind of testing on 07/24-- this is not us * Telephone Encounter - Yudy Jiménez - 12/25/2024 12:27 PM EDT [facility] calling because the pt received a bill for the thoracic scan in July but they said they need authorization for that testing call back: [phone] fax: [phone] thanks documented in this encounter Plan of Treatment [...] documented as of this encounter Care Teams Testing Lead Relationship Specialty Start Date End Date Moshe Yuan MD [address] [place] [address] PCP - General Family Medicine 08/17/23 documented as of this encounter
== END 2024-12-30 23:59 ==
LOC: LAB.DROPOF 12-31 12:36
PROVIDERS: PCP Obstetrics & Gynecology; Visit Provider Obstetrics & Gynecology
DX: G47.9 Sleep disorder, unspecified (principal); E78.5 Hyperlipidemia, unspecified; I25.10 Atherosclerotic heart disease of native coronary artery without angina pectoris; I10 Essential (primary) hypertension; Z92.29 Personal history of other drug therapy
CPT/HCPCS: 80053; 84443; 85025

== ENCOUNTER 2025-01-30 13:41 | Outpatient (CLI) | payer MEDICARE, OTHER, SELFPAY | END 2025-01-30 23:59 | disposition home or self-care (01) | LOC: LAB.DROPOF 01-31 13:41 | PROVIDERS: PCP Internal Medicine; Visit Provider Internal Medicine | DX: R39.9 Unspecified symptoms and signs involving the genitourinary system (principal) | CPT/HCPCS: 87086; 87088; 87186 ==

== ENCOUNTER 2025-02-19 14:25 | Outpatient (CLI) | payer MEDICARE, OTHER, SELFPAY ==
--- OUTSIDE RECORDS SUMMARY | 2025-02-19 14:27 | XMS_ITS | Clinical Summary ---
Author Organization [facility] Address [address] [id number] Care Team Providers Care Grain Elevator Operator Name Role Phone Jayla Bowie Primary Care Provider [phone] Social History Tobacco Use Types Packs/Day Years [...] of Treatment Not on file Care Teams Grain Elevator Operator Relationship Specialty Start Date End Date Jayla Bowie PA [address] [place] [address] PCP - General 08/27/20
--- OUTSIDE RECORDS SUMMARY | 2025-02-19 14:27 | XMS_ITS | Data Portability ---
Author Organization [place] [facility] Address [address] [place] [address] Assessment No assessment recorded. Plan of Treatment [...] By Organization Details Last Modified Time 01/10/2022 [id number] 1-Fit with Unitron Moxi B1 RODRICK hearnig [...] Diagnosis SNOMED-CT Code Diagnosis ICD10 Code Diagnosis IMO Codes Diagnosis Note [id number] PAU FLEMING [facility] [id number] [facility] [address] 01/10/2022 16:14:49 01/10/2022 16:38:54 Sensorineural hearing loss [id number] H90.3 Health Concerns Section Related Observation LastModified by Organization Detai ls LastModified Time None Recorded Concern Status LastModified by Organization Details LastModified Time None Recorded Advance Directives Directive None Recorded Payers Insurance Date Sequence Insurance Name Policy Number Policy Juarez Covered Member ID Juarez Member ID Guarantor Name 01/07/2022 1 [place] [employer] OF [facility] MED[facility]UE [employer] (MEDICARE REPLACEMENT HMO) [id number] Melvina Rangel [id number] Melvina Rangel 07/11/2022 [employer] Melvina Rangel Notes Date Note Type Note Provider Name and Address Organization Details Recorded Time 01/10/2022 text/html DizzinessReporte d by Patient Hearing Loss - AdultReported by PatientROS as noted in the HPI Ms. Rangel was seen today for a hearing aid fitting via [facility]. PAU FLEMING [address] [facility], [place], [address], [facility] [place] [facility] [place] 01/10/2022 16:38:07 OBGyn Episode No OBEpisode recorded.
--- OUTSIDE RECORDS SUMMARY | 2025-02-19 14:27 | XMS_ITS | Clinical Summary ---
Author Organization [facility] Address [address] [place] [address] Phone Care Team Providers Care Strap Making Machine Operator Name Role Phone Moshe Yuan MD Primary Care Provider [phone] Allergies Active Allergy Reactions Criticality Noted Date [...] Overview (12/06/2023): Noted on CT Head from [facility] (scanned in [facility]) - 07/2023 Also noted chronic [...] Overview (08/17/2023): Dr Shaw Bass -- Cardiology [facility], [place], [place] Assessment & Plan (02/25/2024 2:13 PM EST): Orders: metoprolol (LOPRESSOR) 25 mg Oral Tablet; Take 1 Tablet by mouth daily as needed. metoprolol succinate (TOPROL-XL) 25 mg Oral Tablet Sustained Release 24 hr; Take 1 Tablet by mouth daily. Coronary artery disease invo lving [place] coronary artery of [place] heart without angina pectoris 08/17/2023 Overview (08/17/2023): Dr Shaw Bass -- Cardiology [place], [place] Hypercoagulable state due to paroxysmal atrial f ibrillation 08/17/2023 Cigarette nicotine dependence without complicati on 08/17/2023 Assessment & Plan (08/17/2023 2:43 PM EDT): Advised to quit Essential tremor 08/17/2023 Overview (08/17/2023): Saw Neurology [place] not to be parkinsons Assessment & Plan (02/25/2024 2:13 PM EST): Has been following with Neurology at [facility] ruling out Parkinsons Refer to our group at pts request Orders: metoprolol succinate (TOPROL-XL) 25 mg Oral Tablet Sustained Release 24 hr; Take 1 Tablet by mouth daily. Infrarenal abdominal aortic aneurysm (AAA) witho ut rupture 08/17/2023 Overview (08/17/2023): Cardiothoracic surgery -- Dr Mitchell Nuñez, [place], [place] Assessment & Plan (02/25/2024 2:13 PM EST): Refer to vascular with [facility], she prefers, was seeing [facility] Orders: AMB REFERRAL TO VASCULAR SURGERY Osteoporosis [...] Care Team Description 12/25/2024 Telephone [facility] Pulmonology [facility] [address] [address] Jaiden Dominique MD Other; Paperwork/forms from Last 3 Months Immunizations Immunization Administration [...] disease with dys kinesia and fluctuating manifestations (HCC) 08/17/2023 Abdominal aortic aneurysm (A AA) 3.0 cm to 5.0 cm in diameter in female 08/17/2023 Kidney cysts Social History Tobacco Use Types Packs/Day Years Used Date Smoking Tobacco: Every Day Cigarettes 1 64.8 Started: [birth year]16/1959 Passive Smoke Exposure: Never Smokeless [...] Wellness Exam Medicare 10/22/2024 10/22/2023 COVID-19 Vaccine (1 - season) 2024 Influenza Vaccine (#1) 2024 0, [...] an ideal body weight General No Moshe Yuna MD Stay Tobacco Free Lifestyle No Thang [...] the ordering clinician. us Jaiden Dominique MD IMG CT ORDERABLES Final Result * DX BONE DENSITY AXIAL SKELETON (10/31/2023 1:29 PM EDT) Anatomical Region Laterality Modality Dexa Scan 10/31/2023 Impressions 11/01/2023 3:15 PM EDT Indication: The patient is a female age 65 or older who requires a bone density assessment. Study was performed on [employer] 5. Bone Density: Region BMD T-score Z-score [...] Health Maintenance Insurance HUMANA MEDICARE HMO MR [facility] [address] [facility] [address] HU[employer]NA MEDICARE HMO MR Care Teams Strap Making Machine Operator Relationship Specialty Start Date End Date Moshe Yuan MD [address] [place] [phone] PCP - General Family Medicine 08/17/23
--- OUTSIDE RECORDS SUMMARY | 2025-02-19 14:27 | XMS_ITS | Clinical Summary ---
[facility] Address [address] [place] [address] Care Team Providers Care Tire Man Name Role Phone Moshe Yuan MD Primary [...] tablet Place under the tongue. 4 Active [place]-3 Fatty Acids (FISH OIL) 1000 MG capsule [...] TTE and contrast bubble study (data deficit). 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 on file Not [...] Date Last Done Comments DXA SCAN 1946 COVID-19 Vaccine (#1) 12[birth year]16/1950 COLOGUARD 12/16/1991 COLON CANCER SCREENING 5 YEA R SIGMOIDOSCOPY 12/16/1991 COLONOSCOPY 12/16/1991 CT COLONOGRAPHY 12/16/1991 FIT Testing (1 year) 12/16/1991 ZOSTER VACCINE (1 of 2) 1996 Pneumococcal Vaccine 50+ (2 of 2 - PCV) 03/21/2008 03/21/2007 COLORECTAL CANCER SCREENING 12/19/2014 FECAL OCCULT BLOOD TEST 12/19/2014 12/19/2013 ANNUAL WELLNESS VISIT 05/08/2017 12/19/2013 LIPID PANEL 02/22/2021 02/23/2020, 042 06/2019, 05/01/2018, Additional history exists RSV Vaccine - Adults (1 - 1- dose 75+ series) 2021 INFLUENZA VACCINE 11/14/2024 02/04/2010, , 01/31/2008, Additional history exists TDAP/TD VACCINES (2 - Td or Tdap) 10/05/2032 023 HEPATITIS C SCREENING Completed 07/12/2015 Insurance [facility] [employer]NA [facility]ICARE [facility] Care Teams Tire Man Relationship Specialty Start Date End Date Moshe Yuan MD [address] [place] [address] PCP - General Family Medicine 05/06/24
--- OUTSIDE RECORDS SUMMARY | 2025-02-19 14:27 | XMS_ITS | Encounter Summary ---
Author Organization [place] [address] Care Team Providers Care Health Systems Analyst Name Role Phone Moshe Yuan MD Primary Care Provider Reason for Visit * Reason Onset Date Comments Other 12/25/2024 Paperwork/forms 12/25/2024 Encounter Details Date Type Department Care Team (Late st Contact Info) Description 12/25/2024 Telephone [facility] Pulmonology [facility] [address] [address] Jaiden Dominique MD [address] [address] Other; Paperwork/forms Social History Tobacco [...] need authorization for that testing call back: [phone] fax: [phone] thanks documented in this encounter Plan of [...] documented as of this encounter Care Teams Health Systems Analyst Relationship Specialty Start Date End Date Moshe Yuan MD [address] [place] [id number] PCP - General Family Medicine 08/17/23 documented as of this encounter
[2025-02-19 15:36] LABS: Hematocrit 39.6 % (37.0-47.0); Hemoglobin 13.3 g/dL (12.2-16.2); Immature Granulocytes % 0.3 %; Mean Corpuscular HGB Conc 33.6 g/dL (31.8-35.4); Mean Corpuscular Hemoglobin 30.7 pg (27.0-31.2); Mean Corpuscular Volume 91.5 fl (81-99); Nucleated Red Blood Cells % 0 %; Platelet Count 197 K/mm3 (142-424); Red Blood Count 4.33 M/mm3 (4.20-5.40); Red Cell Distribution Width-SD 42.5 fL; White Blood Count 7.5 K/mm3 (4.8-10.8)
[2025-02-19 16:36] LABS: Albumin Level 4.6 g/dl (3.5-5.0); Chloride 101 mmol/L (98-107); Potassium 4.6 mmoL/L (3.5-5.1); Sodium 138 mmol/L (136-145)
[2025-02-19 16:38] LABS: Bilirubin,Unconjugated 0.4 mg/dL (0.0-1.1); Blood Urea Nitrogen 9 mg/dl (7-17); Creatinine,Serum 0.80 mg/dl (0.52-1.04); Estimated Glomerular Filt Rate 69 ml/min (>60); GFR (African American) 84 ML/MIN (>60)
[2025-02-19 16:39] LABS: Alanine Aminotransferase 13 U/L (12-78); Alkaline Phosphatase 101 U/L (38-126); Anion Gap 11.6 mEq/L (5-15); Aspartate Amino Transferase 30 U/L (14-36); Bilirubin,Direct 0.3 mg/dl (0.0-0.4); Bilirubin,Indirect 0.4 mg/dL (0.0-0.9); Bilirubin,Total 0.7 mg/dl (0.2-1.3); Calcium 9.2 mg/dl (8.4-10.2); Carbon Dioxide 30 mmol/L (22.0-30.0); Cholesterol 127 mg/dl (140-200); Glucose 113 mg/dl (74-100); HDL Cholesterol 40 mg/dl (40-60); Magnesium 1.4 mg/dl (1.6-2.3); Total Protein,Serum 7.4 g/dl (6.3-8.2); Triglycerides 262 mg/dl (30-150)
[2025-02-19 16:54] LABS: Free T4 (Free Thyroxine) 1.07 ng/dl (0.78-2.19)
[2025-02-19 17:09] LABS: Thyroid Stimulating Hormone 1.72 uIU/mL (0.465-4.68)
== END 2025-02-19 23:59 | disposition home or self-care (01) ==
PROVIDERS: PCP Internal Medicine; Visit Provider Nurse Practitioner
DX: I11.0 Hypertensive heart disease with heart failure (principal); I50.30 Unspecified diastolic (congestive) heart failure; I25.10 Atherosclerotic heart disease of native coronary artery without angina pectoris; I48.0 Paroxysmal atrial fibrillation; E78.5 Hyperlipidemia, unspecified; N39.0 Urinary tract infection, site not specified
CPT/HCPCS: 36415; 80048; 80061; 80076; 83735; 84439; 84443; 85025; 87086; 93225; 93227

== ENCOUNTER 2025-02-23 11:07 | Outpatient (CLI) | payer MEDICARE, OTHER, SELFPAY ==
--- OUTSIDE RECORDS SUMMARY | 2025-02-23 11:23 | XMS_ITS | Encounter Summary ---
Author Organization [place] [address] Care Team Providers Care Nursing Officer Name Role Phone Moshe Yuan MD Primary Care Provider [phone] Reason for Visit * Reason Onset Date Comments Other 12/25/2024 Paperwork/forms 12/25/2024 Encounter Details Date Type Department Care Team (Late st Contact Info) Description 12/25/2024 Telephone SE[facility] Pulmonology [facility] [address] [address] Jaiden Dominique MD [address] [address] Other; Paperwork/forms Social History Tobacco Use Types Packs/Day Years Used Date Smoking Tobacco: Every Day Cigarettes 1 64.9 Started: 04/16/1960 Passive Smoke Exposure: Never Smokeless [...] need authorization for that testing call back: [phone] fax: [phone] thanks documented in this encounter Plan of [...] documented as of this encounter Care Teams Nursing Officer Relationship Specialty Start Date End Date Moshe Yuan MD [address] [place] [id number] PCP - General Family Medicine 08/17/23 documented as of this encounter
--- OUTSIDE RECORDS SUMMARY | 2025-02-23 11:23 | XMS_ITS | Clinical Summary ---
Author Organization [facility] Address [address] [id number] Care Team Providers Care Nutrition Tech Name Role Phone Jayla Bowie Primary Care Provider [phone] Social History Tobacco Use Types Packs/Day Years [...] of Treatment Not on file Care Teams Nutrition Tech Relationship Specialty Start Date End Date Jayla Bowie PA [address] [place] [address] PCP - General 08/27/20
--- OUTSIDE RECORDS SUMMARY | 2025-02-23 11:23 | XMS_ITS | Clinical Summary ---
Author Organization [facility] Address [address] [place] [address] Phone Care Team Providers Care Wool Buyer Name Role Phone Moshe Yuan MD Primary Care Provider [phone] Allergies Active Allergy Reactions Criticality Noted Date [...] Overview (12/06/2023): Noted on CT Head from [facility] (scanned in [facility]) - 07/2023 Also noted chronic small [...] Dr Shaw Bass -- Cardiology [facility], [place], [place] Assessment & Plan (02/25/2024 2:13 PM EST): Orders: metoprolol (LOPRESSOR) 25 mg Oral Tablet; Take 1 Tablet by mouth daily as needed. metoprolol succinate (TOPROL-XL) 25 mg Oral Tablet Sustained Release 24 hr; Take 1 Tablet by mouth daily. Coronary artery disease invo lving [place] coronary artery of [place] heart without angina pectoris 08/17/2023 Overview (08/17/2023): Dr Shaw Bass -- Cardiology [place], [place] Hypercoagulable state due to paroxysmal atrial f ibrillation 08/17/2023 Cigarette nicotine dependence without complicati on 08/17/2023 Assessment & Plan (08/17/2023 2:43 PM EDT): Advised to quit Essential tremor 08/17/2023 Overview (08/17/2023): Saw Neurology [place] not to be parkinsons Assessment & Plan (02/25/2024 2:13 PM EST): Has been following with Neurology at [facility] ruling out Parkinsons Refer to our group at pts request Orders: metoprolol succinate (TOPROL-XL) 25 mg Oral Tablet Sustained Release 24 hr; Take 1 Tablet by mouth daily. Infrarenal abdominal aortic aneurysm (AAA) witho ut rupture 08/17/2023 Overview (08/17/2023): Cardiothoracic surgery -- Dr Mitchell Nuñez, [place], [place] Assessment & Plan (02/25/2024 2:13 PM [...] Care Team Description 12/25/2024 Telephone SE[facility] Pulmonology [facility] [address] [address] Jaiden Dominique MD Other; Paperwork/forms [...] bone density assessment. Study was performed on [employer] 5. Bone Density: Region BMD T-score Z-score [...] Health Maintenance Insurance HUMANA MEDICARE HMO MR [facility] [address] [facility] [address] HUMANA MEDICARE HMO MR Care Teams Wool Buyer Relationship Specialty Start Date End Date Moshe Yuan MD [address] [place] [phone] PCP - General Family Medicine 08/17/23
--- OUTSIDE RECORDS SUMMARY | 2025-02-23 11:23 | XMS_ITS | Clinical Summary ---
[facility] Address [address] [place] [address] Care Team Providers Care Senior Catering Sales Manager Name Role Phone Moshe Yuan MD [...] tablet Place under the tongue. 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 HMO Care Teams Senior Catering Sales Manager Relationship Specialty Start Date End Date Moshe Yuan MD [address] [place] [address] PCP - General Family Medicine 05/06/24
== END 2025-02-23 23:59 | disposition home or self-care (01) ==
LOC: RT 11:08
PROVIDERS: PCP Internal Medicine; Visit Provider Nurse Practitioner
DX: I49.1 Atrial premature depolarization (principal); I47.19 Other supraventricular tachycardia; I49.3 Ventricular premature depolarization; I48.0 Paroxysmal atrial fibrillation; I11.0 Hypertensive heart disease with heart failure; I50.30 Unspecified diastolic (congestive) heart failure; I25.10 Atherosclerotic heart disease of native coronary artery without angina pectoris; E78.5 Hyperlipidemia, unspecified
CPT/HCPCS: 93270

== ENCOUNTER 2025-02-27 11:15 | Outpatient (CLI) | payer MEDICARE, OTHER, SELFPAY ==
--- NOTE | 2025-02-27 11:15 | CA_ITS ---
APPROVED REPORT EXAM: Comprehensive 2D, Doppler, and color-flow Echocardiogram [employer] Attendant: ALEC Johnson, RVS Ht: 5 ft 1 in Wt: 120lbs BSA: 1.52 BP: 131/75 mmHg Indications: Diastolic dysfunction, Afib, HFpEF, COPD, AAA 2D Dimensions Left Atrium 2.69 cm F: 2.7 - 3.8 LA Volume 34.70 mL LA Volume Index 22.83 mL/m2 (M/F) 16-34 M-Mode Dimensions RVDd 2.31 cm (0.9-2.6) LA Diam 2.62 cm (1.9-4.0) LVDd 4.29 cm (3.5-5.7) LVDs 2.68 cm (3.5-5.7) IVSd 0.77 cm (0.6-1.1) PWd 0.77 cm (0.6-1.1) EF (Teich) 67.90% EPSs 0.37 cm FS 37.50% EDV (Teich) 82.60 mL TAPSE 1.79 (<1.7) ESV (Teich) 26.50 mL LV Diastology E Decel Time 260 (160-240 msec) E/A Ratio 0.62 MED A' 10.20 cm/s LAT A' 8.30 cm/s Aortic Valve COLE Index 1.12 cm2/m2 AoV Peak Jeffery. 122.0 (50-130 cm/s) AO Peak GR. 6.00 mmHg AO Mean GR. 3.00 (<5 mmHg) AO VTI 23.8 (18-25 cm) COLE (VTI) 1.74 (2.5-4.5 cm2) Mitral Valve MV A Velocity 88.0 (40-130 cm/s) E/A Ratio 0.62 Left Ventricle The left ventricle is normal size. Left ventricular systolic function is normal. The left ventricular ejection fraction is within the normal range. There is increased left ventricular wall thickness. There is normal LV segmental wall motion. Transmitral Doppler flow pattern suggests impaired LV relaxation. LVEF is 55% Right Ventricle The right ventricle is normal size. The right ventricular systolic function is normal. Atria Left atrium is mildly dilated. Right atrium is mildly dilated. There is no color Doppler evidence of interatrial shunt. Aortic Valve The aortic valve is mildly thickened. There is no hemodynamically significant aortic valvular stenosis. Trace aortic regurgitation is present. Mitral Valve The mitral valve is normal in structure. No evidence of mitral valve stenosis. Trace mitral regurgitation is present. Tricuspid Valve The tricuspid valve leaflets are thin and pliable. Trace tricuspid regurgitation. There is insufficient TR jet to estimate RVSP. Pulmonic Valve The pulmonary valve is grossly normal in structure. Trace pulmonic valve regurgitation is present. Great Vessels The aortic root is normal in size. IVC is normal in size and collapses >50% with inspiration. Pericardium There is no pericardial effusion. Other Information Study Quality: Fair Conclusion Normal biventricular systolic function. Mild biatrial dilation. No significant valvular stenosis or regurgitation. Electronically signed by : Shae Welch MD 03/05/2025 13:08:44
--- OUTSIDE RECORDS SUMMARY | 2025-02-27 11:20 | XMS_ITS | Clinical Summary ---
Author Organization [facility] Address [address] [id number] Care Team Providers Care Lawyer Probate Name Role Phone Jayla Bowie Primary Care Provider Social History Tobacco Use Types Packs/Day Years [...] of Treatment Not on file Care Teams Lawyer Probate Relationship Specialty Start Date End Date Jayla Bowie PA [address] [place] [address] PCP - General 08/27/20
--- OUTSIDE RECORDS SUMMARY | 2025-02-27 11:20 | XMS_ITS | Clinical Summary ---
[facility] Address [address] [place] [address] Care Team Providers Care Process Artist Name Role Phone Moshe Yuan MD Primary [...] tablet Place under the tongue. 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
--- OUTSIDE RECORDS SUMMARY | 2025-02-27 11:20 | XMS_ITS | Clinical Summary ---
Author Organization [facility] Address [address] [place] [address] Phone Care Team Providers Care Isotope Technician Name Role Phone Moshe Yuan MD Primary Care Provider [phone] Allergies Active Allergy Reactions Criticality Noted Date [...] Overview (12/06/2023): Noted on CT Head from [facility] (scanned in [facility]) - 07/2023 Also noted chronic small [...] Overview (08/17/2023): Dr Shaw Bass -- Cardiology [facility], [place], [place] Assessment & Plan (02/25/2024 2:13 PM EST): Orders: metoprolol (LOPRESSOR) 25 mg Oral Tablet; Take 1 Tablet by mouth daily as needed. metoprolol succinate (TOPROL-XL) 25 mg Oral Tablet Sustained Release 24 hr; Take 1 Tablet by mouth daily. Coronary artery disease invo lving ruby coronary artery of ruby heart without angina pectoris 08/17/2023 Overview (08/17/2023): Dr Shaw Bass -- Cardiology [place], [place] Hypercoagulable state due to paroxysmal atrial f ibrillation 08/17/2023 Cigarette nicotine dependence without complicati on 08/17/2023 Assessment & Plan (08/17/2023 2:43 PM EDT): Advised to quit Essential tremor 08/17/2023 Overview (08/17/2023): Saw Neurology [place] not to be parkinsons Assessment & Plan (02/25/2024 2:13 PM EST): Has been following with Neurology at [facility] ruling out Parkinsons Refer to our group at pts request Orders: metoprolol succinate (TOPROL-XL) 25 mg Oral Tablet Sustained Release 24 hr; Take 1 Tablet by mouth daily. Infrarenal abdominal aortic aneurysm (AAA) witho ut rupture 08/17/2023 Overview (08/17/2023): Cardiothoracic surgery -- Dr Mitchell Nuñez, [place], [place] Assessment & Plan (02/25/2024 2:13 PM EST): Refer to vascular with SEP, she prefers, was seeing [facility] Orders: AMB REFERRAL TO VASCULAR SURGERY [...] Team Description 12/25/2024 Telephone SEP Pulmonology [facility] [address] [address] Jaiden Dominique MD Other; Paperwork/forms [...] bone density assessment. Study was performed on [employer] 5. Bone Density: Region BMD T-score Z-score [...] Health Maintenance Insurance HUMANA MEDICARE HMO MR [facility] [address] [facility] [address] HUMANA MEDICARE HMO MR Care Teams Isotope Technician Relationship Specialty Start Date End Date Moshe Yuan MD [address] [place] [phone] PCP - General Family Medicine 08/17/23
== END 2025-02-27 23:59 | disposition home or self-care (01) ==
LOC: RT 11:16
PROVIDERS: PCP Internal Medicine; Visit Provider Nurse Practitioner
DX: I11.0 Hypertensive heart disease with heart failure (principal); I50.30 Unspecified diastolic (congestive) heart failure; I25.10 Atherosclerotic heart disease of native coronary artery without angina pectoris; I48.0 Paroxysmal atrial fibrillation; E78.5 Hyperlipidemia, unspecified; J44.9 Chronic obstructive pulmonary disease, unspecified; I71.40 Abdominal aortic aneurysm, without rupture, unspecified
CPT/HCPCS: 93306

== ENCOUNTER 2025-03-07 15:35 | Emergency (ER) | payer MEDICARE, OTHER, SELFPAY ==
[2025-03-07 15:46] VITALS: BP 160/63; PULSE 73; RESP 18; TEMP 36.6; O2SAT 97; BMI 24.5
--- NOTE | 2025-03-07 15:48 | CT_ITS ---
PROCEDURE INFORMATION: Exam: CT Head Without Contrast Exam date and time: 03/07/2025 4:13 PM Age: 79 years old Clinical indication: Injury or trauma; Other: Lamp hit head; Blunt trauma (contusions or hematomas); Additional info: Head trauma, headache TECHNIQUE: Imaging protocol: Computed tomography of the head without contrast. Radiation optimization: All CT scans at this facility use at least one of these dose optimization techniques: automated exposure control; mA and/or kV adjustment per patient size (includes targeted exams where dose is matched to clinical indication); or iterative reconstruction. COMPARISON: MR HEAD/BRAIN WO/W CON 06/26/2023 4:07 PM FINDINGS: Brain: Minor age-related cerebral volume loss. No acute intracranial hemorrhage. No intra- or extra-axial fluid collection. No mass effect or midline shift. Periventricular white matter changes compatible with chronic hypertensive microvascular disease. Cerebral ventricles: No hydrocephalus. Paranasal sinuses: No air fluid levels. Mastoid air cells: Visualized mastoid air cells are clear. Bones: No evidence of acute calvarial or skull base fracture. Soft tissues: Unremarkable. IMPRESSION: 1. No evidence of acute intracranial abnormality. 2. Chronic ancillary findings are detailed above.
--- NOTE | 2025-03-07 15:50 | PC.NURSE ---
Patient refused the Respiratory Swab.
--- OUTSIDE RECORDS SUMMARY | 2025-03-07 15:59 | XMS_ITS | Clinical Summary ---
Author Organization [facility] Address [address] [id number] Care Team Providers Care Bead Preparer Name Role Phone Jayla Bowie Primary Care Provider [phone] Social History Tobacco Use Types Packs/Day Years [...] of Treatment Not on file Care Teams Bead Preparer Relationship Specialty Start Date End Date Jayla Bowie PA [address] [place] [address] PCP - General 08/27/20
--- OUTSIDE RECORDS SUMMARY | 2025-03-07 15:59 | XMS_ITS | Clinical Summary ---
[facility] [address] [place] [address] Care Team Providers Care Chemistry Instructor Name Role Phone Moseh Yuan MD Primary Care Provi cristhian Allergies Active Allergy Reactions Criticality Noted Date Comments Aspirin Palpitations Low 01/27/2016 Headache and insomnia Codeine Nausea Only Low 06/26/2019 Contrast Dye (Echo Or Unknown Ct/Mr) 01/27/2016 Hypotension Other Nausea Only 01/27/2016 Unknown Kidney Pill - headache Peanut-Containing Drug Products Headache 09/19/2021 Medications nitroglycerin (NITROSTAT) 0.[address] under the tongue. 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
--- OUTSIDE RECORDS SUMMARY | 2025-03-07 15:59 | XMS_ITS | Clinical Summary ---
Author Organization [facility] Address [address] [place] [address] Phone Care Team Providers Care Auxiliary Operator Name Role Phone Moshe Yuan MD Primary Care Provider [phone] Allergies Active Allergy Reactions Criticality Noted Date [...] [facility] (scanned in [facility]) - 07/2023 Also noted chronic small vessel [...] Overview (08/17/2023): Dr Shaw Bass -- Cardiology [facility], [place], [place] Assessment & Plan (02/25/2024 2:13 PM EST): Orders: metoprolol (LOPRESSOR) 25 mg Oral Tablet; Take 1 Tablet by mouth daily as needed. metoprolol succinate (TOPROL-XL) 25 mg Oral Tablet Sustained Release 24 hr; Take 1 Tablet by mouth daily. Coronary artery disease invo lving [place] coronary artery of [place] heart without angina pectoris 08/17/2023 Overview (08/17/2023): Dr Shaw Bass -- Cardiology [place], [place] Hypercoagulable state due to paroxysmal atrial f ibrillation 08/17/2023 Cigarette nicotine dependence without complicati on 08/17/2023 Assessment & Plan (08/17/2023 2:43 PM EDT): Advised to quit Essential tremor 08/17/2023 Overview (08/17/2023): Saw Neurology [place] not to be parkinsons Assessment & Plan [...] (08/17/2023): Cardiothoracic surgery -- Dr Mitchell Nuñez, [place], [place] Assessment & Plan (02/25/2024 2:13 PM EST): Refer to vascular with SEP, she prefers, was seeing [facility] Orders: AMB REFERRAL TO VASCULAR [...] Care Team Description 12/25/2024 Telephone SEP Pulmonology [facility] [address] [phone] Jaiden Dominique MD Other; Paperwork/forms [...] bone density assessment. Study was performed on [employer] 5. Bone Density: Region BMD T-score Z-score [...] Health Maintenance Insurance HUMANA MEDICARE HMO MR [facility] [address] [facility] [address] HUMANA MEDICARE HMO MR Care Teams Auxiliary Operator Relationship Specialty Start Date End Date Moshe Yuan MD [address] [place] [phone] PCP - General Family Medicine 08/17/23
[2025-03-07 16:00] VITALS: BP 125/69; PULSE 70; O2SAT 96
--- NOTE | 2025-03-07 16:02 | HMH.EDGENADL ---
Discharge Plan Disposition Patient Disposition: Home, Self-Care Condition: Good Prescriptions Prescriptions: No Action vitamin E (dl, acetate) 45 mg (100 unit) capsule 45 mg PO DAILY Ubrelvy 100 mg tablet 100 mg PO ONCE PRN Patient Comments: TAKE 1 TABLET BY MOUTH ONCE DAILY NEEDED folic acid 800 mcg tablet 0.8 mg PO DAILY cholecalciferol (vitamin D3) 50 mcg (2,000 unit) capsule 2,000 unit PO DAILY omega-3 fatty acids [Fish Oil Concentrate] 1,000 mg capsule 1,000 mg PO DAILY nitroglycerin 0.4 mg tablet, sublingual 0.4 mg sublingual Q5-15M PRN Rx Instructions: do not exceed 3 doses per episode ondansetron HCl 4 mg tablet 4 mg PO Q8H PRN (Reason: nausea and vomiting) Qty: 90 2RF fexofenadine 180 mg tablet 180 mg PO DAILY Qty: 90 2RF metoprolol succinate 25 mg tablet extended release 24 hr 25 mg PO DAILY Qty: 90 1RF metoprolol tartrate 25 mg tablet 25 mg PO DAILY Qty: 90 1RF clopidogrel [Plavix] 75 mg tablet 75 mg PO DAILY Qty: 90 1RF omeprazole 20 mg capsule,delayed release(/EC) See Rx Instructions .ROUTE .COMPLEX Qty: 90 3RF Dose Instruction: Take 1 capsule by mouth once daily Rx Instructions: Take 1 capsule by mouth once daily Referrals Follow up/Referrals: Mandeep Barajas DO [Primary Care Provider, Family Practice] - See instructions Activity Restrictions/Add. Instructions Additional Instructions/Restrictions: Your CT scan was negative. I want you to follow-up in the clinic with Dr. Barajas for further evaluation and monitoring of your symptoms. You may take ibuprofen and Tylenol at home for pain Clinical Impressions Clinical Impression: Head injury Qualifiers: Encounter type: initial encounter Qualified Code(s): S09.90XA - Unspecified injury of head, initial encounter Print Language Print Language: Serbian Discharge ED Provider: Tommy Medrano Adult HPI General Chief complaint: Headache Stated complaint: AO 11-20 lamp hit her in the head,pain and nausea Time Seen by Provider: 03/07/25 15:39 Mode of Arrival: Ambulatory Source of Information: Patient Description of Symptoms (Recalled from ER Triage Doc. by RN): pt pulled a lamp down on her head on sunday. on plavix. saw Dr barajas this week and he told her to come to er and be evaluated if symptoms persisted such as a headache,nausea History of Present Illness HPI narrative: This is a 79-year-old female patient, with past medical history of hypertension, GERD, anxiety, COPD, tobacco abuse, and HFpEF, who is presenting to the Emergency Department today for evaluation of a headache. The patient states that 2 days ago she was sitting in her floor and she reached to pull something off of a counter when a heavy lamp fell down onto her head. The lamp impacted the right parietal aspect of her head. She did not lose conscious. She has not had any vomiting since that time and no gait instability. She states that she initially saw her primary care provider Dr. Barajas who stated that she should come to the emergency department if she has worsening headaches. She tells me that over the last 2 days she has developed malaise, body aches, and overall feeling of being unwell. She states that her headaches have worsened and she has developed nausea. Related Data Home Medications ?Medication ?Instructions ?Recorded ?Confirmed cholecalciferol (vitamin D3) 50 2,000 unit PO DAILY 06/06/19 03/03/25 mcg (2,000 unit) capsule folic acid 800 mcg tablet 0.8 mg PO DAILY 06/06/19 03/03/25 vitamin E (dl, acetate) 45 mg (100 45 mg PO DAILY 07/30/23 03/03/25 unit) capsule nitroglycerin 0.4 mg sublingual 0.4 mg sublingual Q5-15M PRN 07/04/24 03/03/25 tablet ubrogepant 100 mg tablet (Ubrelvy) 100 mg PO ONCE PRN 12/08/24 03/03/25 omega-3 fatty acids 1,000 mg 1,000 mg PO DAILY 02/10/25 03/03/25 capsule (Fish Oil Concentrate) Previous Rx's ?Medication ?Instructions ?Recorded fexofenadine 180 mg tablet 180 mg PO DAILY #90 tabs 10/09/24 ondansetron HCl 4 mg tablet 4 mg PO Q8H PRN nausea and 10/09/24 vomiting #90 tabs metoprolol succinate 25 mg 25 mg PO DAILY #90 tabs 10/24/24 tablet,extended release 24 hr metoprolol tartrate 25 mg tablet 25 mg PO DAILY #90 tabs 10/24/24 Plavix 75 mg tablet (clopidogrel) 75 mg PO DAILY #90 tabs 10/31/24 omeprazole 20 mg capsule,delayed See Rx Instructions .Route 12/26/24 release .COMPLEX #90 caps Allergies Allergy/AdvReac Type Severity Reaction Status Date / Time Iodinated Contrast Media Allergy Mild Unknown Verified 03/03/25 10:49 allergy reaction Sulfa (Sulfonamide Allergy Mild Vomiting Verified 03/03/25 10:49 Antibiotics) amoxicillin (AMOXICILLIN) Allergy Unknown NA-NAUSEA/V Verified 03/03/25 10:49 OMITING aspirin (ASPIRIN) Allergy Unknown HEART Verified 03/03/25 10:49 PAL/HEADACHES varenicline (From CHANTIX) Allergy Unknown NA-NAUSEA/V Verified 03/03/25 10:49 OMITING/HEA DACHES red dye Allergy Unknown Verified 03/03/25 10:49 allergy reaction rosuvastatin (From Crestor) AdvReac Intermediate headache, Verified 03/03/25 10:49 all over body feeling bad fluoxetine (From Prozac) AdvReac suicidal Verified 03/03/25 10:49 thoughts PFSH PFSH Disclaimer: The information contained in this section may have been updated after the patient was seen, as this information can be updated by other users. Medical History (HFpEF) heart failure with preserved ejection fraction Abdominal pain Abdominal pain, LLQ Acute abdominal pain Acute dehydration Acute knee pain Acute shoulder pain Anesthesia of skin Anxiety Arrhythmia Body lice COPD (chronic obstructive pulmonary disease) Elbow pain Fall Fever GERD (gastroesophageal reflux disease) Gout attack Hypertension Knee pain Low sodium levels Migraine Nausea & vomiting Osteoarthritis Pelvic pain in female Pneumonia Pyelonephritis Rheumatoid arthritis Right hip pain Right knee pain Thoracic back pain Upper respiratory infection Vomiting Surgical History H/O dilation and curettage H/O eye surgery x4 History of appendectomy History of hysterectomy Hx of cholecystectomy Family History Other Family history of cancer Family history of myocardial infarction Social History Smoking Status: Current every day smoker tobacco type: cigarettes packs per day: 1 smoking status start date: 15 yo second hand exposure: Yes alcohol intake: never substance use type: denies use current occupational status: disabled Travel in the last 8 weeks?: None caffeine: No Have you lived/traveled outside US in past 30 days?: No Contact w/someone who lives/traveled outside US past 30 days?: No Exposure to someone with infectious disease in past 14 days?: No Do you have a fever (greater than 100.4 F or 38 C)?: No Have you tested positive for COVID-19?: No Exposed to someone with COVID-19 in past 14 days?: No Do you have a sore throat?: No Do you have a cough?: No Do you have any weakness?: No Do you have any diarrhea?: No Are you experiencing any unusual bleeding?: No Do you have any muscle aches/pain?: No Do you have any abdominal pain?: No Are you experiencing loss of taste or smell?: No Other Medical History Have you received the Flu Vaccine for this season: No Have you received the Pneumonia Vaccine: Yes ROS Obtained: Yes Systems reviewed as appropriate & no additional complaints except as documented Physical Exam General General appearance: other (See MDM) Respiratory Respiratory exam: Present other (See MDM) Cardiovascular Cardiovascular exam: Present other (See MDM) Neurological Exam Neurological exam: Present other (See MDM) Medical Decision Making Medical Records Medical records reviewed: Yes I reviewed the patient's medical records. Screening: Per USPSTF and CDC recommendations, given the prevalence of disease in our region, it is our hospital?s policy to screen for HIV and viral Hepatitis for all patients aged 18 and over and those with ongoing risk factors. Lai Inquiry Pt receiving controlled substance: No Lai was queried for this patient: No Vital Signs: 03/07/25 15:46 03/07/25 16:00 03/07/25 16:30 Temperature 97.9 F Temperature Source Oral Pulse Rate 70 72 Pulse Rate [Right] 73 Respiratory Rate 18 Blood Pressure 125/69 139/67 Blood Pressure [Right Arm] 160/63 H Blood Pressure Mean [Right Arm] 95 02 Sat by Pulse Oximetry 97 96 95 Oxygen Delivery Method Room Air Room Air Room Air 03/07/25 17:00 03/07/25 17:30 Temperature Temperature Source Pulse Rate 75 66 Pulse Rate [Right] Respiratory Rate Blood Pressure 126/60 126/63 Blood Pressure [Right Arm] Blood Pressure Mean [Right Arm] 02 Sat by Pulse Oximetry 93 L 96 Oxygen Delivery Method Room Air Room Air Orders (Tests/Meds): ED MEDICATIONS Discontinued Medications Generic Name Dose Route Start Last Admin Trade Name Nuvia PRN Reason Stop Dose Admin Acetaminophen 1,000 mg 03/07/25 16:05 03/07/25 16:20 Acetaminophen 500mg Tab PO 03/07/25 16:06 1,000 mg ONCE ONE Administration Prochlorperazine Maleate 10 mg 03/07/25 16:05 03/07/25 16:20 Prochlorperazine 10mg Tablet PO 03/07/25 16:06 10 mg ONCE ONE Administration ORDERS Category Date Time Status CT head/brain wo con Stat Cat Scan 03/07/25 15:48 Completed Medical Decision Narrative: In summary, this is a 79-year-old female patient who is presenting to the emergency department today for evaluation of worsening headache as well as malaise after a heavy lamp fell off the counter and hit her in the head at home a couple of days ago. She has comorbidities including hypertension, GERD, anxiety, COPD, and HFpEF. On initial evaluation of the patient they were resting comfortably in no acute distress and nontoxic in appearance. They are hemodynamically stable, saturating well room air, and are neurologically intact. On physical examination the patient is appropriately alert and oriented with a GCS of 15. She has 5 out of 5 strength in her bilateral upper and lower extremities. Cranial nerves II through XII are intact. No abnormal cerebellar signs. Heart and lungs are clear to auscultation bilaterally. Regarding traumatic survey the patient does have a very small hematoma on the right parietal aspect of her head. Otherwise she has no C, T, or L-spine tenderness. The patient is on Plavix which places her at an elevated risk for intracranial hemorrhages. Differential diagnosis includes intracranial hemorrhage, skull fracture, among others. Given the fact that the patient is experiencing constitutional symptoms such as body aches, malaise, and overall feeling of unwellness I did also consider the possibility of her having a viral illness that is confounding this headache. We have offered COVID and flu swabs and she has declined. Workup is initiated with CT scan of the head. Initial interventions included oral Tylenol as well as Compazine. CT head was personally turbid by me and demonstrates no large intracranial hemorrhages. Official radiology read is in agreement states there is no acute abnormality. On repeat assessment the patient she states that her headache has significantly improved and resolved. She is reassured by her CT scan findings today. I have asked for her to follow-up in the clinic with Dr. Barajas for further evaluation monitoring of her symptoms. At this time all questions been answered and all parties are agreeable with the decision of discharge home Critical Care Critical Care Time Critical Care Time: No
[2025-03-07] MEDS: ACETAMINOPHEN 500MG TAB 1000 MG PO (16:20)
[2025-03-07] MEDS: PROCHLORPERAZINE 10MG TABLET 10 MG PO (16:20)
--- NOTE | 2025-03-07 16:23 | PC.NURSE ---
pt refsued covid swab. provider notified
[2025-03-07 16:30] VITALS: BP 139/67; PULSE 72; O2SAT 95
[2025-03-07 17:00] VITALS: BP 126/60; PULSE 75; O2SAT 93
[2025-03-07 17:30] VITALS: BP 126/63; PULSE 66; O2SAT 96
[2025-03-07 17:48] VITALS: BP 126/63; PULSE 80; RESP 14; TEMP 36.9; O2SAT 99
== END 2025-03-07 17:48 | disposition home or self-care (01) ==
PROVIDERS: Emergency Provider Student in an Organized Health Care Education/Training Program; PCP Internal Medicine
DX: S09.90XA Unspecified injury of head, initial encounter (principal); R51.9 Headache, unspecified; R11.0 Nausea; W20.8XXA Other cause of strike by thrown, projected or falling object, initial encounter
CPT/HCPCS: 70450; 99284; Q0164

== ENCOUNTER 2025-04-02 08:24 | Outpatient (CLI) | payer MEDICARE, OTHER, SELFPAY ==
--- NOTE | 2025-04-02 08:30 | US_ITS ---
FINAL REPORT TECHNIQUE: Sonographic images of the abdomen were obtained in all four quadrants. CLINICAL HISTORY: Abd pain/bloating FINDINGS: LIVER: Homogeneous. No focal hepatic lesion or intrahepatic biliary dilatation. The portal vein is patent with normal directional flow. GALLBLADDER: The gallbladder is absent. The common duct measures 3 mm. This is within normal limits for age. PANCREAS: Unremarkable. RIGHT KIDNEY: 11.0 cm. No hydronephrosis, mass or stone. LEFT KIDNEY: 12.5 cm. There is no hydronephrosis or stone. There is a lower pole cyst with a single stent septum measuring 3.7 cm. SPLEEN: 11.8 cm. No focal splenic lesion. AORTA/IVC: There is an abdominal aortic aneurysm measuring 4.8 cm. Visualized IVC within normal limits. OTHER: No ascites. IMPRESSION: Abdominal aortic aneurysm. If in the kidney, consider CTA. Left renal cyst. Reviewed, Interpreted and Dictated by Claire Messina MD Transcribed by Luda Oglesby Authenticated and [facility]
--- OUTSIDE RECORDS SUMMARY | 2025-04-02 08:35 | XMS_ITS | Clinical Summary ---
Author Organization Healthcare Address [address] [id number] Care Team Providers Care Settlement Technician Name Role Phone Jayla Bowie Primary Care Provider [phone] Social History Tobacco Use Types Packs/Day Years [...] of Treatment Not on file Care Teams Settlement Technician Relationship Specialty Start Date End Date Jayla Bowie PA [address] [place] [address] PCP - General 08/27/20
--- OUTSIDE RECORDS SUMMARY | 2025-04-02 08:35 | XMS_ITS | Clinical Summary ---
[facility] Address [address] [place] [address] Care Team Providers Care Ward Helper Name Role Phone Moshe Yuan MD Primary [...] tablet Place under the tongue. 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
--- OUTSIDE RECORDS SUMMARY | 2025-04-02 08:35 | XMS_ITS | Clinical Summary ---
Author Organization [facility] Address [address] [place] [address] Phone Care Team Providers Care Environmental Health Specialist Name Role Phone Moshe Yuan MD Primary Care Provider [phone] Allergies Active Allergy Reactions Criticality Noted Date [...] (12/06/2023): Noted on CT Head from [facility] (scanned in [facility]) - 07/2023 Also noted chronic [...] Overview (08/17/2023): Dr Shaw Bass -- Cardiology [facility], [place], [place] Assessment & Plan (02/25/2024 2:13 PM EST): Orders: metoprolol (LOPRESSOR) 25 mg Oral Tablet; Take 1 Tablet by mouth daily as needed. metoprolol succinate (TOPROL-XL) 25 mg Oral Tablet Sustained Release 24 hr; Take 1 Tablet by mouth daily. Coronary artery disease invo lving kaw coronary artery of kaw heart without angina pectoris 08/17/2023 Overview (08/17/2023): Dr Shaw Bass -- Cardiology [place], [place] Hypercoagulable state due to paroxysmal atrial f ibrillation 08/17/2023 Cigarette nicotine dependence without complicati on 08/17/2023 Assessment & Plan (08/17/2023 2:43 PM EDT): Advised to quit Essential tremor 08/17/2023 Overview (08/17/2023): Saw Neurology [facility] not to be parkinsons Assessment & Plan (02/25/2024 2:13 PM EST): Has been following with Neurology at [facility] ruling out Parkinsons Refer to our group at pts request Orders: metoprolol succinate (TOPROL-XL) 25 mg Oral Tablet Sustained Release 24 hr; Take 1 Tablet by mouth daily. Infrarenal abdominal aortic aneurysm (AAA) witho ut rupture 08/17/2023 Overview (08/17/2023): Cardiothoracic surgery -- Dr Mitchell Nuñez, [place], [place] Assessment & Plan (02/25/2024 2:13 PM EST): Refer to vascular with [facility], she prefers, was seeing [facility] Orders: AMB REFERRAL TO VASCULAR [...] (data deficit). History of tobacco abuse 08/17/202306/2023 Immunizations Immunization Administration Dates Next Due Influenza [...] disease with dys kinesia and fluctuating manifestations ([facility]) 08/17/2023 Abdominal aortic aneurysm (A AA) 3.0 cm to 5.0 cm in diameter in female 08/17/2023 Kidney cysts Social History Tobacco Use Types Packs/Day Years Used Date Smoking Tobacco: Every Day Cigarettes 1 66 Started: 04/16/1959 Passive Smoke Exposure: Never Smokeless [...] the ordering clinician. us Jaiden Dominique MD [facility] CT ORDERABLES Final Result * DX BONE DENSITY AXIAL SKELETON (10/31/2023 1:29 PM EDT) Anatomical Region Laterality Modality Dexa Scan 10/31/2023 Impressions 11/01/2023 3:15 PM EDT Indication: The patient is a female age 65 or older who requires a bone density assessment. Study was performed on Aptible 5. Bone Density: Region BMD T-score Z-score [...] Cardona PA-C, CCD on 10/31/2023 2:03:00 PM. Moshe Yuan MD IMG DEXA ORDERABLES Final Res ult from Last 3 Months or Most Recently Relevant to Health Maintenance Insurance [employer]NA MEDICARE HMO MR [facility] [address] [place] [address] [address] HU[employer]NA MEDICARE HMO MR Care Teams Environmental Health Specialist Relationship Specialty Start Date End Date Moshe Yuan MD [address] [place] [address] PCP - General Family Medicine 08/17/23
== END 2025-04-02 23:59 | disposition home or self-care (01) ==
LOC: RAD 08:25
PROVIDERS: PCP Internal Medicine; Visit Provider Internal Medicine
DX: I71.40 Abdominal aortic aneurysm, without rupture, unspecified (principal); N28.1 Cyst of kidney, acquired; Z90.49 Acquired absence of other specified parts of digestive tract
CPT/HCPCS: 76700